=== PATIENT | male | born 1965 | race Hispanic/Latino ===

== ENCOUNTER 2018-08-14 08:41 | Inpatient (IN) | payer MEDICARE ==
[2018-08-14] VITALS (20 sets, daily range): BP systolic 143–183; BP diastolic 61–109
[~2018-08-14] VITALS: Ht 167.6 cm; Wt 81.3 kg
[~2018-08-14 08:41] MED LIST: BENTYL10 MG PO; CEFDINIR300 MG PO; CLONIDINE HCL0.1 MG PO; DEXILANT30 MG PO; GABAPENTIN100 MG PO; HYDRALAZINE HCL50 MG PO; ISOSORBIDE DINI20 MG PO; LABETALOL HCL200 MG PO; LISINOPRIL10 MG PO; OMEPRAZOLE20 M1 PO; PLAVIX75 MG PO; PRAVASTATIN SOD20 MG PO; SERTRALINE HCL50 MG PO; ULTRAM 50MG50 MG PO
--- OUTSIDE RECORDS SUMMARY | 2018-08-14 08:45 | XMS REPORT ---
Author Author [facility] Address Unknown Phone Unavailable Care Team Providers Care [employer] Hand Name Role Phone Unavailable Unavailable Problems This patient has no known problems. Allergies, Adverse Reactions, Alerts This patient has no known allergies or adverse reactions. Medications This patient has no known medications. Encounters Start Date/Time End Date/Time Encounter Type Admission Type Attending [facility] Facility Care Department Encounter ID 2018-06-22 00:00:00 2018-06-22 00:00:00 Outpatient [facility] [id number] 2018-06-16 00:00:00 2018-06-16 00:00:00 Outpatient [facility] [id number] 2018-06-15 00:00:00 2018-06-15 00:00:00 Outpatient [facility] [id number] 2018-05-18 00:00:00 2018-05-18 00:00:00 Outpatient [facility] [id number] 2018-05-16 00:00:00 2018-05-16 00:00:00 Outpatient [facility] [id number] 2018-05-12 15:43:22 2018-05-12 15:43:22 Outpatient [facility] [id number] 2018-05-12 00:00:00 2018-05-12 00:00:00 Outpatient [facility] [id number] 2018-05-04 00:00:00 2018-05-04 00:00:00 Outpatient [facility] [id number] 2018-04-11 00:00:00 2018-04-11 00:00:00 Outpatient [facility] [id number] 2018-03-11 00:00:00 2018-03-11 00:00:00 Outpatient [facility] [id number] 2018-01-06 00:00:00 2018-01-06 00:00:00 Outpatient [facility] [id number] 2017-11-26 13:31:15 2017-11-26 13:31:15 Outpatient [facility] [id number] 2017-11-26 12:01:33 2017-11-26 12:01:33 Outpatient [facility] [id number] 2017-11-24 00:00:00 2017-11-24 00:00:00 Outpatient [facility] [id number] 2017-10-21 15:39:05 2017-10-21 15:39:05 Outpatient [facility] [id number] 2017-10-20 00:00:00 2017-10-20 00:00:00 Outpatient [facility] [id number] 2017-10-13 09:56:09 2017-10-13 09:56:09 Outpatient [facility] [id number] 2017-10-13 09:40:29 2017-10-13 09:40:29 Outpatient [facility] [id number] 2017-10-06 08:24:23 2017-10-06 08:24:23 Outpatient [facility] [id number] 2017-09-24 13:01:31 2017-09-24 13:01:31 Outpatient [facility] [id number] 2017-09-22 12:05:38 2017-09-22 12:05:38 Outpatient [facility] [id number] 2017-09-15 00:00:00 2017-09-15 00:00:00 Outpatient [facility] [id number] 2017-09-01 00:00:00 2017-09-01 00:00:00 Outpatient [facility] [id number] 2017-08-26 14:42:27 2017-08-26 14:42:27 Outpatient [facility] [id number] 2017-07-20 00:00:00 2017-07-20 00:00:00 Outpatient [facility] [id number] 2017-07-14 15:18:21 2017-07-14 15:18:21 Outpatient [facility] [id number] 2017-06-23 00:00:00 2017-06-23 00:00:00 Outpatient [facility] [id number] 2017-06-03 00:00:00 2017-06-03 00:00:00 Outpatient [facility] [id number]
[2018-08-14] MEDS ORDERED: SODIUM CHLORIDE 0.9% 1000ML 1,000 ML IV STA (09:06)
[2018-08-14] MEDS ORDERED: LEVOFLOXACIN 500MG/D5W 100ML 100 ML IV STA (09:40)
[2018-08-14] MEDS ORDERED: ACETAMINOPHEN 1000 MG/100 ML IV NR (09:45)
[2018-08-14 09:48] LABS: BASOPHILS % 0.5 % (0.0-1.0); EOSINOPHILS # (AUTO) 0.1 (0.0-0.4); EOSINOPHILS % 0.6 % (0.0-6.0); HEMATOCRIT 17.7 % (38.2-49.6); LYMPHOCYTES # (AUTO) 0.5 (1.0-3.2); LYMPHOCYTES % 6.3 % (18.0-39.1); MEAN CORPUSCULAR HEMOGLOBIN 29.2 pg (28-32); MEAN CORPUSCULAR HGB CONC 32.2 g/dL (31-35); MEAN CORPUSCULAR VOLUME 90.8 fL (81-99); MONOCYTES # (AUTO) 0.7 (0.2-0.8); MONOCYTES % 8.3 % (4.4-11.3); NEUTROPHILS # (AUTO) 6.8 (2.1-6.9); PLATELET COUNT 169 x10e3/uL (140-360); RED BLOOD COUNT 1.95 x10e6/uL (4.3-5.7); RED CELL DISTRIBUTION WIDTH 14.6 % (11.7-14.4)
[2018-08-14 09:51] LABS: HEMOGLOBIN 5.7 g/dL (14.0-18.0)
[2018-08-14 09:59] LABS: INR 1.26; PROTHROMBIN TIME 16.9 seconds (11.9-14.5)
[2018-08-14 10:00] LABS: ALBUMIN/GLOBULIN RATIO 0.9 (0.8-2.0); ANION GAP 16.2 mmol/L (8-16); CALCIUM 7.7 mg/dL (8.4-10.2); CREATININE, SERUM 7.23 mg/dL (0.72-1.25); MAGNESIUM 1.5 MG/DL (1.3-2.1); PARTIAL THROMBOPLASTIN TIME 47.4 seconds (23.8-35.5); POTASSIUM 4.2 mmol/L (3.5-5.1)
[2018-08-14] MEDS ORDERED: MEROPENEM 1GM 100 ML IV NR (10:00)
[2018-08-14] MEDS ORDERED: SODIUM CHLORIDE 0.9% 250ML 250 ML IV ONE (10:00)
[2018-08-14 10:02] LABS: COLOR,URINE YELLOW (YELLOW)
[2018-08-14 10:03] LABS: BILIRUBIN,URINE NEGATIVE (NEGATIVE); CLARITY,URINE CLEAR (CLEAR); KETONES,URINE NEGATIVE (NEGATIVE); LEUKOCYTE ESTERASE ,URINE 1+ (NEGATIVE); NITRITE,URINE NEGATIVE (NEGATIVE); PROTEIN,URINE DIPSTICK 2+ (NEGATIVE); URINE UROBILINOGEN 0.2 mg/dL (0.2 - 1)
[2018-08-14 10:14] LABS: BACTERIA,URINE RARE /HPF; RBC,URINE 0-5 /HPF (0-5); WBC,URINE (MAN) 21-50 /HPF (0-5)
[2018-08-14 10:24] LABS: B-TYPE NATRIURETIC PEPTIDE2 330.6 pg/mL (0-100)
[2018-08-14 10:25] LABS: INFLUENZAE A&B ANTIGEN (RAPID) NEGATIVE (NEGATIVE)
--- NOTE | 2018-08-14 10:34 | NUR ---
PER DR LINDO GFR 8 ORDERED TO STOP IV FLUIDS - DONE
[2018-08-14 10:35] LABS: STREPTOCOCCUS GRP A ANTIGEN NEGATIVE (NEGATIVE)
[2018-08-14 10:51] LABS: CREATINE KINASE MB 0.8 ng/mL (0-5.0)
--- NOTE | 2018-08-14 11:00 | Diagnostic Imaging Report ---
EXAMINATION: CHEST SINGLE (PORTABLE) COMPARISON: Report of chest x-ray performed 11/23/2016. Images are not available for comparison. INDICATION: Shortness of breath DISCUSSION: Frontal view of the chest obtained at 1038 hours. HEART AND MEDIASTINUM: The heart is mildly enlarged. Central pulmonary vasculature is prominent. LINES: None. LUNGS: Patchy airspace opacities in the left lung base may be the result of vascular congestion or an alveolar process such as pneumonia. No interstitial thickening. PLEURA: No pleural effusion or pneumothorax. BONES AND SOFT TISSUES: No focal osseous lesion. The soft tissues are normal. IMPRESSION: Cardiomegaly and vascular prominence. Patchy airspace opacities in the left lung base may be vascular or the result of an alveolar process. Recommend correlation with PA and lateral chest x-ray if clinically feasible. Signed by: Dr. Clifford Yee MD on 08/14/2018 10:57 AM
--- NOTE | 2018-08-14 11:03 | NUR ---
TYPE AND CROSS SENT
--- NOTE | 2018-08-14 11:30 | NUR ---
CONSENT FOR BLOOD PRODUCT ADMINISTRATION SIGNED BY PT. Addendum: 08/14/18 at [address] LINDO SIGNS BLOOD ADMINISTRATION CONSENT FORM. ALL CONSENT SIGNATURES COMPLETE AT THIS TIME.
[2018-08-14] MEDS ORDERED: AZTREONAM 2 GM VIAL IV SCH (11:45)
[2018-08-14] MEDS ORDERED: DEXTROSE 50% SYRINGE 50 ML IV PRN (11:45)
[2018-08-14] MEDS ORDERED: SODIUM CHLORIDE 0.9% 1000ML 1,000 ML IV ONE (11:45)
--- OUTSIDE RECORDS SUMMARY | 2018-08-14 11:56 | XMS REPORT | Clinical Summary ---
Author Author [facility] Organization [facility] Address Unknown Phone Unavailable Care Team Providers Care Tobacco Cloth Reclaimer Name Role Phone Mario Nickerson MD PCP Allergies No Known Allergies Medications End Date Status Medication Sig Dispensed Refills Start Date Active clopidogrel (PLAVIX) 75 TAKE 1 TABLET 90 tablet 1 mg tabletIndications: BY MOUTH 6 Cerebrovascular accident EVERY DAY (CVA) due to other mechanism Active clotrimazole (LOTRIMIN) 1 Apply 1-2 30 mL 3 % external drops to 7 solutionIndications: affected Onychomycosis nails 2 times a day. Use a nail file to keep nails thin. Treatment may take up to 1 year. Active amLODIPine (NORVASC) 10 Take 1 tablet 90 tablet 3 mg tabletIndications: HTN by mouth 8 (hypertension), benign daily. Active calcitriol (ROCALTROL) Take 1 90 capsule 3 0.25 mcg capsule by 8 capsuleIndications: mouth daily. Vitamin D deficiency Active labetalol (NORMODYNE) 200 TAKE 2 180 tablet 0 mg tabletIndications: HTN TABLETS (400 8 (hypertension), benign MG) BY MOUTH EVERY 8 HOURS DIRECTED. Active sevelamer carbonate Take 1 tablet 270 tablet 2 (RENVELA) 800 mg by mouth 3 8 tabletIndications: CKD times daily (chronic kidney disease), with meals. stage V, Hyperphosphatemia Active pravastatin (PRAVACHOL) TAKE 1 TABLET 90 tablet 1 20 mg tabletIndications: BY MOUTH ONCE 8 Mixed hyperlipidemia AT BEDTIME Active sertraline (ZOLOFT) 50 mg Take 1 tablet 90 tablet 1 tabletIndications: by mouth 8 Anxiety disorder, daily. unspecified type Active isosorbide dinitrate Take 1 tablet 270 tablet 1 (ISORDIL) 20 mg by mouth 3 8 tabletIndications: times daily. Coronary artery disease 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 pectoris Active Leg Brace (KNEE SUPPORT by 2 Each 0 BRACE) MiscIndications: Misc.(Non-Phillip 8 Arthralgia of both lower g; Combo legs, Physical Route) route deconditioning, Dynasplint or Hemiplegia, dominant side smiliar for S/P CVA (cerebrovascular knee. accident) Active hydrALAZINE (APRESOLINE) TAKE 4 360 tablet 3 25 mg tabletIndications: TABLETS BY 8 Essential hypertension MOUTH every 8 hours. Active baclofen (LIORESAL) 10 mg Take 1 tablet 60 tablet 3 tabletIndications: Spasm by mouth 2 8 of muscle times daily. Active labetalol (NORMODYNE) 200 TAKE 1 TABLET 180 tablet 1 mg tabletIndications: HTN BY MOUTH 8 (hypertension), benign TWICE A DAY Active DEXILANT 30 mg delayed TAKE 1 90 capsule 1 release CAPSULE BY 8 capsuleIndications: MOUTH DAILY. Gastroesophageal reflux disease without esophagitis Active lisinopril (PRINIVIL, Take 1 tablet 180 tablet 1 ZESTRIL) 20 mg by mouth 2 8 tabletIndications: HTN times daily. (hypertension), benign 08/26/2017 Discontinued folic acid (FOLVITE) 1 mg Take 1 mg by 0 tablet mouth daily. 08/26/2017 Discontinued predniSONE (DELTASONE) 10 Take 10 mg by 0 mg tablet mouth daily. 08/26/2017 Discontinued lisinopril (ZESTRIL) 20 Take 1 tablet 30 tablet 1 mg tabletIndications: by mouth 5 Essential hypertension, daily. benign 08/26/2017 Discontinued gabapentin (NEURONTIN) Take 1 90 capsule 3 100 mg capsule by 5 capsuleIndications: CVA mouth 3 times daily. 08/26/2017 Discontinued cyclobenzaprine Take 1 tablet 60 tablet 1 (FLEXERIL) 10 mg by mouth 3 5 tabletIndications: Back times daily pain as needed for Muscle Spasms. 08/26/2017 Discontinued ketoconazole (NIZORAL) 2 Apply to 60 g 0 % topical affected area 5 creamIndications: daily. 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 08/26/2017 Discontinued insulin NPH (NOVOLIN N, Inject 8 20 mL 3 HUMULIN N) 100 unit/mL Units under 6 injectionIndications: the skin Diabetes mellitus type 2, every morning controlled, with (before complications breakfast). 08/26/2017 Discontinued lidocaine 5 % Apply to 1 Tube 0 OintIndications: Low back affected 6 pain without sciatica, area. unspecified back pain laterality, unspecified chronicity 08/26/2017 Discontinued dexlansoprazole Take 1 90 capsule 1 (DEXILANT) 30 mg delayed capsule by 6 release mouth daily. capsuleIndications: Gastroesophageal reflux disease without esophagitis 09/24/2017 Discontinued baclofen (LIORESAL) 10 mg Take 1 tablet 60 tablet 1 tabletIndications: Spasm by mouth 2 6 of muscle times daily. 08/26/2017 Discontinued loratadine (CLARITIN) 10 Take 1 tablet 90 tablet 1 mg tabletIndications: by mouth 6 Postnasal drip daily. 08/26/2017 Discontinued mometasone (NASONEX) 50 2 Sprays by 17 g 3 mcg/actuation nasal each nostril 6 sprayIndications: route daily. Postnasal drip 08/26/2017 Discontinued pravastatin (PRAVACHOL) Take 1 tablet 90 tablet 1 20 mg tabletIndications: by mouth at 6 Mixed hyperlipidemia bedtime nightly. 08/26/2017 Discontinued labetalol (NORMODYNE) 200 TAKE 1 TABLET 180 tablet 1 mg tabletIndications: HTN BY MOUTH 2 6 (hypertension), malignant TIMES DAILY.. 08/26/2017 Discontinued lisinopril (PRINIVIL, TAKE 1 TABLET 180 tablet 1 ZESTRIL) 20 mg BY MOUTH 7 tabletIndications: HTN TWICE A DAY (hypertension), benign 10/21/2017 Discontinued sertraline (ZOLOFT) 50 mg TAKE 1 TABLET 90 tablet 1 tabletIndications: BY MOUTH 7 Anxiety disorder, EVERY DAY unspecified type 08/13/2017 Discontinued hydrALAZINE (APRESOLINE) TAKE 3 360 tablet 0 25 mg tabletIndications: TABLETS BY 7 Essential hypertension MOUTH every 8 hours. 09/24/2017 Discontinued cloNIDine HCl (CATAPRES) Take 1 tablet 180 tablet 1 0.1 mg tabletIndications: by mouth 2 7 Essential hypertension times daily. 02/28/2018 Discontinued isosorbide dinitrate Take 1 tablet 270 tablet 1 (ISORDIL) 20 mg by mouth 3 7 tabletIndications: times daily. Coronary artery disease 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 pectoris 09/24/2017 Discontinued hydrALAZINE (APRESOLINE) TAKE 3 360 tablet 0 25 mg tabletIndications: TABLETS BY 8 Essential hypertension MOUTH every 8 hours. 02/12/2018 Discontinued lisinopril (PRINIVIL, Take 1 tablet 180 tablet 1 ZESTRIL) 20 mg by mouth 2 8 tabletIndications: HTN times daily. (hypertension), benign 02/12/2018 Discontinued pravastatin (PRAVACHOL) Take 1 tablet 90 tablet 1 20 mg tabletIndications: by mouth at 8 Mixed hyperlipidemia bedtime nightly. 05/18/2018 Discontinued dexlansoprazole Take 1 90 capsule 1 (DEXILANT) 30 mg delayed capsule by 8 release mouth daily. capsuleIndications: Gastroesophageal reflux disease without esophagitis 10/25/2017 Discontinued labetalol (NORMODYNE) 200 TAKE 1 TABLET 180 tablet 1 mg tabletIndications: HTN BY MOUTH 2 8 (hypertension), benign TIMES DAILY.. 12/24/2017 Discontinued hydrALAZINE (APRESOLINE) TAKE 4 360 tablet 1 25 mg tabletIndications: TABLETS BY 8 Essential hypertension MOUTH every 8 hours. 10/06/2017 tropicamide (MYDRIACYL) Instill 1 15 mL 0 0.5 % ophthalmic Drop in each 8 solutionIndications: eye once as Controlled type 2 needed for up diabetes mellitus with to 1 dose complication, without (for poor long-term current use of retina scan insulin image). 05/04/2018 Discontinued sertraline (ZOLOFT) 50 mg TAKE 1 TABLET 90 tablet 1 tabletIndications: BY MOUTH 8 Anxiety disorder, EVERY DAY unspecified type 11/23/2017 Discontinued labetalol (NORMODYNE) 200 TAKE 2 180 tablet 0 mg tabletIndications: HTN TABLETS (400 8 (hypertension), benign MG) BY MOUTH EVERY 8 HOURS DIRECTED 05/12/2018 Discontinued hydrALAZINE (APRESOLINE) TAKE 4 360 tablet 3 25 mg tabletIndications: TABLETS BY 8 Essential hypertension MOUTH every 8 hours. 08/01/2018 Discontinued lisinopril (PRINIVIL, TAKE 1 TABLET 180 tablet 1 ZESTRIL) 20 mg BY MOUTH 2 8 tabletIndications: HTN TIMES DAILY. (hypertension), benign 05/12/2018 Discontinued isosorbide dinitrate Take 1 tablet 270 tablet 1 (ISORDIL) 20 mg by mouth 3 8 tabletIndications: times daily. 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 accident) 05/12/2018 Discontinued Leg Brace (KNEE SUPPORT by 2 Each 0 BRACE) MiscIndications: Misc.(Non-Phillip 8 Arthralgia of both lower g; Combo legs, Physical Route) route. deconditioning, Hemiplegia, dominant side S/P CVA (cerebrovascular accident) 05/16/2018 Discontinued hydrALAZINE (APRESOLINE) TAKE 4 360 tablet 3 25 mg tabletIndications: TABLETS BY 8 Essential hypertension MOUTH every 8 hours. 05/16/2018 Discontinued baclofen (LIORESAL) 10 mg Take 1 tablet 60 tablet 1 tabletIndications: Spasm by mouth 2 8 of muscle times daily. Active Problems Problem Noted Date Normocytic anemia 09/24/2017 Vitamin D deficiency 09/24/2017 Hemiplegia, dominant side S/P CVA (cerebrovascular accident) 06/10/2015 Diabetic nephropathy 05/28/2015 Anxiety disorder 04/09/2015 Pseudobulbar affect 04/09/2015 Chronic kidney disease (CKD) stage G5/A1, glomerular filtration rate (GFR) less than or equal to 15 mL/min/1.73 square meter and albuminuria creatinine ratio less than 30 mg/g Overview: followed by Renal HTN (hypertension), benign Encounters Care Team Description Date Type Specialty Latonya Ward RN 08/05/2018 Clinical Case Social Work Mgt Lily Luther RN HTN (hypertension), benign 07/29/2018 Refill Family Practice Deven Keller 06/22/2018 Clinical Case Social Work Mgt Rolando Faustin MD HTN (hypertension), benign; Gastroesophageal reflux disease without esophagitis 05/18/2018 Refill [facility] Mario Nickerson MD Essential hypertension; Spasm of muscle 05/16/2018 Refill [facility] Mario Nickerson MD Arthralgia of both lower legs (Primary Dx); Physical deconditioning; Coronary artery disease 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 pectoris; Chronic kidney disease (CKD) stage G5/A1, glomerular filtration rate (GFR) less than or equal to 15 mL/min/1.73 square meter and albuminuria creatinine ratio less than 30 mg/g; Hemiplegia, dominant side S/P CVA (cerebrovascular accident); Controlled type 2 diabetes mellitus with complication, without long-term current use of insulin; Wheelchair dependent; Unsteadiness on feet; Essential hypertension; Spasm of muscle 05/12/2018 Office Visit Family Practice Lily Luther RN Information Only 05/12/2018 Telephone [facility] Lily Luther RN Anxiety disorder, unspecified type 05/04/2018 Refill [facility] Patricia George MD Essential hypertension 04/18/2018 Refill Nephrology Mario Nickerson MD Pcp Communication 04/11/2018 Telephone [facility] Yuridia Eagle LVN Coronary artery disease 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 pectoris 02/28/2018 Refill [facility] Rolando Faustin MD Mixed hyperlipidemia; HTN (hypertension), benign 02/12/2018 Refill [facility] Lily Luther RN Cerebrovascular accident (CVA) due to other mechanism 02/04/2018 Refill Family Practice Manju Edwards RN Cerebrovascular accident (CVA) due to other mechanism 01/27/2018 Refill [facility] Sonya Alexander Wet Trimmer 01/26/2018 Telephone Social Work Sonya Alexander Wet Trimmer 01/26/2018 Telephone Social Work Mario Nickerson MD Hemiplegia, dominant side S/P CVA (cerebrovascular accident) (Primary Dx); Right hand pain 01/25/2018 Orders Only Family Practice Patricia George MD Essential hypertension 12/24/2017 Orders Only Nephrology Panda Cunha LVN Essential hypertension 12/22/2017 Orders Only [facility] Patricia George MD Essential hypertension 12/07/2017 Refill Nephrology Becky Feliciano LVN Labs Only 11/29/2017 Telephone Rheumatology Em Stout MD Khan, Mubeen, MD Pyuria (Primary Dx); Hemiplegia due to recent cerebrovascular accident (CVA); CKD (chronic kidney disease), stage V; Hyperphosphatemia 11/26/2017 Office Visit Nephrology Patricia George MD Chronic kidney disease (CKD) stage G5/A1, glomerular filtration rate (GFR) less than or equal to 15 mL/min/1.73 square meter and albuminuria creatinine ratio less than 30 mg/g 11/26/2017 Hospital Lab Encounter Yoana Lo RN Lab Follow-up 11/25/2017 Telephone Cardiology Patricia George MD Chronic kidney disease (CKD) stage G5/A1, glomerular filtration rate (GFR) less than or equal to 15 mL/min/1.73 square meter and albuminuria creatinine ratio less than 30 mg/g (Primary Dx) 11/24/2017 Orders Only Nephrology Mona Dozier RN HTN (hypertension), benign 11/23/2017 Refill [facility] Rolando Faustin MD HTN (hypertension), benign 10/25/2017 Refill Family Practice Mario Nickerson MD Controlled type 2 diabetes mellitus with complication, without long-term current use of insulin 10/21/2017 Orders Only [facility] Joselito Em III, MD Anxiety disorder, unspecified type 10/21/2017 Refill Family Practice Mario Nickerson MD Essential hypertension (Primary Dx); Coronary artery disease 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 pectoris; Hemiplegia, dominant side S/P CVA (cerebrovascular accident); Chronic kidney disease, unspecified CKD stage; Controlled type 2 diabetes mellitus with complication, without long-term current use of insulin 10/06/2017 Office Visit Family Practice Em Stout MD Teakell, Jade M, MD Anxiety disorder, unspecified type (Primary Dx); Pseudobulbar affect; Diabetic nephropathy associated with type 2 diabetes mellitus; Hemiplegia, dominant side S/P CVA (cerebrovascular accident); Chronic kidney disease (CKD) stage G5/A1, glomerular filtration rate (GFR) less than or equal to 15 mL/min/1.73 square meter and albuminuria creatinine ratio less than 30 mg/g; HTN (hypertension), benign; Normocytic anemia; Vitamin D deficiency; Essential hypertension 09/24/2017 Office Visit Nephrology Rolando Faustin MD Needs flu shot (Primary Dx); HTN (hypertension), benign; Mixed hyperlipidemia; Gastroesophageal reflux disease without esophagitis; Diabetic nephropathy associated with type 2 diabetes mellitus; CKD (chronic kidney disease) stage 3, GFR 30-59 ml/min 08/26/2017 Office Visit Family Practice Nikunj Da Silva RN Essential hypertension 08/13/2017 Refill Family Practice after 08/13/2017 Immunizations Name Dates Previously Given Next Due Influenza Vaccine, 08/26/2017 (Deferred: Patient Refused) Seasonal, Injectable TDap (Tetanus Toxoid, 05/12/2018 (Deferred: Patient Refused) Reduced Diphtheria Toxoid And Acellular Pertussis, Absorbed) Family History Medical History Relation Name Comments Diabetes Mother Hypertension Mother Relation Name Status Comments Brother Brother Father Mother Alive Sister Alive Sister Alive Social History Date Tobacco Use Types Packs/Day Years Used Never Smoker Smokeless Tobacco: Never Used Tobacco Cessation: Counseling Given: Yes Alcohol Use Drinks/Week oz/Week Comments No Sex Assigned at Date Recorded Not on file Industry Job Start Date Occupation Not on file Not on file Not on file Travel End Travel History Travel Start No recent travel history available. Last Filed Vital Signs Time Taken Vital Sign Reading 05/12/2018 3:44 PM CDT Blood Pressure 129/62 05/12/2018 3:44 PM CDT Pulse 85 05/12/2018 3:44 PM CDT Temperature 36.4 C (97.5 F) 05/12/2018 3:44 PM CDT Respiratory Rate 20 11/26/2017 1:31 PM CDT Oxygen Saturation 96% - Inhaled Oxygen - Concentration 05/12/2018 3:44 PM CDT Weight 97.5 kg (215 lb) 05/12/2018 3:44 PM CDT Height 167.6 cm (5' 6") 05/12/2018 3:44 PM CDT Body Mass Index 34.7 Plan of Treatment Health Maintenance Due Date Last Done Comments DM Retinal Exam (Yearly) 12/06/2016 12/07/2015, 11/05/2014, 11/05/2014 IMM Influenza Seasonal 05/16/2018 06/05/2015 (Postponed) May to October (>/=19 yrs) DM Foot Exam (Yearly) 07/14/2018 07/14/2017, 11/01/2014 DM HGBA1C (Yearly) 09/22/2018 09/22/2017, 05/27/2016, 12/11/2015, Additional history exists CORONARY ARTERY DISEASE 10/13/2018 10/13/2017, 12/11/2015, 10/19/2014 AGE 18 AND UP Colorectal Cancer Scrn 10/21/2018 10/21/2017 Annual (FIT/FOBT) Age 50 to 75 Procedures Comments Procedure Name Priority Date/Time Associated Diagnosis VIT D, 25-HYDROXY Routine 11/26/2017 12:12 PM CDT PHOSPHORUS Routine 11/26/2017 12:12 PM CDT INTACT PTH Routine 11/26/2017 12:12 PM CDT BASIC METABOLIC PANEL Routine 11/26/2017 12:12 PM CDT URINE CULTURE Routine 11/26/2017 Pyuria 12:03 PM CDT UA CHEMISTRIES Routine 11/26/2017 12:03 PM CDT OCCULT BLOOD ICT Routine 10/21/2017 Controlled type 2 3:38 PM ENAMEL MACHINE OPERATOR diabetes mellitus with complication, without long-term current use of insulin LIPID PROFILE Routine 10/13/2017 Controlled type 2 8:59 AM ENAMEL MACHINE OPERATOR diabetes mellitus with complication, without long-term current use of insulin HEMOGLOBIN A1C Routine 09/22/2017 Diabetic nephropathy 12:04 PM ENAMEL MACHINE OPERATOR associated with type 2 diabetes mellitus COMPREHENSIVE METABOLIC Routine 09/22/2017 Diabetic nephropathy PANEL(DBIL NOT INCLUDED) 12:04 PM ENAMEL MACHINE OPERATOR associated with type 2 diabetes mellitus CKD (chronic kidney disease) stage 3, GFR 30-59 ml/min CBC/DIFF Routine 09/22/2017 Gastroesophageal reflux 12:04 PM ENAMEL MACHINE OPERATOR disease without esophagitis after 08/13/2017 Results * VIT D, 25-HYDROXY (11/26/2017 12:12 PM CDT) Vit D, 33.9 30 - 100 ng/mL [facility] 25-Hydroxy Comment: IMMUNOLOGY Vitamin D deficiency has been defined by the [place] of [employer] and Endocrine Society guideline as a level of serum 25-OH Vitamin D less than 20 ng/mL. The Endocrine Society further defines Vitamin D insufficiency as a level between 21 and 29 ng/mL and sufficiency as a level between 30 and 100 ng/mL. Performing Organization Address City/State/Zipcode Phone Number [facility] IMMUNOLOGY * INTACT PTH (11/26/2017 12:12 PM CDT) Intact PTH 805.20 (H) 8.7 - 77.1 pg/mL [facility] 2 Performing Organization Address City/State/Zipcode Phone Number [facility] 2 * PHOSPHORUS (11/26/2017 12:12 PM CDT) Phosphorus 6.0 (H) 2.5 - 4.9 mg/dL [facility] 2 Performing Organization Address City/State/Zipcode Phone Number [facility] 2 * BASIC METABOLIC PANEL (11/26/2017 12:12 PM CDT) CO2 20 (L) 21 - 32 mmol/L [facility] 2 Chloride 106 98 - 107 mmol/L [facility] 2 Potassium 4.2 3.50 - 5.10 mmol/L [facility] 2 Sodium 138 136 - 145 mmol/L [facility] 2 Glucose 81 70 - 99 mg/dL [facility] 2 Urea Nitrogen 78 (H) 7 - 18 mg/dL [facility] 2 Creatinine 5.85 (H) 0.60 - 1.30 mg/dL [facility] 2 Anion Gap 12 [facility] 2 Calcium 8.3 (L) 8.50 - 10.20 mg/dL [facility] 2 GFR, Estimated 10 mL/min/1.73 m2 [facility] 2 GFR, Estim, 12 mL/min/1.73 m2 [facility] Afr-Am [facility] 2 Performing Organization Address City/[facility]/[employer] Phone Number [facility] 2 * UA CHEMISTRIES (11/26/2017 12:03 PM CDT) Color Yellow [facility] 4 Clarity Cloudy [facility] 4 Spec Advance 1.008 1.001 - 1.035 [facility] 4 pH 5.0 5 - 8 [facility] 4 Protein 2+ (A) NEG [facility] 4 Glucose Negative NEG [facility] 4 Ketone Negative NEG [facility] 4 Bilirubin Negative NEG [facility] 4 Nitrate Negative NEG [facility] 4 Urobilinogen <1.0 0.2 - 1.0 EU/dL [facility] 4 Leukocyte 3+ (A) NEG [facility] 4 Blood 1+ (A) NEG [facility] 4 RBC 9 (H) 0 - 4 /HPF [facility] 4 WBC >182 (H) 0 - 5 /HPF [facility] 4 Bacteria Many [facility] 4 Mucous Present [facility] 4 Performing Organization Address [facility]/[employer] Phone Number [facility] 4 * URINE CULTURE (11/26/2017 12:03 PM CDT) Spec Urine [facility] Description MICROBIOLOGY Order Comments None [facility] MICROBIOLOGY Culture >100,000 colonist/ml [facility] MICROBIOLOGY Klebsiella pneumoniae, this isolate is confirmed to have an extended spectrum B-lactamase(ESBL). Skin liana organisms Report Status Final 11/30/2017 BT MICROBIOLOGY Organism >100,000 colonist/ml [facility] MICROBIOLOGY Klebsiella pneumoniae, this isolate is confirmed to have an extended spectrum B-lactamase(ESBL). Method BRAD [facility] MICROBIOLOGY Amikacin <=8 Susceptible [facility] MICRO[facility]OLOG[facility] Cefazolin >16 Resistant [facility]CRO[facility] Cefepime >16 Resistant [facility] MICRO[facility] Ceftriaxone >32 Resistant [facility] MICRO[facility]OLOG[facility] Ceftazidime >16 Resistant [facility] MICROBIOLOGY Ciprofloxacin >2 Resistant [facility] MICROBIOLOGY Ertapenem >1 Resistant [facility] MICROBIOLOGY Gentamicin >8 Resistant [facility] MICROBIOLOG[facility] Nitrofurantoin 32 Susceptible [facility]CRO[facility] Tobramycin >8 Resistant [facility] MICROBIOLOG[facility] Trimeth-sulfame <=0.5/9.5 Susceptible [facility] MICROBIOLOGY thox Organism >100,000 colonist/ml [facility] MICROBIOLOGY Klebsiella pneumoniae, this isolate is confirmed to have an extended spectrum B-lactamase(ESBL). Method E Test [facility] MICROBIOLOGY Meropenem .38 Susceptible [facility] MICROBIOLOGY Specimen Urine - URINE Performing Organization Address [facility] Phone Number [facility] MICROBIOLOGY BT MICROBIOLOG[facility] * OCCULT BLOOD ICT (10/21/2017 3:38 PM ENAMEL MACHINE OPERATOR) Occult Blood Negative NEG [facility] ICT Specimen Stool Performing Organization Address [facility] Phone Number [facility] * LIPID PROFILE (10/13/2017 8:59 AM ENAMEL MACHINE OPERATOR) Cholesterol 145 mg/dL [facility] Comment: 3 REFERENCE RANGE: Desirable: <200 mg/dL Borderline: 200-240 mg/dL High Risk: >240 mg/dL Triglyceride 75 <150 mg/dL [facility] Comment: 3 REFERENCE RANGE: Normal: <150 mg/dL Borderline High: 150-199 mg/dL High: 200-499 mg/dL Very High: >xx=570 mg/dL HDL 43 mg/dL [facility] Comment: 3 Increased CHD risk: <40 mg/dL Decreased CHD risk: >60 mg/dL LDL 87 mg/dL [facility] Comment: 3 REFERENCE RANGE: Optimal: <100 mg/dL Near Optimal: 100-129 mg/dL Borderline High: 130-159 mg/dL High: 160-189 mg/dL Very High: >yk=261 mg/dL Specimen Blood Performing Organization Address [facility] Phone Number [facility] * HEMOGLOBIN A1C (09/22/2017 12:04 PM ENAMEL MACHINE OPERATOR) Hemoglobin A1c 5.7 4.3 - 6.1 % [facility] IMMUNOLOGY Est Average 116.9 mg/dL [facility] Gluc IMMUNOLOGY Specimen Blood Performing Organization Address [facility] Phone Number [facility] * COMPREHENSIVE METABOLIC PANEL(DBIL NOT INCLUDED) (09/22/2017 12:04 PM ENAMEL MACHINE OPERATOR) Albumin 3.3 (L) 3.4 - 5.0 g/dL [facility] 3 Calcium 8.4 (L) 8.50 - 10.20 mg/dL [facility] 3 CO2 21.7 21 - 32 mmol/L [facility] 3 Chloride 107 98 - 107 mmol/L [facility] 3 Creatinine 6.07 (H) 0.60 - 1.30 mg/dL [facility] 3 Glucose 109 (H) 70 - 99 mg/dL [facility] 3 Alk Phos 105 45 - 117 U/L [facility] 1 Potassium 3.9 3.50 - 5.10 mmol/L [facility] 3 Sodium 140 136 - 145 mmol/L [facility] 3 ALT 13 12 - 78 U/L [facility] 1 AST 7 (L) 15 - 37 U/L [facility] 1 Urea Nitrogen 70 (H) 7 - 18 mg/dL [facility] 3 T Bilirubin 0.5 0.2 - 1.0 mg/dL [facility] 1 T Protein 6.4 6.4 - 8.2 g/dL [facility] 1 GFR, Estimated 10 mL/min/1.73 m2 [facility] 3 GFR, Estim, 12 mL/min/1.73 m2 [facility] Afr-Am 3 Anion Gap 11.3 [facility]IN[facility] 3 Specimen Blood Performing Organization Address [facility] [facility]/Zipcode Phone Number M[facility] BT MAIN-STATION 3 BT MAIN-STATION 1 * CBC/DIFF (09/22/2017 12:04 PM ENAMEL MACHINE OPERATOR) WBC 6.3 4.5 - 12.0 K/uL BT MAIN-STATION 2 RBC 2.91 (L) 4.60 - 6.20 M/uL BT MAIN-STATION 2 Hemoglobin 8.4 (L) 14.0 - 18.0 g/dL BT MAIN-STATION 2 Hematocrit 26.8 (L) 40.0 - 54.0 % BT MAIN-STATION 2 MCV 92 82 - 92 fL BT MAIN-STATION 2 MCH 28.9 27.0 - 31.0 pg BT MAIN-STATION 2 MCHC 31.3 (L) 32.0 - 36.0 g/dL BT MAIN-STATION 2 RDW 48.4 (H) 35.1 - 43.9 fL BT MAIN-STATION 2 Platelet 205 150 - 400 K/uL BT MAIN-STATION 2 Mean Platelet 10.5 9.4 - 12.4 fL BT MAIN-STATION Volume 2 Percent NRBC 0.0 BT MAIN-STATION 2 Absolute NRBC 0.00 BT MAIN-STATION 2 Neutrophil 63.6 34.0 - 67.9 % BT MAIN-STATION 2 Lymphocyte 18.1 (L) 21.8 - 50.0 % BT MAIN-STATION 2 Monocyte 7.7 5.3 - 12.0 % BT MAIN-STATION 2 Eosinophil 9.0 (H) 0.8 - 5.0 % BT MAIN-STATION 2 Basophil 1.3 (H) 0.2 - 1.2 % BT MAIN-STATION 2 Pct Immat Gran 0.3 0.0 - 0.5 BT MAIN-STATION 2 Neutrophil, Abs 3.98 1.78 - 5.36 K/uL BT MAIN-STATION 2 Lymphocyte, Abs 1.13 (L) 1.32 - 3.57 K/uL BT MAIN-STATION 2 Monocyte, Abs 0.48 0.30 - 0.82 K/uL BT MAIN-STATION 2 Eosinophil, Abs 0.56 (H) 0.04 - 0.54 K/uL BT MAIN-STATION 2 Basophil, Abs 0.08 0.01 - 0.08 K/uL BT MAIN-STATION 2 Absol Immat 0.02 0.00 - 0.03 K/uL BT MAIN-STATION Gran 2 Specimen Blood Performing Organization Address City/State/Zipcode Phone Number M[facility] BT MAIN-STATION 2 after 08/13/2017 Insurance Type Payer Benefit Subscriber ID Effective Phone Address Plan / Dates Group MEDICARE MEDICARE xxxxxxxxxx 2015-P [phone] [id number] [place] [address]
[2018-08-14] MEDS: AZTREONAM 2GM/NS 100ML 100 ML IV SCH ×2 (12:00→23:35)
[2018-08-14] MEDS ORDERED: AZTREONAM 2GM/NS 100ML 100 ML IV SCH (12:00)
[2018-08-14 12:08] LABS: AMPHETAMINES SCREEN,URINE NEGATIVE (NEGATIVE); BENZODIAZEPINES SCREEN,URINE NEGATIVE (NEGATIVE); PHENCYCLIDINE SCREEN,URINE NEGATIVE (NEGATIVE)
[2018-08-14] MEDS ORDERED: AMLODIPINE BESY10 MG PO (13:41)
[2018-08-14] MEDS ORDERED: HYDRALAZINE HCL25 MG PO (13:41)
[2018-08-14] MEDS ORDERED: LISINOPRIL10 MG PO (13:41)
--- NOTE | 2018-08-14 14:38 | NUR ---
NOTIFIED DR MENDENHALL OF PT ARRIVAL AND NO NEW ORDERS REVD.
[2018-08-14] MEDS: ALBUTEROL SULF 0.083% NEB SOLN 3 ML NEB NEB SCH ×3 (15:40→19:00)
[2018-08-14] MEDS: IPRATROPIUM BROMIDE 0.02% 2.5 ML NEB NEB SCH ×2 (15:40→19:00)
[2018-08-14] MEDS: INSULIN LISPRO 100 UNIT/1 ML 3ML VIAL SQ SCH ×2 (16:30→21:00)
--- NOTE | 2018-08-14 17:19 | NUR ---
CALLED DR MENDENHALL TO NOTIFY OF BP AND HOME MEDS. ORDERS RECVD AND BEING COMPLETED. CONSULTED DR Nisha CHAVIS. S/W KATRINA.
[2018-08-14] MEDS: PANTOPRAZOLE SOD 40 MG TABEC PO SCH (17:56)
[2018-08-14] MEDS: HYDRALAZINE HCL 25 MG TAB PO SCH (17:56)
[2018-08-14] MEDS: LISINOPRIL 10 MG TAB PO SCH (17:57)
[2018-08-14] MEDS: FUROSEMIDE INJ 10 MG/ML 2 ML VIAL IV PRN ×2 (17:58→22:30)
[2018-08-14] MEDS: ISOSORBIDE DINITRATE 20 MG TAB PO SCH (17:59)
--- NOTE | 2018-08-14 18:40 | NUR ---
S/W DR CHAVIS REGARDING PT. WILL BE HERE TO SEE HIM. NO NEW ORDERS.
--- NOTE | 2018-08-14 19:13 | NUR ---
REPORT GIVEN TO
[2018-08-14] MEDS ORDERED: ONDANSETRON HCL INJ 2 MG/ML VIAL ONE (20:02)
[2018-08-14] MEDS ORDERED: ONDANSETRON HCL INJ 2 MG/ML VIAL IV PRN (20:15)
[2018-08-14] MEDS: ACETAMINOPHEN 325 MG TAB PO PRN (23:00)
[2018-08-14 23:49] LABS: CREATINE KINASE MB 0.7 ng/mL (0-5.0)
[2018-08-15] VITALS (17 sets, daily range): BP systolic 128–171; BP diastolic 53–106
[2018-08-15] MEDS ORDERED: SODIUM CHLORIDE 0.9% 1000ML 1,000 ML ONE (04:13)
[2018-08-15] MEDS: ALBUTEROL SULF 0.083% NEB SOLN 3 ML NEB NEB SCH ×6 (04:15→23:00)
[2018-08-15 04:43] LABS: BASOPHILS % 0.5 % (0.0-1.0); HEMOGLOBIN 8.5 g/dL (14.0-18.0); LYMPHOCYTES # (AUTO) 0.5 (1.0-3.2); MEAN CORPUSCULAR HGB CONC 32.7 g/dL (31-35); MEAN CORPUSCULAR VOLUME 88.7 fL (81-99); MONOCYTES # (AUTO) 0.6 (0.2-0.8); MONOCYTES % 7.8 % (4.4-11.3); NEUTROPHILS # (AUTO) 6.1 (2.1-6.9); NEUTROPHILS % 84.3 % (38.7-80.0); PLATELET COUNT 158 x10e3/uL (140-360); RED BLOOD COUNT 2.93 x10e6/uL (4.3-5.7); RED CELL DISTRIBUTION WIDTH 14.8 % (11.7-14.4)
[2018-08-15 05:15] LABS: CREATINE KINASE MB 0.9 ng/mL (0-5.0)
[2018-08-15 05:40] LABS: FOLATE 13.5 ng/mL (7.0-15.4)
[2018-08-15 06:20] LABS: FERRITIN 452.94 ng/mL (21.81-274.66)
[2018-08-15 06:23] LABS: ALBUMIN/GLOBULIN RATIO 0.9 (0.8-2.0); ANION GAP 19.9 mmol/L (8-16); CALCIUM 7.6 mg/dL (8.4-10.2); CREATININE, SERUM 7.07 mg/dL (0.72-1.25); POTASSIUM 3.9 mmol/L (3.5-5.1)
--- NOTE | 2018-08-15 06:29 | Diagnostic Imaging Report ---
EXAM: CHEST SINGLE (PORTABLE), AP 1 view INDICATION: Pneumonia COMPARISON: AP view of the chest August 14, 2018 FINDINGS: LINES/TUBES: None LUNGS: Vascular congestion and mild bibasilar atelectasis. PLEURA: No effusions or pneumothorax. HEART AND MEDIASTINUM: Stable appearance. BONES AND SOFT TISSUES: No acute findings. IMPRESSION: Vascular congestion and mild bibasilar atelectasis. Signed by: Dr. Kathy Moody M.D. on 08/15/2018 6:25 AM
--- NOTE | 2018-08-15 07:00 | NUR ---
BEDSIDE REPORT RECVD. ASSESSMENT COMPLETED AND RECORDED. VS RECORDED. PT VERBALIZES COMPLIANCE AND CONSENT WITH CURRENT POC.
[2018-08-15] MEDS: IPRATROPIUM BROMIDE 0.02% 2.5 ML NEB NEB SCH ×4 (07:08→19:00)
[2018-08-15] MEDS: INSULIN LISPRO 100 UNIT/1 ML 3ML VIAL SQ SCH ×2 (07:30→11:30)
[2018-08-15] MEDS: AMLODIPINE BESYLATE 10 MG TAB PO SCH (08:10)
[2018-08-15] MEDS: ISOSORBIDE DINITRATE 20 MG TAB PO SCH ×3 (08:10→22:00)
[2018-08-15] MEDS: ACETAMINOPHEN 325 MG TAB PO PRN (08:10)
[2018-08-15] MEDS: HYDRALAZINE HCL 25 MG TAB PO SCH (08:11)
[2018-08-15] MEDS: SERTRALINE HCL 50 MG TAB PO SCH (08:11)
[2018-08-15] MEDS: PANTOPRAZOLE SOD 40 MG TABEC PO SCH (08:11)
[2018-08-15] MEDS: LISINOPRIL 10 MG TAB PO SCH (08:11)
[2018-08-15] MEDS: MEROPENEM 500MG/ NS 50ML 50 ML IV SCH (08:14)
--- NOTE | 2018-08-15 08:50 | NUR ---
DR MENDENHALL MAKING ROUNDS. ORDERS RECVD AND BEING COMPLETED.
[2018-08-15] MEDS: SODIUM BICARBONATE 650 MG TAB PO SCH ×2 (09:00→17:00)
--- NOTE | 2018-08-15 10:57 | NUR ---
ATTEMPTED TO CALL REPORT
--- NOTE | 2018-08-15 11:06 | NUR ---
LEFT FOR DR MENDENHALL FOR TEMP 101.3.
--- NOTE | 2018-08-15 11:30 | History and Physical ---
CHIEF COMPLAINT: Fatigue, generalized weakness. HPI: This is a 53-year-old male with known history of hypertension, type-2 diabetes uncontrolled and also underlying CKD, stage 5, who comes into the ED with complaints of generalized weakness, fatigue and not feeling well over the last several days. Patient follows up with the [facility] etl software engineer there and was told that at some point he would need dialysis. Patient reports having some cough, congestion, and subjective fever at home. He also reports having some decreased oral intake as well. No nausea. No vomiting. No chest pain. Patient was seen and evaluated at bedside on the medical floor in the ICU currently doing well with no other issues. On admission, his hemoglobin was found to be 5. REVIEW OF SYSTEMS PERTINENT POSITIVES: Fatigue, generalized weakness, cough, congestion, subjective fever. PERTINENT NEGATIVES: Denies any chest pain, palpitations, nausea, vomiting, dysuria, hematuria, frequency, urgency, lightheadedness, dizziness, abdominal pain, headache, shortness of breath, or any other complaints. The rest of the 14-point review of systems have been reviewed with the patient and are negative. ALLERGIES: NO KNOWN DRUG ALLERGIES. HOME MEDICATIONS 1. Amlodipine 10 mg daily. 2. Dexilant 30 mg daily. 3. Hydralazine 100 mg daily. 4. Isosorbide dinitrate 20 mg p.o. t.i.d. 5. Lisinopril 20 mg daily. 6. Sertraline 50 mg daily. 7. Plavix 75 mg daily. PAST MEDICAL HISTORY: Hypertension, depression, CKD stage 5, anemia of CKD, uncontrolled type-2 diabetes, hypertension. SURGICAL HISTORY: Reports none. FAMILY HISTORY: Hypertension and diabetes. SOCIAL HISTORY: No drugs. No alcohol. Does not smoke. He is working. VITAL SIGNS: Temperature is 99.6. T-max is 101, current temperature 99.6. Pulse rate 118. Respiratory rate is 26. Blood pressure 132/58. Satting 100% on room air. LAB FINDINGS: White count 7.2. Hemoglobin on admission was 5.7, now 8.5 status post 3 units of packed RBC transfusion. MCV 88, hematocrit 26, platelets 158. Coagulation: PT 16.9, INR 1.2, PTT 47. Chemistry: Sodium 135, potassium 3.9, chloride 103, bicarb 16, anion gap 19, BUN 85, creatinine 7. GFR is 8. Glucose 94. Lactic acid is 4.4, which is normal. Anemia. His iron saturation is 7%. LFTs were normal. Troponins were negative. His total protein is 6.2, albumin 3, folate 13. Vitamin B12 is 443. Urinalysis concerning for underlying UTI. Urine drug screen was found to be negative. Flu negative. Group-A strep was negative. MICROBIOLOGY: Blood and urine cultures and throat cultures are all pending. IMAGING STUDIES: Chest x-ray shows cardiomegaly with vascular prominence. Patchy airspace opacity in the left lung may be vascular or resolved alveolar process. Repeat chest x-ray shows vascular congestion. PHYSICAL EXAMINATION GENERAL: Not in acute distress, alert and oriented x3, cooperative on examination. HEENT: Head is normocephalic, atraumatic. Eyes: Pupils are equal, round and reactive to light bilaterally. Extraocular movements are intact bilaterally. NECK: Supple. Good range of motion. THROAT: No evidence of any erythema or exudates in the posterior pharynx, has poor dentition. PULMONARY: Clear to auscultation bilaterally. Had some fine crackles appreciated. No rhonchi. CARDIOVASCULAR: Positive S1 and S2. No murmurs, rubs, or gallops appreciated. ABDOMEN: Soft, nondistended and nontender to palpation. Bowel sounds present. MUSCULOSKELETAL: Strength is 5/5 throughout. No evidence of any musculoskeletal deficits on examination. No weakness appreciated. NEUROLOGIC: Cranial nerves II through XII are grossly intact. No evidence of any neurologic deficit on exam. SKIN: Intact. Warm to touch. Good cap refill. PSYCHIATRIC: Normal affect and mood. EXTREMITIES: No edema. Good range of motion throughout. IMPRESSION 1. Chronic kidney disease, stage 5, with uremic symptoms of nausea, vomiting, and fatigue. 2. Iron deficiency anemia as well as anemia of chronic kidney disease. 3. Dehydration. 4. Community-acquired pneumonia seen on imaging studies. 5. Fever. 6. Type-2 diabetes. 7. Hypertension. 8. Metabolic acidosis. PLAN: At this time, in relation to his renal dysfunction, his creatinine is 7. He was told by his etl software engineer at [facility] that he will be starting dialysis soon. At this time, it seems like he is not very reluctant in starting, but his symptoms are concerning for uremic symptoms with nausea, vomiting, not feeling well, generalized weakness. I will go ahead and wait for now, repeat labs in the morning. Will discuss again with him about starting initiation of dialysis. I will start him on sodium bicarbonate tabs at 1300 mg p.o. b.i.d. due to his metabolic acidosis. His other electrolytes are stable. He actually looks clinically dehydrated on exam so I will not give him any diuretics. He was already given 3 units of packed RBC blood transfusion. Will go ahead and get a antisqueak chalker to see him as well. Antibiotics were started as well as aztreonam, and he was given also Merrem. Will continue with Merrem. Continue with antihypertensive medications. Pain control. Heparin for DVT prophylaxis. Will also put him on some DuoNeb for breathing treatments. Continue with broad-spectrum antibiotics. He is currently in the ICU. I spent more than 35 to 40 minutes of critical care time on this case. Once again, will also discuss this with this patient about needing dialysis here in the next 1 to 2 days. Job#: [id number]
--- NOTE | 2018-08-15 12:50 | NUR ---
S/W DR MENDENHALL. ORDERS RECVD. UPDATED CN. OK TO TRANSFER.
--- NOTE | 2018-08-15 14:55 | NUR ---
REPORT GIVEN TO MARY. PT TRANSFERRED VIA BED TO ROOM 294. TELEMETRY ON. TOLERATES WELL.
--- NOTE | 2018-08-15 15:27 | NUR ---
notified dr capps of consult
--- NOTE | 2018-08-15 16:00 | NUR ---
WOUND CARE CONSULTATION - INITIAL EVALUATION AND RECOMMENDATION Patient is a 53 year-old pleasant man admitted with nausea and vomiting, dehydration, acute on chronic renal failure and anemia. He has a history of hypertension, diabetes type 2, Left CVA with right hemiparesis, CKD, and renal insufficiency. Patient compalins of itching to gluteal area and says he has been scratching. Denies itching at groin areas or other areas of the body. He says he has not been eating well and last bowel movement was 3 days ago. He has had nausea and vomiting and unable to hold food down. He is on a Renal, ADA Diet. Head to to assessment performed and identified the following wounds: 1. Left Gluteal - Stage II - (6x3x0.1 cm). periwound frail. No Redness or swelling noted. No induration. LABS: WBC:7.28 RBC:2.93 Hgb:8.5 Hct: 26 Glu;94 Alb: 3.0Patient states has not had bowel movement in 3 days but has not bee able to hold food down as well. MICRO: Urine Cx; pending results Blood Cx; Pending results Throat Cx; Pending results RECOMMENDATION; 1. Dietary Consult 2. YULIA AIR MATTRESS 3. Turn and Repositon q2h 4. Right Gluteal Wound -( Stage II- PU) - Apply Venelex and Cover with Allevyn Foam Dressing Daily. Addendum: 08/15/18 at 1613 by Robert Andujar RN Amended: Links added.
[2018-08-15] MEDS ORDERED: IRON SUCROSE 100 MG in SODIUM CHLORIDE 0.9% 100 ML 100 ML IV ONE (19:00)
--- NOTE | 2018-08-15 19:10 | NUR ---
Completed bedside rounds with morning nurse. Pt alert to name. Lying in bed 60 degrees. Denies pain at this time. No acute distress noted.
[2018-08-15] MEDS: ALBUTEROL/IPRATROPIUM 3 ML NEB NEB PRN (20:45)
--- NOTE | 2018-08-15 20:49 | Diagnostic Imaging Report ---
EXAM: Renal Ultrasound INDICATION: Kidney failure. COMPARISON: None TECHNIQUE: Transverse and longitudinal images of the kidneys and bladder were obtained. FINDINGS: Right Kidney: Size: 9 cm in length Echogenicity: Increased Parenchymal thickness: Normal Collecting system: No hydronephrosis Stones: None Cyst/Mass: None Left Kidney: Size: 7.1 cm in length Echogenicity: Increased Parenchymal thickness: Normal Collecting system: No hydronephrosis Stones: None Cyst/Mass: None Bladder: Collapsed with Ricci catheter in place. Bladder wall is thickened measuring 1.7 cm in thickness. IMPRESSION: Small echogenic kidneys in keeping with medical renal disease. Bladder wall thickening. Recommend correlation with urinalysis to exclude cystitis. Signed by: DR. Lonny Doty MD on 08/15/2018 8:46 PM
[2018-08-15] MEDS: HEPARIN SOD (PORCINE) 5,000 UNIT/ML VIAL SC SCH (22:00)
[2018-08-16] VITALS (7 sets, daily range): BP systolic 138–171; BP diastolic 63–77
[2018-08-16] MEDS: ALBUTEROL/IPRATROPIUM 3 ML NEB NEB PRN (00:30)
--- NOTE | 2018-08-16 00:34 | Consultation ---
DATE OF CONSULTATION: August 15, 2018 REQUESTING PHYSICIAN: Dr. Eleonora Norwood SERVICE: Hematology-oncology. REASON FOR CONSULTATION: Evaluation and management of patient with anemia. HISTORY OF PRESENTING ILLNESS: Mr. Jacobs is a very pleasant 53-year-old gentleman with multiple medical problems including known history of hypertension, diabetes mellitus, coronary artery disease, and chronic kidney disease, admitted through emergency department due to generalized fatigue, weakness, and tiredness. He underwent workup revealing severe anemia with hemoglobin in 5 range. He was admitted initially to intensive care unit and received 3 units of PRBC transfusion, now is transferred to the floor. Hematology-oncology has been consulted to assist with the management. PAST MEDICAL HISTORY: 1. Chronic kidney disease, stage 5. 2. Depression. 3. Hypertension. 4. Anemia of chronic disease. 5. Uncontrolled diabetes mellitus. PAST SURGICAL HISTORY: AV fistula. FAMILY HISTORY: Hypertension and diabetes mellitus. SOCIAL HISTORY: Denies history of smoking, alcohol use, or illicit drug use. He lives in [place] with family. REVIEW OF SYSTEMS: Fourteen-point review of systems negative except as mentioned above in history of presenting illness. PHYSICAL EXAMINATION: VITAL SIGNS: Reviewed and as per electronic medical record. HEENT: PERRLA. Extraocular movements intact. Head atraumatic, normocephalic. NECK: Supple. CVS: S1 and S2 audible. RESPIRATORY: Decreased bilateral air entry. ABDOMEN: Soft. Positive bowel sounds. EXTREMITIES: Negative cyanosis. NEURO: Patient is alert, awake. LABORATORY DATA: White blood cell count of 7.2, hemoglobin 8.5, hematocrit 26.0, platelet 158,000. BUN 85, creatinine 7. ASSESSMENT AND PLAN: Mr. Jacobs is a very pleasant 53-year-old gentleman with multiple medical problems including known history of hypertension, diabetes mellitus, chronic kidney disease, and history of anemia of chronic disease, presented to the emergency department due to severe fatigue and tiredness. He was noted to have anemia with hemoglobin of 5. He was admitted to intensive care unit and received 3 units of packed red blood cells transfusion with improved count. Hematology-oncology has been consulted to assist with the management. I have reviewed the records and discussed at length with the patient about his condition and importance of further workup. Overall, this appeared to be a combination of anemia of chronic disease as well as iron deficiency anemia as patient's iron level is low. At this point, recommendation would be to closely monitor, and will give intravenous iron 1 dose. Patient definitely requires ongoing Procrit as well as iron therapy. This has been explained to the patient in detail. It was recommended patient to be followed up on outpatient setting to receive this treatment locally here in [place]. Appointment has been given to the patient for next week. Thank you for the consult. I will continue to be available. Please call with questions. Job#: [id number]
[2018-08-16] MEDS: IPRATROPIUM BROMIDE 0.02% 2.5 ML NEB NEB SCH ×4 (01:00→18:45)
[2018-08-16] MEDS: ALBUTEROL SULF 0.083% NEB SOLN 3 ML NEB NEB SCH ×6 (03:00→22:25)
[2018-08-16 06:03] LABS: BASOPHILS % 0.4 % (0.0-1.0); EOSINOPHILS # (AUTO) 0.1 (0.0-0.4); EOSINOPHILS % 1.9 % (0.0-6.0); HEMATOCRIT 22.6 % (38.2-49.6); HEMOGLOBIN 7.4 g/dL (14.0-18.0); LYMPHOCYTES # (AUTO) 0.7 (1.0-3.2); MEAN CORPUSCULAR HEMOGLOBIN 29.1 pg (28-32); MEAN CORPUSCULAR HGB CONC 32.7 g/dL (31-35); MONOCYTES # (AUTO) 0.6 (0.2-0.8); MONOCYTES % 8.3 % (4.4-11.3); NEUTROPHILS # (AUTO) 5.3 (2.1-6.9); NEUTROPHILS % 77.9 % (38.7-80.0); PLATELET COUNT 171 x10e3/uL (140-360); RED BLOOD COUNT 2.54 x10e6/uL (4.3-5.7); RED CELL DISTRIBUTION WIDTH 15.3 % (11.7-14.4)
[2018-08-16 06:25] LABS: ANION GAP 17.1 mmol/L (8-16); CALCIUM 7.6 mg/dL (8.4-10.2); CREATININE, SERUM 7.52 mg/dL (0.72-1.25); POTASSIUM 4.1 mmol/L (3.5-5.1)
[2018-08-16] MEDS: MEROPENEM 500MG/ NS 50ML 50 ML IV SCH (09:21)
[2018-08-16] MEDS ORDERED: SODIUM CHLORIDE 0.9% 250ML 250 ML ONE (09:27)
[2018-08-16] MEDS: SODIUM BICARBONATE 650 MG TAB PO SCH ×2 (09:50→16:40)
[2018-08-16] MEDS: SERTRALINE HCL 50 MG TAB PO SCH (09:50)
[2018-08-16] MEDS: LISINOPRIL 10 MG TAB PO SCH (09:50)
[2018-08-16] MEDS: BALSAM PERU/CASTOR OIL 60 GM OINT...G. TP SCH (09:50)
[2018-08-16] MEDS: ISOSORBIDE DINITRATE 20 MG TAB PO SCH ×3 (09:51→20:35)
[2018-08-16] MEDS: AMLODIPINE BESYLATE 10 MG TAB PO SCH (09:51)
[2018-08-16] MEDS: HYDRALAZINE HCL 25 MG TAB PO SCH (09:51)
[2018-08-16] MEDS: HEPARIN SOD (PORCINE) 5,000 UNIT/ML VIAL SC SCH ×2 (10:15→20:40)
[2018-08-16] MEDS: NIFEDIPINE CR 30 MG TAB PO SCH (10:16)
--- NOTE | 2018-08-16 10:37 | NUR ---
per , plans for tunneled HD cath placement tomorrow 08/17/18.
--- NOTE | 2018-08-16 10:59 | Progress Note ---
DATE: August 16, 2018 MEDICINE PROGRESS NOTE SUBJECTIVE: Patient is doing well today with no other issues. His hemoglobin was elevated after blood transfusions. He is currently on iron supplementation as well, IV. I discussed with him about his worsening renal function and he is agreeable to get hemodialysis. He reports that he has had this problem for years and he has been told even last month that he needs to start on dialysis and he was not ready, but at this time he currently ready for dialysis. PHYSICAL EXAMINATION VITAL SIGNS: Temperature is 98.5, pulse 99, respiratory rate is 20, and blood pressure is 167/77. GENERAL: Not in acute distress. Alert and oriented x3. Cooperative on examination. HEENT: Head is normocephalic and atraumatic. Eyes: Pupils equal, round and reactive to light bilaterally. Extraocular movements intact bilaterally. NECK: Supple. Good range of motion. Throat with no evidence of any erythema or exudates in the posterior pharynx. Has poor dentition. PULMONARY: Clear to auscultation bilaterally. No wheezing. No rales. No rhonchi. No crackles appreciated. CARDIOVASCULAR: Positive S1 and S2. No murmurs, rubs or gallops appreciated. ABDOMEN: Soft, nondistended and nontender to palpation. Bowel sounds present. MUSCULOSKELETAL: Strength is 5/5 throughout. No evidence of any muscle deficit on examination. No weakness appreciated. NEUROLOGICAL: Cranial nerves II through XII are grossly intact. No evidence of any neurological deficits on exam. SKIN: Intact. Warm to touch. Good cap refill. PSYCHIATRIC: Normal affect and mood. EXTREMITIES: No edema. Good range of motion throughout. LABS: Findings show white count 6.7, hemoglobin 10.4, on admission was 9.7, his hematocrit was 23, and platelets of 171. Coags were negative. Chemistry: Sodium 135, potassium 4.1, chloride 104, bicarb 18, anion gap 17, BUN 18, creatinine 7.5, glucose is 83. Lactic acid was normal. Urinalysis is negative. Urine drug screen negative. Flu is negative. Strep is negative. MICROBIOLOGY: Blood cultures, no growth today. Repeat blood cultures have been performed. Urine culture shows Klebsiella ESBL as well as pseudomonas. Throat cultures were negative. IMAGING STUDIES: Renal ultrasound consistent with left kidney of 7.1 cm and right kidney of 9 cm shows small echogenic kidneys and has evidence of medical renal disease. IMPRESSION 1. Chronic kidney disease stage 5 with uremic symptoms of nausea, vomiting and fatigue now, end-stage renal disease and agree to hemodialysis. 2. Iron deficiency anemia as well as anemia of chronic disease. 3. Dehydration. 4. Community-acquired pneumonia. 5. Fever. 6. Extended-spectrum beta-lactamases Escherichia coli urinary tract infection as well as pseudomonas. 7. Type 2 diabetes. 8. Hypertension. 9. Metabolic acidosis. PLAN: At this time, he has agreed to hemodialysis. IR has been consulted for tunnel dialysis catheter. We will begin his first treatment of dialysis tomorrow 2 hours and continue daily until he reaches 3 hours. Case management has been consulted for HD set up outpatient performed . He is making good urine output. We will discontinue the Ricci. His hemoglobin is 7.6. We will monitor that very closely. He is on iron infusion, which ferry captain is following him closely. He did develop ESBL E. coli UTI as well as pseudomonas sensitive to Merrem which he has been started on and which I will give also IV to consult it. In relation to his blood pressure being elevated, I am going to go ahead and adjust medication accordingly. His diabetes is managed and controlled. Otherwise, we will continue with same plan of care and monitor closely. Job#: [id number] [place]
--- NOTE | 2018-08-16 11:55 | NUR ---
SPOKE WITH PATIENT AFTER GOT ORDER TO SET UP DIALYSIS CHAIR. HE LIVES WITH SON LUNA [phone] WHOM IS ALSO HIS PROVIDER. HE HAS CHOOSEN [facility] FOR DIALYSIS AND WOULD LIKE , AND WEDNESDAY CHAIR DAYS IN MORNING IF POSSIBLE. STATES USES A WHEELCHAIR AND HAS A WHEELCHAIR ACCESSIBLE VAN THAT HE CAN GO TO APPOINTMENTS. SIGNED CHOICE FILED IN CHART.
--- NOTE | 2018-08-16 12:12 | NUR ---
FAXED CLINICALS AND PENDING LABS TO [facility] [phone]
--- NOTE | 2018-08-16 17:04 | Consultation ---
DATE OF CONSULTATION: REASON FOR CONSULTATION: Fevers, chills, recommendation for antibiotic. HISTORY OF PRESENT ILLNESS: This patient who is a 53-year-old male comes in with fever, chills, and cough 4 to 5 days. The patient does have history of hypertension, diabetes mellitus, chronic kidney disease stage 5, comes in with fever, chills, fatigue, cough, not feeling well. Patient was admitted. PAST MEDICAL HISTORY: Significant for hypertension, depression, chronic kidney disease, anemia, diabetes mellitus. PAST SURGICAL HISTORY: Denies. ALLERGIES: NKA. SOCIAL HISTORY: There is no smoking, drug abuse, or alcohol abuse. FAMILY HISTORY: Hypertension. HOME MEDICATIONS: He is on amlodipine, Dexilant, hydralazine, isosorbide, lisinopril. LABORATORY DATA: White count 8.2, came down to 6.7; hemoglobin 7.41; when he first came, it was 5.7; his platelets 171. Sodium 135, potassium 4.1, his creatinine is 7.52. Patient is currently on Procardia, heparin, Zoloft, meropenem. His urine showed ESBL. Blood culture was negative. PHYSICAL EXAMINATION GENERAL: He is currently alert, oriented. Does not seem to be in acute distress. VITALS: Stable. T-max 101.3. HEENT: He does not appear icteric. NECK: Supple. CHEST: Clear. COR: S1, S2. No S3, S4, or murmur. ABDOMEN: Soft. Bowel sounds present. EXTREMITIES: No edema. SKIN: No rash. IMPRESSION AND PLAN 1. Pyelonephritis in a patient with chronic kidney disease with multidrug-resistant pathogen. Agree with meropenem, he probably needs 14 days. Recheck blood cultures. Obtain CT of abdomen and pelvis, no contrast. 2. End-stage renal disease. 3. Diabetes mellitus type 2. 4. Hypertension. 5. Status post cerebrovascular accident. We will follow. Job#: [id number] [place]
--- NOTE | 2018-08-16 17:41 | Diagnostic Imaging Report ---
EXAM: CT Abdomen and Pelvis WITHOUT contrast COMPARISON: Chest radiograph 08/15/2018 and renal ultrasound 08/15/2018. TECHNIQUE: Abdomen and pelvis were scanned utilizing a multidetector helical scanner from the lung base to the pubic symphysis without administration of IV contrast. Absence of intravenous contrast decreases sensitivity for detection of focal lesions and vascular pathology. Coronal and sagittal reformations were obtained. Routine protocol was performed. RADIATION DOSE: Total DLP: 652.2 mGy*cm COMPLICATIONS: None FINDINGS: LINES and TUBES: None. LOWER THORAX: There are patchy groundglass and consolidative opacities as well as tree in bud opacities throughout the bilateral lower lobes and to a lesser extent the lingula. HEPATOBILIARY: No focal hepatic lesions. No biliary ductal dilation. Cholelithiasis without CT evidence of cholecystitis. SPLEEN: No splenomegaly. PANCREAS: No focal masses or ductal dilatation. ADRENALS: No adrenal nodules KIDNEYS/URETERS: Bilateral kidneys are atrophic in appearance. No hydronephrosis. No cystic or solid mass lesions. No stones. GI TRACT: No abnormal distention, wall thickening, or evidence of bowel obstruction. Appendix is normal. PELVIC ORGANS/BLADDER: The bladder is not well evaluated but appears diffusely thick-walled measuring up to 1.8 cm. LYMPH NODES: No lymphadenopathy. VESSELS: Extensive atherosclerotic calcifications of the abdominal aorta and branch vessels. PERITONEUM / RETROPERITONEUM: No free air or fluid. BONES AND SOFT TISSUES: No acute bony findings. Mild degenerative changes of the visualized spine. IMPRESSION: Incompletely evaluated diffusely thick-walled bladder which is thicker than expected despite partial decompression. Cystitis may be considered in the appropriate clinical setting. Correlation with urinalysis is suggested. If there is history of hematuria or suspicion for mass lesion, cystoscopy may be considered. Atropic bilateral kidneys, suggestive of medical renal disease. Patchy consolidative, ground glass and nodular opacities in the lower lobes and lingula, suspicious for pneumonia. Signed by: Dr. Ishmael Bennett MD on 08/16/2018 5:37 PM
--- NOTE | 2018-08-16 18:19 | NUR ---
pt lying in bed with eyes closed, Resp even and unlabored. call light within reach.
[2018-08-16] MEDS ORDERED: PEG (High)/E-LYTE SOLN 4,000 ML BTL PO STA (19:28)
--- NOTE | 2018-08-16 19:29 | NUR ---
PT IS RESTING IN BED. NO RESPIRATORY DISTRESS NOTED, BED IN THE LOWEST POSITION, LOCKED, AND CALL LIGHT WITHIN REACH. WILL CONTINUE TO MONITOR.
[2018-08-16] MEDS ORDERED: BISACODYL 5 MG TAB EC PO ONE ×2 (19:30→21:30)
[2018-08-16] MEDS: ACETAMINOPHEN 325 MG TAB PO PRN (20:39)
--- NOTE | 2018-08-16 20:48 | NUR ---
PT STARTED COLYTE. WILL CONTINUE TO MONITOR.
[2018-08-16] MEDS ORDERED: IRON SUCROSE 100 MG in SODIUM CHLORIDE 0.9% 100 ML 100 ML IV SCH (22:15)
--- NOTE | 2018-08-16 23:16 | NUR ---
PAGE DR Nisha CHAVIS IN REGARD TO VENOFER ORDER. PER DR CHAVIS VENOFER CAN BE GIVEN IN THE MORNING. WILL CONTINUE TO MONITOR.
[2018-08-17] VITALS (9 sets, daily range): BP systolic 137–168; BP diastolic 65–78
[2018-08-17] MEDS: ALBUTEROL SULF 0.083% NEB SOLN 3 ML NEB NEB SCH ×6 (03:05→22:35)
[2018-08-17] MEDS: IPRATROPIUM BROMIDE 0.02% 2.5 ML NEB NEB SCH ×4 (03:05→19:00)
[2018-08-17 05:30] LABS: BASOPHILS % 0.4 % (0.0-1.0); EOSINOPHILS # (AUTO) 0.2 (0.0-0.4); EOSINOPHILS % 2.2 % (0.0-6.0); HEMATOCRIT 23.2 % (38.2-49.6); LYMPHOCYTES # (AUTO) 0.7 (1.0-3.2); MEAN CORPUSCULAR HEMOGLOBIN 28.7 pg (28-32); MEAN CORPUSCULAR HGB CONC 31.9 g/dL (31-35); MEAN CORPUSCULAR VOLUME 89.9 fL (81-99); MONOCYTES # (AUTO) 0.6 (0.2-0.8); MONOCYTES % 6.7 % (4.4-11.3); NEUTROPHILS # (AUTO) 6.6 (2.1-6.9); NEUTROPHILS % 81.5 % (38.7-80.0); PLATELET COUNT 181 x10e3/uL (140-360); RED BLOOD COUNT 2.58 x10e6/uL (4.3-5.7); RED CELL DISTRIBUTION WIDTH 15.4 % (11.7-14.4)
[2018-08-17 05:44] LABS: HEMOGLOBIN 7.4 g/dL (14.0-18.0)
[2018-08-17 05:45] LABS: ANION GAP 19.9 mmol/L (8-16); CALCIUM 7.6 mg/dL (8.4-10.2); CREATININE, SERUM 7.99 mg/dL (0.72-1.25); POTASSIUM 3.9 mmol/L (3.5-5.1)
--- NOTE | 2018-08-17 06:35 | NUR ---
PAGE DR Nisha CHAVIS TO UPDATE HIM ON PT STATUS WITH CLEANSE FOR EGD AND COLONOSCOPY.
[2018-08-17] MEDS: IRON SUCROSE 100 MG in SODIUM CHLORIDE 0.9% 100 ML 100 ML IV SCH (06:55)
--- NOTE | 2018-08-17 07:09 | NUR ---
received pt lying in bed with eyes closed, resp even and unlabored. call light within reach. bed in lowest and locked position. bed alarm on.
[2018-08-17] MEDS: MEROPENEM 500MG/ NS 50ML 50 ML IV SCH (08:26)
[2018-08-17] MEDS: PANTOPRAZOLE SOD 40 MG TABEC PO SCH (08:26)
[2018-08-17] MEDS: LISINOPRIL 20 MG TAB PO SCH (08:27)
[2018-08-17] MEDS: NIFEDIPINE CR 30 MG TAB PO SCH (08:27)
[2018-08-17] MEDS: HEPARIN SOD (PORCINE) 5,000 UNIT/ML VIAL SC SCH ×2 (08:27→21:25)
[2018-08-17] MEDS: ISOSORBIDE DINITRATE 20 MG TAB PO SCH ×3 (08:27→21:25)
[2018-08-17] MEDS: SODIUM BICARBONATE 650 MG TAB PO SCH ×2 (08:27→17:11)
[2018-08-17] MEDS: SERTRALINE HCL 50 MG TAB PO SCH (08:27)
[2018-08-17] MEDS: BALSAM PERU/CASTOR OIL 60 GM OINT...G. TP SCH (08:27)
[2018-08-17] MEDS: HYDRALAZINE HCL 25 MG TAB PO SCH (08:27)
--- NOTE | 2018-08-17 09:37 | NUR ---
per , patient does not require emergency dialysis at this time and can have HD tunnelled cath placement tomorrow 08/18/18. IR aware.
--- NOTE | 2018-08-17 09:38 | NUR ---
spoke to in regards to patient unable to complete golytely as he has only consumed approx 1/3 of the gallon. received N.O for mg citrate and enema. also per MD will pursue EGD today even if unable to do colonsocopy and reschedule colonoscopy for later date.
[2018-08-17] MEDS ORDERED: LIDOCAINE HCL 1% LOCAL INJ 20 ML VIAL ONE (09:44)
[2018-08-17] MEDS ORDERED: FENTANYL CITRATE/PF 100MCG/2 ML INJ ONE (09:44)
[2018-08-17] MEDS ORDERED: SODIUM CHLORIDE 0.9% 500ML 0 ML ONE (09:44)
[2018-08-17] MEDS ORDERED: MIDAZOLAM HCL 2 MG/2 ML VIAL ONE (09:44)
[2018-08-17] MEDS ORDERED: SOD PHOSPHATE/SOD BIPHOSPHATE ENEMA 132 ML BTL PR NR (09:45)
[2018-08-17] MEDS ORDERED: CITRATE OF MAGNESIA 300ML BOTTLE PO NR (09:45)
--- NOTE | 2018-08-17 10:18 | Progress Note ---
DATE: August 17, 2018 MEDICINE PROGRESS NOTE SUBJECTIVE: Patient is doing well today. He was having bowel prep today, but seems to not have cleared bowels in order for him to have his colonoscopy today. Will have EGD today and get a colonoscopy tomorrow with a tunneled dialysis catheter tomorrow. Case management has been notified for an outpatient HD unit. OBJECTIVE VITAL SIGNS: Temperature is 97.9, pulse is 101, respiratory rate is 22, blood pressure 165/72, pulse ox is 97% on 2 L nasal cannula. GENERAL: Not in acute distress. Alert and oriented times 3. Cooperative on examination. HEENT: Head is normocephalic and atraumatic. Eyes: Pupils equal, round and reactive to light bilaterally. Extraocular movements intact bilaterally. NECK: Supple. Good range of motion. Throat with no evidence of any erythema or exudates in the posterior pharynx. Has poor dentition. PULMONARY: Clear to auscultation bilaterally. No wheezing. No rales. No rhonchi. No crackles appreciated. CARDIOVASCULAR: Positive S1 and S2. No murmurs, rubs or gallops appreciated. ABDOMEN: Soft, nondistended and nontender to palpation. Bowel sounds present. MUSCULOSKELETAL: Strength is 5/5 throughout. No evidence of any muscle deficit on examination. No weakness appreciated. NEUROLOGICAL: Cranial nerves II-XII are grossly intact. No evidence of any neurological deficits on exam. SKIN: Intact. Warm to touch. Good cap refill. PSYCHIATRIC: Normal affect and mood. EXTREMITIES: No edema. Good range of motion throughout. LAB FINDINGS: Show white count is 8.1, hemoglobin is 7.4, hematocrit is 23, and platelets of 181,000. Chemistry: Sodium 137, potassium 3.9, chloride 104, bicarb 17, anion gap of 19, BUN 96, creatinine is 7.99. Calcium 7.6. Urinalysis was negative. MICROBIOLOGY: Shows urine culture positive for klebsiella and pseudomonas. IMPRESSION 1. Chronic kidney disease, stage 5 with uremic symptoms, now end-stage renal disease: In the process of receiving dialysis. 2. Iron deficiency anemia: Also, anemia of chronic kidney disease. 3. Dehydration. 4. Community-acquired pneumonia. 5. Urinary tract infection with Escherichia coli and pseudomonas extended spectrum beta-lactamase. 6. Fever. 7. Type 2 diabetes. 8. Hypertension. 9. Metabolic acidosis. PLAN: At this time, dialysis catheter will be placed tomorrow. He will get an EGD today and colonoscopy tomorrow due to the fact that he did not have good clear bowels for colonoscopy today. GI is following closely. In relation to his iron deficiency anemia, hemoglobin is 7.4. Hematology is following closely. Will receive blood during dialysis hopefully tomorrow. Still treating the community-acquired pneumonia with negative blood cultures. In relation to his UTI, he is on IV antibiotics. Will need 14 days of IV Merrem according to ID's note. His blood pressure and diabetes is well managed and controlled. Continue with same plan of care. Job#: [id number] SOY
--- NOTE | 2018-08-17 13:35 | NUR ---
pt off unit for EGD
[2018-08-17] MEDS ORDERED: PROPOFOL IV EMULSION 10 MG/ML 50 ML VIAL ONE (14:12)
[2018-08-17] MEDS ORDERED: BENZOCAINE/TETRACAINE/BUTAMBEN AERO SPRAY 56 GM CAN ONE (14:23)
--- NOTE | 2018-08-17 15:28 | NUR ---
SPOKE WITH CLYDE ABOUT PT FROM [facility] SHE IS THE CM ASSIGNED TO PLACEMENT OF CHAIR FOR THIS PATIENT HER DIRECT NUMBER IS [phone], SHE WILL CALL BACK TO SEE IF PPRT IS INSTALLED AND HE IS ABLE OT START DIALYSIS HERE AT THIS FACILITY, WILL FAX UPDATES I GET THEM.
--- NOTE | 2018-08-17 15:40 | NUR ---
pt returned from procedure. per recovery nurse report, findings in EGD as follows: mild esophagitis, distal hernia, and gastritis. pt transferred from stretcher to bed. denies pain. drowsy but responds to voice. call light placed within reach. bed in low and locked position. bed alarm on.
--- NOTE | 2018-08-17 16:04 | Operative Report ---
DATE OF PROCEDURE: August 17, 2018 REFERRING PHYSICIAN: Dr. Eleonora Mendenhall. PROCEDURE PERFORMED: Esophagogastroduodenoscopy with biopsies. INDICATIONS FOR PROCEDURE: Anemia, nausea and vomiting. MEDICATION: Patient was done under MAC. Please see anesthesiologist's note. PROCEDURE: With the patient in the left lateral decubitus position, the flexible fiberoptic Olympus gastroscope was introduced into the esophagus under direct visualization without any difficulty. There was some patchy erythema noted in the distal esophagus. The scope was then advanced with ease into the stomach, traversing a small hiatal hernia. Mucosa overlying the antrum and the body revealed some patchy erythema and low-grade edema, and biopsies were obtained and sent to stain for H. pylori. There was an approximately 4 mm nodule distal body posterior wall, and that was biopsied. There continues some minimal but persistent bleeding post biopsy, and site was hemoclipped with excellent hemostasis. The pylorus was of normal contour and shape, was intubated with ease, and the scope was advanced all the way to the 2nd portion of the duodenum. The scope was then withdrawn slowly. Mucosa overlying the proximal 2nd portion and the duodenal bulb appeared to be within normal limits. The scope was then withdrawn back into the stomach and retroflexed, and the mucosa overlying the fundus and the cardia appeared to be within normal limits. The scope was then straightened out. It was subsequently withdrawn. Patient tolerated procedure well. IMPRESSION: 1. Mild distal esophagitis. 2. Small hiatal hernia. 3. Gastritis biopsied. Biopsies sent to stain for H. pylori. 4. Approximately 4 mm nodule distal body posterior wall biopsied and site hemoclipped. PLAN: Follow up histology. Initiate Protonix 40 mg 1 p.o. q.a.m. a.c. Findings do not necessarily explain patient's anemia. Patient will need a colonoscopy. Job#: [id number] EV cc:ELEONORA MENDENHALL MD
[2018-08-17] MEDS ORDERED: EPOETIN ALFA 10000 UNIT/ML VIAL SC ONE (18:15)
--- NOTE | 2018-08-17 19:29 | NUR ---
PT IS RESTING IN BED. NO RESPIRATORY DISTRESS NOTED, BED IN THE LOWEST POSITION, LOCKED, AND CALL LIGHT WITHIN REACH. WILL CONTINUE TO MONITOR.
--- NOTE | 2018-08-17 19:38 | NUR ---
walking rounds done with oncoming nurse. call light within reach.
[2018-08-18] VITALS (8 sets, daily range): BP systolic 135–193; BP diastolic 61–87
[2018-08-18] MEDS: IPRATROPIUM BROMIDE 0.02% 2.5 ML NEB NEB SCH ×4 (01:35→19:20)
[2018-08-18] MEDS: ALBUTEROL SULF 0.083% NEB SOLN 3 ML NEB NEB SCH ×6 (01:35→22:30)
[2018-08-18 06:01] LABS: BASOPHILS # (AUTO) 0.1 (0.0-0.1); BASOPHILS % 0.6 % (0.0-1.0); EOSINOPHILS # (AUTO) 0.2 (0.0-0.4); EOSINOPHILS % 2.2 % (0.0-6.0); HEMATOCRIT 24.8 % (38.2-49.6); LYMPHOCYTES # (AUTO) 0.5 (1.0-3.2); LYMPHOCYTES % 5.8 % (18.0-39.1); MEAN CORPUSCULAR HEMOGLOBIN 29.6 pg (28-32); MEAN CORPUSCULAR HGB CONC 32.3 g/dL (31-35); MEAN CORPUSCULAR VOLUME 91.9 fL (81-99); MONOCYTES # (AUTO) 0.5 (0.2-0.8); MONOCYTES % 5.1 % (4.4-11.3); NEUTROPHILS # (AUTO) 7.7 (2.1-6.9); NEUTROPHILS % 84.8 % (38.7-80.0); PLATELET COUNT 208 x10e3/uL (140-360); RED CELL DISTRIBUTION WIDTH 15.2 % (11.7-14.4)
[2018-08-18 06:24] LABS: ANION GAP 17.9 mmol/L (8-16); CALCIUM 8.2 mg/dL (8.4-10.2); CREATININE, SERUM 7.6 mg/dL (0.72-1.25); POTASSIUM 3.9 mmol/L (3.5-5.1)
[2018-08-18 06:47] LABS: BAND NEUTROPHILS % (MANUAL) 4 %; EOSINOPHILS % (MANUAL) 2 % (0-7); LYMPHOCYTES % (MANUAL) 5 % (19-48); MONOCYTES % (MANUAL) 8 % (3.4-9.0); NEUTROPHILS % (MANUAL) 81 % (40-74)
[2018-08-18 06:48] LABS: ANISOCYTOSIS S; PLATELET ESTIMATE ADEQUATE; PLATELET MORPHOLOGY COMMENT NORMAL; POIKILOCYTOSIS S; RBC MORPHOLOGY COMMENT NORMAL
[2018-08-18] MEDS: PANTOPRAZOLE SOD 40 MG TABEC PO SCH (07:30)
[2018-08-18] MEDS: ISOSORBIDE DINITRATE 20 MG TAB PO SCH ×3 (08:53→21:50)
[2018-08-18] MEDS: HYDRALAZINE HCL 25 MG TAB PO SCH (08:53)
[2018-08-18] MEDS: LISINOPRIL 20 MG TAB PO SCH (08:53)
[2018-08-18] MEDS: NIFEDIPINE CR 30 MG TAB PO SCH (08:53)
[2018-08-18] MEDS: MEROPENEM 500MG/ NS 50ML 50 ML IV SCH (08:53)
[2018-08-18] MEDS: SODIUM BICARBONATE 650 MG TAB PO SCH ×2 (08:53→16:55)
[2018-08-18] MEDS: BALSAM PERU/CASTOR OIL 60 GM OINT...G. TP SCH (08:54)
[2018-08-18] MEDS: HEPARIN SOD (PORCINE) 5,000 UNIT/ML VIAL SC SCH ×2 (08:54→21:50)
[2018-08-18] MEDS: SERTRALINE HCL 50 MG TAB PO SCH (08:54)
[2018-08-18] MEDS: IRON SUCROSE 100 MG in SODIUM CHLORIDE 0.9% 100 ML 100 ML IV SCH (09:05)
[2018-08-18] MEDS ORDERED: SODIUM CHLORIDE 0.9% 500ML 1,000 ML ONE (09:33)
[2018-08-18] MEDS ORDERED: MIDAZOLAM HCL 2 MG/2 ML VIAL ONE (09:33)
[2018-08-18] MEDS ORDERED: FENTANYL CITRATE/PF 100MCG/2 ML INJ ONE (09:33)
[2018-08-18] MEDS ORDERED: LIDOCAINE HCL 1% LOCAL INJ 20 ML VIAL ONE (09:33)
--- NOTE | 2018-08-18 10:55 | NUR ---
Patient back from procedure, Alert with no distress, Rt side tunneled HD catheter placement site is intact with dressing, patient denies any SOB or pain, keep monitoring, Dr Norwood had rounds with patient
--- NOTE | 2018-08-18 12:40 | Progress Note ---
DATE: August 18, 2018 MEDICINE PROGRESS NOTE SUBJECTIVE: Patient is doing well today with no complaints. Underwent EGD yesterday. Will undergo colonoscopy today. Will also get him a tunneled catheter today. EGD showed mild distal esophagitis with gastritis, and biopsies were performed. OBJECTIVE VITAL SIGNS: Temperature is 97.3, pulse 98, respiratory rate 20, blood pressure 167/73, pulse ox 97% on 3 L nasal cannula. LAB FINDINGS: White count 9, hemoglobin 8, hematocrit 24.8, platelets 208. Chemistry: Sodium 137, potassium 3.9, chloride 105, bicarb 18, anion gap 17, BUN 92, creatinine 7.6, calcium 8.2. Urinalysis was found to be negative. Toxicology screen negative. MICROBIOLOGY: Urine culture consisted of klebsiella ESBL and pseudomonas. Blood cultures were negative. PHYSICAL EXAMINATION GENERAL: Not in acute distress. Alert and oriented x3. Cooperative on examination. HEENT: Head is normocephalic and atraumatic. Eyes: Pupils equal, round and reactive to light bilaterally. Extraocular movements intact bilaterally. NECK: Supple. Good range of motion. Throat with no evidence of any erythema or exudates in the posterior pharynx. Has poor dentition. PULMONARY: Clear to auscultation bilaterally. No wheezing. No rales. No rhonchi. No crackles appreciated. CARDIOVASCULAR: Positive S1 and S2. No murmurs, rubs or gallops appreciated. ABDOMEN: Soft, nondistended and nontender to palpation. Bowel sounds present. MUSCULOSKELETAL: Strength is 5/5 throughout. No evidence of any muscle deficit on examination. No weakness appreciated. NEUROLOGICAL: Cranial nerves II through XII are grossly intact. No evidence of any neurological deficit on exam. SKIN: Intact. Warm to touch. Good cap refill. PSYCHIATRIC: Normal affect and mood. EXTREMITIES: No edema. Good range of motion throughout. IMPRESSION 1. Chronic kidney disease, stage 5, with uremic symptoms, now end-stage renal disease on hemodialysis, now receiving tunneled dialysis catheter. 2. Iron deficiency anemia. 3. Dehydration. 4. Community-acquired pneumonia. 5. Urinary tract infection with Escherichia coli and pseudomonas extended spectrum beta-lactamase. 6. Fever. 7. Type-2 diabetes. 8. Hypertension. 9. Metabolic acidosis. PLAN: EGD was performed yesterday with evidence of gastritis and esophagitis. Colonoscopy will be performed today. He will undergo tunneled dialysis catheter today. He may get dialysis later today if he is back in time. Resume same home medications. Continue with IV antibiotics for another 13 more days of IV Merrem per ID recommendations. Otherwise, continue with same plan of care and get a.m. labs. Job#: [id number]
--- NOTE | 2018-08-18 12:43 | Diagnostic Imaging Report ---
PROCEDURE: PLACEMENT OF RIGHT IJ TUNNELED HEMODIALYSIS CATHETER WITH FLUOROSCOPIC GUIDANCE INDICATION: Need for dialysis. OPERATORS: Ishmael Bennett MD RADIATION EXPOSURE: Fluoroscopy Time: 1 minutes Dose area product (DAP): 233.5 cGycm2 CONSENT: The patient was informed of the nature of the proposed procedure. The purposes, alternatives, risks, and benefits were explained and discussed. All questions were answered and written consent was obtained. ANESTHESIA: Conscious sedation administered by interventional nursing. Continuous hemodynamic monitoring was performed. MEDICATIONS: 15 cc of 1% subcutaneous lidocaine IV Fentanyl 50 mcg and Versed 1 mg per nursing administration records TECHNIQUE: The patient was brought to the angiography suite, and the right neck and upper chest were prepped and draped in standard sterile fashion. All elements of maximal sterile barrier technique were followed including cap and mask, sterile gown, sterile gloves, large sterile sheet, hand hygiene and 2% chlorhexidine for cutaneous antisepsis. Pre-procedure time-out confirmed the patient identity and the procedure to be performed. Using standard sterile technique, 1 % lidocaine was administered subcutaneously for local anesthesia. Ultrasound demonstrated that the right internal jugular was patent and compressible. Under continuous sonographic guidance, the right internal jugular vein was accessed using a 21 G micropuncture needle. The access needle was exchanged for a 5 Fr micropuncture sheath. An 0.035'' Amplatz wire was advanced into the IVC to secure access. The venotomy site was dilated. Appropriate measurements were made using the 8 Fr dilator. Attention was then turned towards the subcutaneous tunnel. After administration of 1% lidocaine subcutaneously for local anesthesia, a 16 Fr x 19 cm Hemosplit hemodialysis catheter was tunneled in an antegrade direction from skin exit site to venotomy site. The dilator was exchanged for the peel-away sheath under direct fluoroscopic visualization. The catheter was then advanced through the peel-away sheath into the superior vena cava. After confirming appropriate position with fluoroscopy the catheter tip in the right atrium, the peel-away sheath was removed, and both lumens aspirated, check flushed, and terminally flushed with 2 cc each of heparin solution (1000 units/cc of heparin). The catheter was secured using 3-0 Ethilon pursestring suture at the catheter exit site and also 3-0 Ethilon sutures at the catheter hub. The venotomy site was closed with a single subcutaneous Vicryl suture, Dermabond, and steri-strips. Sterile dressings were applied. The patient tolerated the procedure well without immediate complication and was transported back to the floor in stable condition. FINDINGS: 1. Patent and compressible right IJV accessed with continuous ultrasound guidance. 2. Placement of 16 Fr x 19 cm tunneled right IJV hemodialysis catheter. 3. Post-procedure intraprocedural chest radiograph showed the catheter tip in the proximal right atrium, no kinks along course of catheter, and no pneumothorax. Catheter is ready for use. IMPRESSION: Placement of right IJ tunneled hemodialysis catheter. Catheter is ready for immediate use. Signed by: Dr. Ishmael Bennett MD on 08/18/2018 12:39 PM
--- NOTE | 2018-08-18 14:20 | NUR ---
Clarified Colonoscopy order with Dr Jh Osborne, he stated , its not on schedule until patient had 2-3 dialysis, new order recvd to put patient on Renal diabetic diet
--- NOTE | 2018-08-18 14:25 | NUR ---
Nutrition Intervention Note RD Recommendation(s) for Physician: -Continue renal diet as ordered -Rec MVi with minerals and vitamin C for wound healing -Rec 1 pkt Beneprotein w every meal to promote protein intake for HD and wound healing -Rec probiotics for gut health Plan of Care: RD following, monitoring for tolerance and adequacy Nutrition reason for involvement: Stage II wound RD Assessment 08/18 Chart reviewed. 53yo M, who is admitted with complaints of generalized weakness, fatigue and not feeling well. Pt is new on HD. Visited pt in the room. Pt reports good appetite with 75-100% recorded meal intake. No GI complains noted. LBM 08/18. Pt denies any chewing or swallowing difficulty. 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 Pending colonoscopy. HD is planned for tomorrow. Pt had dialysis catheter placed today and appeared to be very lethargic. RD will return for diet education. Will continue to monitor and follow. Principal Problems/Diagnoses: 1. Chronic kidney disease, stage 5, with uremic symptoms, now end-stage renal disease on hemodialysis, now receiving tunneled dialysis catheter. 2. Iron deficiency anemia. 3. Dehydration. 4. Community-acquired pneumonia. 5. Urinary tract infection. PMH: hypertension, type-2 diabetes uncontrolled and also underlying CKD, stage 5 GI: liquid brown stool 08/18 Skin: Left Gluteal - Stage II, per wound care notes Labs: (08/18) BUN 92 H, Creatinine 7.6 H, Ca 8.2 L Meds: reviewed Ht: 66in Wt: 199lb BMI: 32.1 kg/m2 IBW: 142lb Malnutrition Evaluation (08/18/2017) The patient does not meet criteria for a specified degree of malnutrition at this time. Will re-evaluate at follow-up as appropriate. Nutrition Prescription (Diet Order):renal diabetic diet Diet Adequacy: Meeting calorie needs, Not meeting protein needs Diet Education Needs Assessment: Diet education indicated, but patient not appropriate for education at this time. Nutrition Care Level: low Nutrition Diagnosis: Increased protein needs related to altered skin integrity and ESRD as evidenced by stage II pressure wound and on dialysis. Goal: Patient will meet 75-100% of estimated needs by follow up Progress: Progressing Interventions: Mineral/ carbohydrate modified diet, Commercial food, Multivitamin/mineral supplement therapy Monitoring/Evaluation: Total energy intake, Total protein intake, Modified diet, supplement, Weight change Signed: Mona Ornelas, , RD, LD
--- NOTE | 2018-08-18 16:21 | NUR ---
spoke to Hayley (hairspring setter) Rita to schedule dialysis, she said she will notify nurse and they call Dr Norwood for orders.
[2018-08-18] MEDS: HYDRALAZINE HCL 20 MG/ML VIAL IV PRN (21:50)
[2018-08-19] VITALS: BP 163/80
--- NOTE | 2018-08-19 01:00 | NUR ---
Dr Osborne went to examine patient and upon assessment, he noticed the patient had bladder distention and upon palpation patient reported a slight discomfort. Dr Osborne order me to scan his bladder and to put in a catheter in if the patient needed it. The scanner detected 810cc's of urine. There was already an order placed on 08/14/[address] toney on the order history, so I did not place a new one. I explained patient the procedure and placed an indwelling Ricci catheter and I got 1500cc of light yellow urine.
[2018-08-19] MEDS: HYDRALAZINE HCL 20 MG/ML VIAL IV PRN (01:57)
[2018-08-19] MEDS: ALBUTEROL SULF 0.083% NEB SOLN 3 ML NEB NEB SCH ×6 (02:40→22:57)
[2018-08-19] MEDS: IPRATROPIUM BROMIDE 0.02% 2.5 ML NEB NEB SCH ×4 (02:40→19:23)
[2018-08-19 04:00] VITALS: BP 175/79
[2018-08-19 05:33] LABS: BASOPHILS % 0.3 % (0.0-1.0); EOSINOPHILS # (AUTO) 0.4 (0.0-0.4); EOSINOPHILS % 3.9 % (0.0-6.0); HEMATOCRIT 24.4 % (38.2-49.6); LYMPHOCYTES # (AUTO) 0.5 (1.0-3.2); LYMPHOCYTES % 5.7 % (18.0-39.1); MEAN CORPUSCULAR HEMOGLOBIN 29.6 pg (28-32); MEAN CORPUSCULAR HGB CONC 32.8 g/dL (31-35); MEAN CORPUSCULAR VOLUME 90.4 fL (81-99); MONOCYTES # (AUTO) 0.6 (0.2-0.8); MONOCYTES % 6.3 % (4.4-11.3); NEUTROPHILS # (AUTO) 7.5 (2.1-6.9); PLATELET COUNT 246 x10e3/uL (140-360); RED CELL DISTRIBUTION WIDTH 14.9 % (11.7-14.4)
[2018-08-19 05:48] LABS: ANION GAP 18.9 mmol/L (8-16); CALCIUM 8.2 mg/dL (8.4-10.2); CREATININE, SERUM 6.86 mg/dL (0.72-1.25); POTASSIUM 3.9 mmol/L (3.5-5.1)
[2018-08-19 06:32] LABS: EOSINOPHILS % (MANUAL) 9 % (0-7); LYMPHOCYTES % (MANUAL) 10 % (19-48); MONOCYTES % (MANUAL) 8 % (3.4-9.0); NEUTROPHILS % (MANUAL) 73 % (40-74)
[2018-08-19 06:33] LABS: ANISOCYTOSIS S; PLATELET ESTIMATE ADEQUATE; PLATELET MORPHOLOGY COMMENT NORMAL; POIKILOCYTOSIS S; RBC MORPHOLOGY COMMENT NORMAL
--- NOTE | 2018-08-19 07:25 | NUR ---
PT IN BED RESTING NO S/S DISCOMFORT.
[2018-08-19] MEDS: ALBUTEROL/IPRATROPIUM 3 ML NEB NEB PRN ×2 (07:32→15:29)
[2018-08-19 08:00] VITALS: BP 183/83
[2018-08-19] MEDS: HEPARIN SOD (PORCINE) 5,000 UNIT/ML VIAL SC SCH ×2 (08:25→21:49)
[2018-08-19] MEDS: ISOSORBIDE DINITRATE 20 MG TAB PO SCH ×3 (08:25→21:47)
[2018-08-19] MEDS: HYDRALAZINE HCL 25 MG TAB PO SCH (08:25)
[2018-08-19] MEDS: SERTRALINE HCL 50 MG TAB PO SCH (08:25)
[2018-08-19] MEDS: SODIUM BICARBONATE 650 MG TAB PO SCH ×2 (08:25→17:00)
[2018-08-19] MEDS: NIFEDIPINE CR 30 MG TAB PO SCH (08:25)
[2018-08-19] MEDS: PANTOPRAZOLE SOD 40 MG TABEC PO SCH (08:30)
[2018-08-19] MEDS: LISINOPRIL 20 MG TAB PO SCH (09:00)
[2018-08-19] MEDS: MEROPENEM 500MG/ NS 50ML 50 ML IV SCH (09:00)
[2018-08-19] MEDS ORDERED: MANNITOL 25% 12.5GM/50 ML VIAL IV PRN (10:45)
[2018-08-19] MEDS ORDERED: SODIUM CHLORIDE 0.9% 1000ML 2,000 ML IV PRN (10:45)
--- NOTE | 2018-08-19 10:54 | NUR ---
DIALYSIS NURSE HERE UNABLE TO DIALYSIS DUE TO CATHETER NOT WORKING.ORDER S [facility]O IR TO CHECK CATHETER
[2018-08-19] MEDS ORDERED: IOPAMIDOL 300MG/ML 100 ML INFUS..BTL IV ONE (11:52)
--- NOTE | 2018-08-19 12:55 | NUR ---
SPOKE WITH CLYDE FROM [facility] SHE STATES SHE NEEDS HEP PANEL, CHEST XRAY RENAL DX FAXED FOR UPDATES, LABS ARE STILL PENDING. CALLED AND SPOKE WITH DI WHOM STATES THAT THERE WAS NOT ENOUGH SAMPLE AND THEY HAD TO REDO SOME OF THE TEST. SHE STATES THEY REST SHOULD BE READY TOMORROW. FAXED WHAT I HAVE TO [phone]
--- NOTE | 2018-08-19 12:56 | Progress Note ---
DATE: August 19, 2018 MEDICINE PROGRESS NOTE SUBJECTIVE: Patient is doing well today with no other issues. He is having problems with dialysis due to his newly placed catheter. Discussed with nursing staff, and they will try to have IR evaluate this later today. OBJECTIVE VITAL SIGNS: Temperature is 96.5, pulse 108, respiratory rate 22, blood pressure 183/83. Pulse ox is 96% on room air. LABS: White count 9.3, hemoglobin 8, hematocrit 24.4, platelets 246. Coagulations were normal. Chemistry: Sodium 139, potassium 3.9, chloride 107, bicarb 17, BUN 90, creatinine 6.8. Urinalysis is negative. Urine culture consists of ESBL klebsiella and pseudomonas. IMAGING STUDIES: None recently. PHYSICAL EXAMINATION GENERAL: Not in acute distress. Alert and oriented x3. Cooperative on examination. HEENT: Head is normocephalic and atraumatic. Eyes: Pupils equal, round and reactive to light bilaterally. Extraocular movements intact bilaterally. NECK: Supple. Good range of motion. Throat with no evidence of any erythema or exudates in the posterior pharynx. Has poor dentition. PULMONARY: Clear to auscultation bilaterally. No wheezing. No rales. No rhonchi. No crackles appreciated. CARDIOVASCULAR: Positive S1 and S2. No murmurs, rubs or gallops appreciated. ABDOMEN: Soft, nondistended and nontender to palpation. Bowel sounds present. MUSCULOSKELETAL: Strength is 5/5 throughout. No evidence of any musculoskeletal deficit on examination. No weakness appreciated. NEUROLOGICAL: Cranial nerves II through XII are grossly intact. No evidence of any neurological deficit on exam. SKIN: Intact. Warm to touch. Good cap refill. PSYCHIATRIC: Normal affect and mood. EXTREMITIES: No edema. Good range of motion throughout. IMPRESSION 1. End-stage renal disease on hemodialysis now with a tunneled dialysis catheter malfunctioning. 2. Iron deficiency anemia. 3. Dehydration. 4. Community-acquired pneumonia. 5. Urinary tract infection with Escherichia coli extended spectrum beta lactamase as well as pseudomonas. 6. Fever. 7. Type-2 diabetes. 8. Hypertension. 9. Metabolic acidosis. 10. Gastritis and esophagitis. PLAN: Continue with Protonix and PPI per GI's recommendations. IV antibiotics. ID is following cultures as well. Still pending outpatient HD unit. His catheter is also malfunctioning which we will have IR come and evaluate for further recommendations. I discussed this with the dialysis team as well. The patient will likely need dialysis tomorrow. Job#: [id number]
--- NOTE | 2018-08-19 13:52 | Diagnostic Imaging Report ---
Exam: Injection of both ports of the recently placed hemodialysis catheter utilizing fluoroscopy. History: Catheter placed one day prior with difficulty at dialysis. Comparison: 08/18/2018 catheter placement. Findings: Each port is noted to aspirate and flush freely with saline. Contrast injection with fluoroscopy of the red and blue port shows no evidence of obstruction with free flow into the atrium. Fluoroscopy time: 0.3 minutes Total dose: 5.51 mGy Impression: Adequate position and function of a recently placed HD catheter. Signed by: Dr. Christophe Montalvo DO on 08/19/2018 1:48 PM
[2018-08-19 16:00] VITALS: BP 159/70
[2018-08-19] MEDS: BALSAM PERU/CASTOR OIL 60 GM OINT...G. TP SCH (16:01)
[2018-08-19 20:00] VITALS: BP 141/65
--- NOTE | 2018-08-19 21:39 | NUR ---
RECEIVED PT SITTING ON THE W/C.R.RESPIRATIONS ARE EVEN AND UNLABORED .HELPED THE PT TO TRANSFER TO BED ..TELE [id number] .STAGE 1 SACRUM.PT HAS F/C DRAINING CLEAR URINE .CALL LIGHT WITH IN REACH .CONTINUE TO MONITOR
[2018-08-20] VITALS: BP 153/68
[2018-08-20] MEDS: ALBUTEROL SULF 0.083% NEB SOLN 3 ML NEB NEB SCH ×6 (02:20→23:35)
[2018-08-20] MEDS: IPRATROPIUM BROMIDE 0.02% 2.5 ML NEB NEB SCH ×4 (02:20→19:35)
[2018-08-20 05:17] VITALS: BP 161/72
--- NOTE | 2018-08-20 06:34 | NUR ---
PT RESTED DURING THE NIGHT .DENIES PAIN .DR CHAVIS HAVE SEEN THE PT .CALL LIGHT WITH IN REACH .CONTINUE TO MONITOR
--- NOTE | 2018-08-20 07:11 | NUR ---
REPORT GIVEN TO THE ONCOMING NURSE.
--- NOTE | 2018-08-20 07:30 | NUR ---
PT SLEEPING ,NO DISTRESS NOTED,TELE IN PLACE SR
[2018-08-20 08:00] VITALS: BP 182/82
[2018-08-20] MEDS: PANTOPRAZOLE SOD 40 MG TABEC PO SCH (08:30)
[2018-08-20] MEDS: HEPARIN SOD (PORCINE) 5,000 UNIT/ML VIAL SC SCH ×2 (09:00→22:47)
[2018-08-20] MEDS: SERTRALINE HCL 50 MG TAB PO SCH (09:00)
[2018-08-20] MEDS: HYDRALAZINE HCL 25 MG TAB PO SCH (09:00)
[2018-08-20] MEDS: ISOSORBIDE DINITRATE 20 MG TAB PO SCH ×3 (09:00→21:00)
[2018-08-20] MEDS: MEROPENEM 500MG/ NS 50ML 50 ML IV SCH (09:00)
[2018-08-20] MEDS: LISINOPRIL 20 MG TAB PO SCH (09:00)
[2018-08-20] MEDS: NIFEDIPINE CR 30 MG TAB PO SCH (09:00)
[2018-08-20] MEDS: SODIUM BICARBONATE 650 MG TAB PO SCH ×2 (09:00→17:00)
--- NOTE | 2018-08-20 11:05 | NUR ---
Visit made by the Spiritual Care Department Pastoral Visitor, Edilia Ariza. PV provided pastoral presence, prayer, hospitality, and supportive listening. Pastoral Visitor informed pt/family of the scope of [facility] and availability. AINSLEY HERZOG [employer] Fashioned Garment Knitter Spiritual Care Department O: [phone] Pager: [phone] ([phone] number calling from)
[2018-08-20 12:00] VITALS: BP 179/79
--- NOTE | 2018-08-20 12:30 | NUR ---
PHYSICAL THERAPY HERE ,ASSISTED PT UP TO CHAIR TOLERATED WELL.
--- NOTE | 2018-08-20 12:59 | Progress Note ---
DATE: August 20, 2018 MEDICINE PROGRESS NOTE SUBJECTIVE: The patient is doing well today with no other complaints. He is taken for hemodialysis later today. It is his first treatment. PHYSICAL EXAMINATION VITAL SIGNS: Temperature is 96.0, pulse of 84, respiratory rate is 20, blood pressure is 182/80, no significant change, pulse ox 96% on 1 liter nasal cannula. GENERAL: In no acute distress. Alert and oriented x3. Cooperative on examination. HEENT: Head is normocephalic and atraumatic. Eyes: Pupils equal, round and reactive to light bilaterally. Extraocular movements intact bilaterally. NECK: Supple. Good range of motion. Throat with no evidence of any erythema or exudates in the posterior pharynx. Has poor dentition. PULMONARY: Clear to auscultation bilaterally. No wheezing. No rales. No rhonchi. No crackles appreciated. CARDIOVASCULAR: Positive S1 and S2. No murmurs, rubs or gallops appreciated. ABDOMEN: Soft, nondistended and nontender to palpation. Bowel sounds present. MUSCULOSKELETAL: Strength is 5/5 throughout. No evidence of any muscle deficit on examination. No weakness appreciated. NEUROLOGICAL: Cranial nerves II through XII are grossly intact. No evidence of any neurological deficits on exam. SKIN: Intact. Warm to touch. Good cap refill. PSYCHIATRIC: Normal affect and mood. EXTREMITIES: He has no edema. Good range of motion throughout. LABORATORY FINDINGS: White count is 9.3, hemoglobin is 8, hematocrit is 24, platelets of 246,000. Coagulation; PT 69, INR 1.2, PTT 47. Chemistries; sodium 139, potassium 3.9, chloride is 107, bicarb 17, anion gap of 89, BUN 90, creatinine is 6.8. Urinalysis negative. Urine drug screen negative. ASSESSMENT AND PLAN 1. End-stage renal disease on hemodialysis with a tunneled dialysis catheter that was malfunctioning, now improved. 2. Iron deficiency anemia. 3. Dehydration. 4. Community acquired pneumonia. 5. Urinary tract infection Escherichia coli, extended-spectrum beta-lactamases, as well as pseudomonas. 6. Fever. 7. Type 2 diabetes. 8. Hypertension. 9. Metabolic acidosis secondary to renal failure. 10. Gastritis and esophagitis. PLAN: He will be on PPI twice a day per GI recommendations. He is also on IV antibiotic for underlying UTI which ID is following. We are awaiting for an outpatient dialysis unit. He will receive his first treatment today. His catheter is malfunctioning according to the reports. He will get his second treatment of dialysis tomorrow. We will also repeat . Job#: [id number] CHINYERE
[2018-08-20 16:00] VITALS: BP 176/79
--- NOTE | 2018-08-20 17:00 | NUR ---
PT DIALYSIS STARTED,DENIES PAIN
[2018-08-20] MEDS ORDERED: HEPARIN SOD (PORCINE) 1000 UNIT/ML SDV IV PRN (18:00)
[2018-08-20] MEDS: BALSAM PERU/CASTOR OIL 60 GM OINT...G. TP SCH (18:23)
[2018-08-20 20:00] VITALS: BP 174/79
[2018-08-20] MEDS ORDERED: LISINOPRIL 20 MG TAB PO ONE (22:30)
--- NOTE | 2018-08-20 22:54 | NUR ---
Patient laying in bed with HOB slightly elevated. AAO x 4. Patient reports of pain 0/10. No SOB noted. No acute distress noted. Bed at low position and locked. Call light within reach, reminded patient to utilize when assistance is needed, patient voiced understanding. Patient in stable condition and will continue to monitor.
[2018-08-20] MEDS: HYDRALAZINE HCL 20 MG/ML VIAL IV PRN (23:27)
[2018-08-21 01:26] VITALS: BP 178/75
[2018-08-21] MEDS: IPRATROPIUM BROMIDE 0.02% 2.5 ML NEB NEB SCH ×4 (03:08→19:38)
[2018-08-21] MEDS: ALBUTEROL SULF 0.083% NEB SOLN 3 ML NEB NEB SCH ×5 (03:08→19:38)
[2018-08-21 04:00] VITALS: BP 185/80
[2018-08-21 06:47] LABS: BASOPHILS % 0.6 % (0.0-1.0); EOSINOPHILS # (AUTO) 0.6 (0.0-0.4); EOSINOPHILS % 8.2 % (0.0-6.0); HEMATOCRIT 25.1 % (38.2-49.6); LYMPHOCYTES # (AUTO) 0.7 (1.0-3.2); LYMPHOCYTES % 9.8 % (18.0-39.1); MEAN CORPUSCULAR HEMOGLOBIN 29.1 pg (28-32); MEAN CORPUSCULAR HGB CONC 31.9 g/dL (31-35); MEAN CORPUSCULAR VOLUME 91.3 fL (81-99); MONOCYTES # (AUTO) 0.5 (0.2-0.8); MONOCYTES % 7.6 % (4.4-11.3); NEUTROPHILS # (AUTO) 4.7 (2.1-6.9); NEUTROPHILS % 68.9 % (38.7-80.0); PLATELET COUNT 272 x10e3/uL (140-360); RED BLOOD COUNT 2.75 x10e6/uL (4.3-5.7); RED CELL DISTRIBUTION WIDTH 14.8 % (11.7-14.4)
[2018-08-21 07:08] LABS: ANION GAP 13.6 mmol/L (8-16); CALCIUM 8.3 mg/dL (8.4-10.2); CREATININE, SERUM 4.23 mg/dL (0.72-1.25); POTASSIUM 3.6 mmol/L (3.5-5.1)
--- NOTE | 2018-08-21 07:35 | NUR ---
PT IN BED SLEEPING NO DISTRESS NTOED,
[2018-08-21 07:52] VITALS: BP 186/85
[2018-08-21] MEDS: SODIUM BICARBONATE 650 MG TAB PO SCH ×2 (08:15→17:04)
[2018-08-21] MEDS: LISINOPRIL 20 MG TAB PO SCH (08:15)
[2018-08-21] MEDS: PANTOPRAZOLE SOD 40 MG TABEC PO SCH (08:15)
[2018-08-21] MEDS: NIFEDIPINE CR 30 MG TAB PO SCH (08:15)
[2018-08-21] MEDS: HYDRALAZINE HCL 25 MG TAB PO SCH (08:15)
[2018-08-21] MEDS: MEROPENEM 500MG/ NS 50ML 50 ML IV SCH (08:15)
[2018-08-21] MEDS: SERTRALINE HCL 50 MG TAB PO SCH (08:15)
[2018-08-21] MEDS: HEPARIN SOD (PORCINE) 5,000 UNIT/ML VIAL SC SCH ×2 (08:15→21:25)
[2018-08-21] MEDS: ISOSORBIDE DINITRATE 20 MG TAB PO SCH ×3 (09:00→21:18)
[2018-08-21 09:55] LABS: BAND NEUTROPHILS % (MANUAL) 1 %; EOSINOPHILS % (MANUAL) 4 % (0-7); LYMPHOCYTES % (MANUAL) 9 % (19-48); MONOCYTES % (MANUAL) 5 % (3.4-9.0); NEUTROPHILS % (MANUAL) 81 % (40-74); PLATELET ESTIMATE ADEQUATE; PLATELET MORPHOLOGY COMMENT NORMAL; RBC MORPHOLOGY COMMENT NORMAL
[2018-08-21 12:34] VITALS: BP 197/88
[2018-08-21] MEDS ORDERED: NIFEDIPINE CR 30 MG TAB PO ONE (13:00)
--- NOTE | 2018-08-21 13:06 | NUR ---
ASSISTED PT UP TO W/C MAX ASSIST
--- NOTE | 2018-08-21 13:25 | Progress Note ---
DATE: August 21, 2018 MEDICINE PROGRESS NOTE SUBJECTIVE: Patient is doing well today with no complaints. He did receive his first hemodialysis treatment yesterday. He tolerated it very well. We are working on treatment #2 on tomorrow. PHYSICAL EXAMINATION VITAL SIGNS: He is afebrile, temperature is 97, pulse is 90, respiratory rate is 20, blood pressure was elevated at 186/85, pulse ox is 96% on 2 liters nasal cannula. GENERAL: In no acute distress. Alert and oriented x3. Cooperative on examination. HEENT: Head normocephalic, atraumatic. Eyes; pupils equal, round and reactive to light bilaterally. Extraocular movements intact bilaterally. NECK: Supple. Good range of motion. Throat with no evidence of any erythema or exudates in the posterior pharynx. Has poor dentition. PULMONARY: Clear to auscultation bilaterally. No wheezing. No rales. No rhonchi. No crackles appreciated. CARDIOVASCULAR: Positive S1, S2. No murmurs, rubs or gallops appreciated. ABDOMEN: Soft, nondistended, and nontender to palpation. Bowel sounds present. MUSCULOSKELETAL: Strength is 5/5 throughout. No evidence of any muscle deficit on examination. No weakness appreciated. NEUROLOGICAL: Cranial nerves II through XII are grossly intact. No evidence of any neurological deficits on exam. SKIN: Intact. Warm to touch. Good cap refill. PSYCHIATRIC: Normal affect and mood. EXTREMITIES: No edema. Good range of motion throughout. LABS: White count 6.4, hemoglobin 10, hematocrit 45, platelets of 272. Coagulation; PT 16, INR 1.26, PTT 47. Chemistries; sodium 135, potassium 3.6, chloride 103, bicarb of 23, anion gap of 13, BUN 61, creatinine is 4.2. Glucose is 88. Calcium is 8.3. MICROBIOLOGY: Urine culture, Klebsiella, ESBL, Pseudomonas. ASSESSMENT AND PLAN 1. End-stage renal disease, on hemodialysis now with a tunneled dialysis catheter, now functioning. 2. Iron-deficiency anemia. 3. Dehydration. 4. Community-acquired pneumonia. 5. Urinary tract infection, extended-spectrum beta-lactamases Escherichia coli as well as Pseudomonas. 6. Fever. 7. Type 2 diabetes. 8. Hypertension. 9. Metabolic acidosis secondary to renal failure. 10. Gastritis and esophagitis. PLAN: We are waiting for HD unit setup for outpatient. He has a tunneled dialysis catheter. He will get treatment #2 for HD tomorrow. His hemoglobin today which is currently stable. We will add some IV iron as well. He is on IV antibiotics for his UTI. He is afebrile now. Continue with PPI twice daily as per GI recommendations. He is otherwise doing well. We will get PT and OT eval. Job#: [id number] JOHNATHON
[2018-08-21 16:51] VITALS: BP 161/77
[2018-08-21] MEDS: BALSAM PERU/CASTOR OIL 60 GM OINT...G. TP SCH (17:04)
--- NOTE | 2018-08-21 17:04 | NUR ---
PT UP IN W/C ,DENIES PAIN,CARLOS TO BSD CLERA YELLOW URINE
[2018-08-21 20:00] VITALS: BP 141/65
--- NOTE | 2018-08-21 20:06 | NUR ---
RECEIVED PT IN BED NO C/O PAIN F/C INTACT DRAINING CLEAR YELLOW URINEFAMILY AT
[2018-08-22] VITALS (9 sets, daily range): BP systolic 153–186; BP diastolic 64–91
[2018-08-22] MEDS: IPRATROPIUM BROMIDE 0.02% 2.5 ML NEB NEB SCH ×4 (00:12→19:38)
[2018-08-22] MEDS: ALBUTEROL SULF 0.083% NEB SOLN 3 ML NEB NEB SCH ×6 (00:12→19:38)
[2018-08-22 05:27] LABS: BASOPHILS # (AUTO) 0.1 (0.0-0.1); BASOPHILS % 0.7 % (0.0-1.0); EOSINOPHILS # (AUTO) 0.7 (0.0-0.4); EOSINOPHILS % 9.2 % (0.0-6.0); HEMOGLOBIN 7.3 g/dL (14.0-18.0); LYMPHOCYTES # (AUTO) 0.9 (1.0-3.2); LYMPHOCYTES % 12.4 % (18.0-39.1); MEAN CORPUSCULAR HEMOGLOBIN 29.3 pg (28-32); MEAN CORPUSCULAR HGB CONC 31.7 g/dL (31-35); MEAN CORPUSCULAR VOLUME 92.4 fL (81-99); MONOCYTES # (AUTO) 0.6 (0.2-0.8); MONOCYTES % 7.9 % (4.4-11.3); NEUTROPHILS # (AUTO) 4.6 (2.1-6.9); NEUTROPHILS % 65.1 % (38.7-80.0); PLATELET COUNT 336 x10e3/uL (140-360); RED BLOOD COUNT 2.49 x10e6/uL (4.3-5.7); RED CELL DISTRIBUTION WIDTH 14.6 % (11.7-14.4)
--- NOTE | 2018-08-22 05:46 | NUR ---
NO ACUTE DISTRESS NOTED .PT RESTING DENIES PAIN CONTINUE TO MONITOR .CALL LIGHT WITH IN REACH
[2018-08-22 05:51] LABS: ANION GAP 15.3 mmol/L (8-16); CALCIUM 8.1 mg/dL (8.4-10.2); CREATININE, SERUM 4.59 mg/dL (0.72-1.25); POTASSIUM 4.3 mmol/L (3.5-5.1)
[2018-08-22 06:56] LABS: BAND NEUTROPHILS % (MANUAL) 4 %; EOSINOPHILS % (MANUAL) 4 % (0-7); LYMPHOCYTES % (MANUAL) 13 % (19-48); MONOCYTES % (MANUAL) 9 % (3.4-9.0); NEUTROPHILS % (MANUAL) 70 % (40-74)
[2018-08-22 06:57] LABS: ANISOCYTOSIS F; PLATELET ESTIMATE ADEQUATE; PLATELET MORPHOLOGY COMMENT NORMAL; POIKILOCYTOSIS S; RBC MORPHOLOGY COMMENT ABNORMAL
--- NOTE | 2018-08-22 07:30 | NUR ---
PATIENT IN RESTING WITH NO S/S OF PAIN OR DISCOMFORT. BED IN LOWER POSITION, CALL LIGHT AT REACH.
--- NOTE | 2018-08-22 07:31 | NUR ---
REPORT GIVEN TO THE ON COMING NURSE
[2018-08-22] MEDS: PANTOPRAZOLE SOD 40 MG TABEC PO SCH (07:57)
[2018-08-22] MEDS: NIFEDIPINE CR 30 MG TAB PO SCH (09:36)
[2018-08-22] MEDS: ISOSORBIDE DINITRATE 20 MG TAB PO SCH ×3 (09:36→21:01)
[2018-08-22] MEDS: SERTRALINE HCL 50 MG TAB PO SCH (09:36)
[2018-08-22] MEDS: LISINOPRIL 20 MG TAB PO SCH (09:36)
[2018-08-22] MEDS: HYDRALAZINE HCL 25 MG TAB PO SCH (09:36)
[2018-08-22] MEDS: SODIUM BICARBONATE 650 MG TAB PO SCH ×2 (09:36→17:00)
[2018-08-22] MEDS: BALSAM PERU/CASTOR OIL 60 GM OINT...G. TP SCH (09:37)
[2018-08-22] MEDS: HEPARIN SOD (PORCINE) 5,000 UNIT/ML VIAL SC SCH (09:44)
[2018-08-22] MEDS: MEROPENEM 500MG/ NS 50ML 50 ML IV SCH (10:00)
--- NOTE | 2018-08-22 10:44 | NUR ---
SPOKE WITH MD REGARDING ABNORMAL LAB RESULTS. NEW ORDER RECEIVED.
--- NOTE | 2018-08-22 10:55 | Progress Note ---
DATE: August 22, 2018 MEDICINE PROGRESS NOTE SUBJECTIVE: Patient is doing well today with no other complaints. He is suppose to get his HD treatment #2 today. We are working on an HD unit for outpatient. Hemoglobin is low for which we will give him blood transfusion. OBJECTIVE VITAL SIGNS: Temperature is 97.3, pulse 94, respiratory rate 18. Blood pressure is 184/84, but we adjusted his medication yesterday. Pulse ox is 98% on room air. LAB FINDINGS: White count 7, hemoglobin 7.3, hematocrit 23, platelets 336. Coagulations are normal. Chemistries: Sodium 135, potassium 4.3, chloride 102, bicarb 22, anion gap 15, BUN 69, creatinine 4.5, glucose 86. MICROBIOLOGY: Urine culture: Klebsiella ESBL and pseudomonas. PHYSICAL EXAMINATION GENERAL: Not in acute distress. Alert and oriented x3. Cooperative on examination. HEENT: Head is normocephalic, atraumatic. Eyes: Pupils are equal, round and reactive to light bilaterally. Extraocular movements are intact bilaterally. NECK: Supple. Good range of motion. Throat with no evidence of any erythema or exudates in the posterior pharynx. Has poor dentition. PULMONARY: Clear to auscultation bilaterally. No wheezing. No rales. No rhonchi. No crackles appreciated. CARDIOVASCULAR: Positive S1, S2. No murmurs, rubs or gallops appreciated. ABDOMEN: Soft, nondistended, and nontender to palpation. Bowel sounds present. MUSCULOSKELETAL: Strength is 5/5 throughout. No evidence of any muscle deficit on examination. No weakness appreciated. NEUROLOGICAL: Cranial nerves II through XII are grossly intact. No evidence of any neurological deficits on exam. SKIN: Intact. Warm to touch. Good cap refill. PSYCHIATRIC: Normal affect and mood. EXTREMITIES: No edema. Good range of motion throughout. ASSESSMENT AND PLAN 1. End-stage renal disease, on hemodialysis with a tunneled dialysis catheter. 2. Iron-deficiency anemia. 3. Dehydration. 4. Community-acquired pneumonia. 5. Urinary tract infection with extended-spectrum beta-lactamases Escherichia coli as well as pseudomonas. 6. Fever, resolved. 7. Type-2 diabetes. 8. Hypertension. 9. Metabolic acidosis secondary to renal failure. 10. Gastritis and esophagitis. PLAN: His hemoglobin is low at 7.3. We will transfuse 2 units of packed RBCs with dialysis today. He will get HD treatment #2 today. He is doing well. He is still on an iron supplement. Hematology is following closely. GI is following as well. He walked with PT and OT. His urine cultures were positive, which is being managed currently by ID. We are waiting for an HD unit as an outpatient. Discussed this with case management. Job#: [id number]
--- NOTE | 2018-08-22 12:59 | NUR ---
FAXED UPDATES TO [facility] NOT[facility] COMPLETED LABS. ALERTED EDILBERTO FITCH REP FOR FACILITY.
--- NOTE | 2018-08-22 14:29 | NUR ---
Nutrition Intervention Note RD Recommendation(s) for Physician: - Continue renal diet as ordered - Rec MVi with minerals and vitamin C for wound healing - Rec 1 pkt Beneprotein w every meal to promote protein intake for HD and wound healing - Rec probiotics for gut health - RD provided renal diet education 08/22 Plan of Care: RD following, monitoring for tolerance and adequacy Nutrition reason for involvement: Follow up RD Assessment 08/22 Chart reviewed. Pt is new on HD. Visited pt in the room. Pt reports good appetite with 75-100% recorded meal intake. No GI complains noted. LBM 08/20, normal per pt. Pt denies any chewing or swallowing difficulty. RD provided renal education. Will continue to monitor and follow. 08/18 Chart reviewed. 53yo M, who is admitted with complaints of generalized weakness, fatigue and not feeling well. Pt is new on HD. Visited pt in the room. Pt reports good appetite with 75-100% recorded meal intake. No GI complains noted. LBM 08/18. Pt denies any chewing or swallowing difficulty. No recent weight loss RECOVERY RN. Pending colonoscopy. HD is planned for tomorrow. Pt had dialysis catheter placed today and appeared to be very lethargic. RD will return for diet education. Will continue to monitor and follow. Principal Problems/Diagnoses: 1. Chronic kidney disease, stage 5, with uremic symptoms, now end-stage renal disease on hemodialysis, now receiving tunneled dialysis catheter. 2. Iron deficiency anemia. 3. Dehydration. 4. Community-acquired pneumonia. 5. Urinary tract infection. PMH: hypertension, type-2 diabetes uncontrolled and also underlying CKD, stage 5 GI: liquid brown stool x4 08/22 (on IV abx and GI following) Skin: Left Gluteal - Stage II, per wound care notes Labs: (08/22) Na 135 L, BUN 59 H, Creatinine 4.59 H, Ca 8.1 L (08/18) BUN 92 H, Creatinine 7.6 H, Ca 8.2 L Meds: sodium bicarb, protonix, IV abx Ht: 66in Wt: 199lb- 08/17, 179.25lb 08/20 BMI: 32.1 kg/m2 IBW: 142lb Malnutrition Evaluation (08/18/2017) The patient does not meet criteria for a specified degree of malnutrition at this time. Will re-evaluate at follow-up as appropriate. Nutrition Prescription (Diet Order):renal diabetic diet Diet Adequacy: Meeting calorie needs, not meeting protein needs Diet Education Needs Assessment: Diet education indicated, pt is agreeable with plan. Learner(s): pt Barriers: n/a Cultural/Language Modifications: n/a Readiness: unsure Method: explanations, handouts Topics: renal diet Understanding/Compliance: Understood. All questions have been answered. Nutrition Care Level: low Nutrition Diagnosis: Increased protein needs related to altered skin integrity and ESRD as evidenced by stage II pressure wound and on dialysis. Goal: Patient will meet 75-100% of estimated needs by follow up Progress: Progressing Interventions: Mineral/ carbohydrate modified diet, Commercial food, Multivitamin/mineral supplement therapy Monitoring/Evaluation: Total energy intake, Total protein intake, Modified diet, supplement, Weight change Signed: Mona Ornelas MS, RD, LD
--- NOTE | 2018-08-22 15:42 | NUR ---
PATIENT IN ROOM EXERCISING WITH PHYSICAL THERAPY, WILL CONTINUE TO MONITOR.
[2018-08-22] MEDS ORDERED: SODIUM CHLORIDE 0.9% 250ML 250 ML ONE (18:31)
--- NOTE | 2018-08-22 18:50 | NUR ---
FIRST UNIT OF BLOOD GIVEN BY DIALYSIS NURSE. WILL MONITOR.
--- NOTE | 2018-08-22 19:40 | NUR ---
RECEIVED PT IN BED RECEIVING DIALYSIS .PT IS GETTING BLOOD WITH DIALYSIS .FAMILY AT THE BEDSIDE .CALL LIGHT WITH IN REACH .CONTINUE TO MONITOR
[2018-08-22] MEDS ORDERED: HEPARIN SOD (PORCINE) 5,000 UNIT/ML VIAL SC SCH (21:00)
[2018-08-23] VITALS: BP 126/66
[2018-08-23] MEDS: IPRATROPIUM BROMIDE 0.02% 2.5 ML NEB NEB SCH ×3 (00:05→15:00)
[2018-08-23] MEDS: ALBUTEROL SULF 0.083% NEB SOLN 3 ML NEB NEB SCH ×5 (00:05→17:42)
[2018-08-23 04:00] VITALS: BP 179/84
[2018-08-23 05:40] LABS: BASOPHILS # (AUTO) 0.1 (0.0-0.1); BASOPHILS % 0.9 % (0.0-1.0); EOSINOPHILS # (AUTO) 0.7 (0.0-0.4); EOSINOPHILS % 8.6 % (0.0-6.0); HEMATOCRIT 30.1 % (38.2-49.6); HEMOGLOBIN 9.7 g/dL (14.0-18.0); LYMPHOCYTES # (AUTO) 0.9 (1.0-3.2); LYMPHOCYTES % 11.3 % (18.0-39.1); MEAN CORPUSCULAR HEMOGLOBIN 29.4 pg (28-32); MEAN CORPUSCULAR HGB CONC 32.2 g/dL (31-35); MEAN CORPUSCULAR VOLUME 91.2 fL (81-99); MONOCYTES # (AUTO) 0.7 (0.2-0.8); MONOCYTES % 9.2 % (4.4-11.3); NEUTROPHILS # (AUTO) 4.9 (2.1-6.9); NEUTROPHILS % 65.2 % (38.7-80.0); PLATELET COUNT 329 x10e3/uL (140-360); RED CELL DISTRIBUTION WIDTH 15.1 % (11.7-14.4)
[2018-08-23 06:12] LABS: CALCIUM 8.3 mg/dL (8.4-10.2); CREATININE, SERUM 3.72 mg/dL (0.72-1.25)
--- NOTE | 2018-08-23 06:22 | NUR ---
PT RESTING .NO ACUTE DISTRESS NOTED CALL LIGHT WITH IN REACH .CONTINUE TO MONITOR
--- NOTE | 2018-08-23 07:08 | NUR ---
REPORT GIVEN TO THE ONCOMING NURSE.
--- NOTE | 2018-08-23 07:20 | NUR ---
PATIENT IN BED RESTING WITH EYE CLOSED, NO RESPIRATORY DISTRESS OBSERVED. CARLOS CATHETER DRAINING CLEAR YELLOW URINE. BED IN LOWER POSITION, CALL LIGHT AT REACH.
[2018-08-23 07:25] VITALS: BP 180/83
[2018-08-23 08:00] VITALS: BP 180/85
[2018-08-23] MEDS: PANTOPRAZOLE SOD 40 MG TABEC PO SCH (08:08)
[2018-08-23 08:26] LABS: EOSINOPHILS % (MANUAL) 14 % (0-7); HYPOCHROMASIA MODERATE; LYMPHOCYTES % (MANUAL) 12 % (19-48); MONOCYTES % (MANUAL) 7 % (3.4-9.0); NEUTROPHILS % (MANUAL) 67 % (40-74); RBC MORPHOLOGY COMMENT NORMAL
[2018-08-23 08:27] LABS: ANISOCYTOSIS SLIGHT; PLATELET ESTIMATE ADEQUATE; PLATELET MORPHOLOGY COMMENT NORMAL
[2018-08-23] MEDS ORDERED: MEROPENEM 500MG 500 MG in SODIUM CHLORIDE 0.9% 50ML 50 ML IV SCH (09:00)
[2018-08-23] MEDS: ISOSORBIDE DINITRATE 20 MG TAB PO SCH ×2 (09:25→15:24)
[2018-08-23] MEDS: NIFEDIPINE CR 30 MG TAB PO SCH (09:25)
[2018-08-23] MEDS: SODIUM BICARBONATE 650 MG TAB PO SCH (09:25)
[2018-08-23] MEDS: LISINOPRIL 20 MG TAB PO SCH (09:25)
[2018-08-23] MEDS: HYDRALAZINE HCL 25 MG TAB PO SCH (09:25)
[2018-08-23] MEDS: MEROPENEM 500MG/ NS 50ML 50 ML IV SCH (09:25)
[2018-08-23] MEDS: SERTRALINE HCL 50 MG TAB PO SCH (09:26)
[2018-08-23] MEDS: BALSAM PERU/CASTOR OIL 60 GM OINT...G. TP SCH (09:26)
--- NOTE | 2018-08-23 11:45 | NUR ---
IN TO SEE PATIENT, NEW ORDER RECEIVED FOR BAKARI EVALUATION. GAUGE OPERATOR AWARE.
[2018-08-23 12:00] VITALS: BP 184/81
--- NOTE | 2018-08-23 12:40 | NUR ---
ORDERS FOR LTAC EVAL AND TRANSFER CHOICE LETTER SIGNED BY PT FOR [facility] NOTIFIED RAND WITH [facility] EVAL DONE AND PT ACCEPTED FOR SHORT TERM STAY MOT DONE AND IN PACKET AT DESK AWAIT ROOM ASSIGNMENT
--- NOTE | 2018-08-23 15:10 | Discharge Summary ---
FINAL DISCHARGE DIAGNOSES 1. End-stage renal disease on hemodialysis now with a right tunneled dialysis catheter. 2. Iron deficiency anemia. 3. Community-acquired pneumonia. 4. Urinary tract infection with extended spectrum beta lactamase Escherichia coli as well as pseudomonas. 5. Fever, resolved. 6. Type-2 diabetes. 7. Hypertension. 8. Metabolic acidosis secondary to renal failure. 9. Gastritis and esophagitis. CONSULTANTS: We had GI and infectious disease. VITAL SIGNS: Temperature is 97.5, pulse 97, respiratory rate 18, blood pressure 179/84, pulse oxygen 95% on room air. LAB FINDINGS: White count 7.5, hemoglobin 9.7, hematocrit 30, platelets 329. Coagulation: PT 16, INR 1.2, PTT 47. Chemistry: Sodium 139, potassium 4, chloride 104, bicarb 24, anion gap 18, BUN 40, creatinine 3.7. Glucose is 91, and calcium is 8.3. Urinalysis is concerning for UTI. Urine drug screen was negative. Hepatitis panel was all negative. Flu was negative. Group-A strep was negative. MICROBIOLOGY: Blood cultures were negative x4. Throat culture was negative. Urine culture positive for ESBL Klebsiella pneumoniae as well as pseudomonas. IMAGING STUDIES: Chest x-ray showed patchy airspace opacities in the left lung concerning for underlying pneumonia. CT abdomen and pelvis shows incompletely evaluated thickening of the wall of the bladder concerning for underlying cystitis. Renal ultrasound shows small left kidney 7.1 cm and right kidney 9 cm. He has small echogenic kidneys with renal medical disease. HOSPITAL COURSE: This is a 53-year-old male with known history of type-2 diabetes and hypertension and also known history of CKD, stage 5, who came into the ED with underlying cough, congestion and shortness of breath. Patient was also found to be in renal failure. The patient reports that he has been in CKD stage 5 for many months now and comes in volume overloaded as well. After further discussion, the patient agreed to hemodialysis. A right tunneled dialysis catheter was placed, and he was started on hemodialysis here while the patient's dialysis was being set up at [facility] under the care of Dr. Luna or Dr. Mendenhall. In relation to his iron deficiency anemia, hematology was consulted and was given iron infusion. He was also given blood transfusion while he was in the hospital. He was also found to have community-acquired pneumonia, for which he was on broad-spectrum IV antibiotics. Blood cultures were negative. His urine culture was positive for klebsiella ESBL as well as pseudomonas, which is only sensitive to meropenem. At this time, the patient will be discharged to [facility] for further antibiotic therapy for 14 total days as per ID's recommendations. His fever was resolved. His diabetes and hypertension were all managed and controlled. While here in the hospital, GI was consulted for underlying anemia. He is status post EGD performed that showed gastritis and esophagitis. The patient was started on PPI b.i.d. as well as Carafate. On discharge the patient was doing well with no other complaints. On the day of discharge, vital signs were stable. Labs were reviewed and stable. The patient was seen, evaluated and examined thoroughly on the day of discharge. No other complaints. Patient verbalized understanding and agrees to plan of care, to follow up accordingly as an outpatient with the primary care physician in 1 week and his normal hemodialysis chair time and schedule as per [facility] schedule on 3rd shift. MEDICATIONS: See medication reconciliation form. DISPOSITION: [facility]. CONDITION: Stable. DIET: Renal. In the event of any worsening symptoms, the patient was advised to come back to the ED for further evaluation. Discharge summary took greater than 35 minutes. ANA MARIA MEDNENHALL MD Job#: [id number]
--- NOTE | 2018-08-23 16:00 | NUR ---
PATIENT WHEELING SELF IN HALLWAY WITH PHYSICAL THERAPY.
--- NOTE | 2018-08-23 17:10 | NUR ---
PATIENT TRANSFERRED TO LTAC. REPORT CALLED AND GIVEN TO RECEIVING NURSE. PATIENT CHILDREN IN ROOM AT THE TIME OF TRANSFER. IV TO LEFT FOREARM INTACT AND PATENT. ALL PERSONAL ITEMS TAKEN WITH PATIENT. LEFT UNIT ON STRETCHER PER AMBULANCE.
--- NOTE | 2018-08-23 23:21 | NUR ---
SPOKE TO JOSH SCHAEFER RN AT [facility]. VERIFIED WITH NURSE THAT ORIGINAL MOT WAS FOUND IN THE PACKET THAT WAS SENT WITH THE PATIENT.
== END 2018-08-23 17:04 | DRG 673 ==
LOC: ER 08:41 → ERHOLD 11:53 → ICU 13:47 → MED/SURG3 08-15 15:02
PROVIDERS: ADMIT Internal Medicine; ATTEND Internal Medicine
PROC: 30233N1 Transfusion of Nonautologous Red Blood Cells into Peripheral Vein, Percutaneous Approach (ICD-10-PCS; 2018-08-14)
PROC: 0JH63XZ Insertion of Tunneled Vascular Access Device into Chest Subcutaneous Tissue and Fascia, Percutaneous Approach (ICD-10-PCS; principal; 2018-08-18)
PROC: 02H633Z Insertion of Infusion Device into Right Atrium, Percutaneous Approach (ICD-10-PCS; 2018-08-18)
PROC: 0DB68ZX Excision of Stomach, Via Natural or Artificial Opening Endoscopic, Diagnostic (ICD-10-PCS; 2018-08-18)
PROC: 0DB78ZX Excision of Stomach, Pylorus, Via Natural or Artificial Opening Endoscopic, Diagnostic (ICD-10-PCS; 2018-08-18)
PROC: 5A1D70Z Performance of Urinary Filtration, Intermittent, Less than 6 Hours Per Day (ICD-10-PCS; 2018-08-19)
DX: I12.0 Hypertensive chronic kidney disease with stage 5 chronic kidney disease or end stage renal disease (principal); N18.6 End stage renal disease; J18.9 Pneumonia, unspecified organism; E87.2 Acidosis; E11.22 Type 2 diabetes mellitus with diabetic chronic kidney disease; E11.65 Type 2 diabetes mellitus with hyperglycemia; D63.1 Anemia in chronic kidney disease; D50.9 Iron deficiency anemia, unspecified; E86.0 Dehydration; N30.90 Cystitis, unspecified without hematuria; B96.1 Klebsiella pneumoniae [K. pneumoniae] as the cause of diseases classified elsewhere; B96.5 Pseudomonas (aeruginosa) (mallei) (pseudomallei) as the cause of diseases classified elsewhere; Z16.12 Extended spectrum beta lactamase (ESBL) resistance; E78.5 Hyperlipidemia, unspecified; F32.9 Major depressive disorder, single episode, unspecified; K29.70 Gastritis, unspecified, without bleeding; K44.9 Diaphragmatic hernia without obstruction or gangrene; K20.9 Esophagitis, unspecified; R53.81 Other malaise; Z28.21 Immunization not carried out because of patient refusal
CPT/HCPCS: 36415; 36558; 36598; 43239; 71045; 74176; 74470; 76770; 80048; 80053; 80307; 81001; 82550; 82553; 82607; 82728; 82746; 82948; 83518; 83540; 83605; 83735; 83880; 84466; 84484; 85025; 85045; 85610; 85730; 86677; 86705; 86706; 86850; 86900; 86920; 87040; 87070; 87086; 87186; 87340; 87350; 87400; 88305; 88312; 88342; 90962; 93005; 94640; 97139; 99284; C1750; C1769; J0360; J1644; J1756; J1940; J1956; J2001; J2150; J2250; J2405; J7030; J7040; J7050; P9016; Q4081; Q9967

== ENCOUNTER 2018-10-12 08:03 | Inpatient (IN) | payer MEDICARE ==
[~2018-10-12] VITALS: Ht 167.6 cm; Wt 81.2 kg
[~2018-10-12 08:03] MED LIST changes: +AMLODIPINE BESY10 MG PO; +HYDRALAZINE HCL25 MG PO; +IRON INJ; +VITAMIN D400 UNIT PO
[2018-10-12] MEDS ORDERED: CEFTRIAXONE SOD 1 GM/NS 50 ML 50 ML IV ONE (08:26)
[2018-10-12] MEDS ORDERED: GENTAMICIN 80MG/NS 100 ML 100 ML IV ONE (08:27)
[2018-10-12] MEDS ORDERED: SODIUM CHLORIDE 0.9% 500ML 500 ML ONE (08:27)
[2018-10-12] MEDS ORDERED: MEROPENEM 1GM 100 ML IV ONE (08:30)
[2018-10-12] MEDS ORDERED: HYDRALAZINE HCL25 MG PO (08:48)
[2018-10-12] MEDS ORDERED: TAMSULOSIN HCL0.4 MG PO (08:48)
[2018-10-12] MEDS ORDERED: DEXILANT30 MG PO (08:48)
[2018-10-12] MEDS ORDERED: NIFEDIPINE10 MG PO (08:48)
[2018-10-12 09:01] LABS: BASOPHILS # (AUTO) 0.1 (0.0-0.1); BASOPHILS % 1.3 % (0.0-1.0); EOSINOPHILS # (AUTO) 0.4 (0.0-0.4); HEMATOCRIT 29.1 % (38.2-49.6); HEMOGLOBIN 9.5 g/dL (14.0-18.0); LYMPHOCYTES # (AUTO) 1.2 (1.0-3.2); LYMPHOCYTES % 20.9 % (18.0-39.1); MEAN CORPUSCULAR HEMOGLOBIN 29.9 pg (28-32); MEAN CORPUSCULAR HGB CONC 32.6 g/dL (31-35); MEAN CORPUSCULAR VOLUME 91.5 fL (81-99); MONOCYTES # (AUTO) 0.5 (0.2-0.8); MONOCYTES % 8.7 % (4.4-11.3); NEUTROPHILS # (AUTO) 3.3 (2.1-6.9); NEUTROPHILS % 59.6 % (38.7-80.0); PLATELET COUNT 236 x10e3/uL (140-360); RED BLOOD COUNT 3.18 x10e6/uL (4.3-5.7); RED CELL DISTRIBUTION WIDTH 14.7 % (11.7-14.4)
[2018-10-12] MEDS ORDERED: IOPAMIDOL 610MG/1ML 300 MG/ML VIAL IV ONE (09:09)
[2018-10-12] MEDS ORDERED: BELLADONNA/OPIUM 30 MG SUPP RC ONE (09:09)
[2018-10-12 09:11] LABS: INR 0.95; PARTIAL THROMBOPLASTIN TIME 31.1 seconds (23.8-35.5); PROTHROMBIN TIME 13.5 seconds (11.9-14.5)
[2018-10-12 09:12] LABS: ANION GAP 15.8 mmol/L (8-16); CALCIUM 8.7 mg/dL (8.4-10.2); CREATININE, SERUM 3.13 mg/dL (0.72-1.25); POTASSIUM 3.8 mmol/L (3.5-5.1)
[2018-10-12] MEDS ORDERED: HYDRALAZINE HCL 20 MG/ML VIAL ONE (09:13)
[2018-10-12] MEDS ORDERED: ONDANSETRON HCL INJ 2MG/ML 2ML 2 MG/ML VIAL ONE ×2 (10:30→17:32)
[2018-10-12] MEDS ORDERED: METOCLOPRAMIDE HCL 10 MG/2ML VIAL ONE (10:30)
[2018-10-12] MEDS ORDERED: ONDANSETRON HCL INJ 2MG/ML 2ML 2 MG/ML VIAL IV PRN (11:45)
[2018-10-12] MEDS ORDERED: ACETAMINOPHEN/CODEINE 300MG - 30MG TAB PO PRN (11:45)
[2018-10-12] MEDS ORDERED: DIPHENHYDRAMINE HCL INJ 50 MG/ML VIAL IM PRN (11:45)
[2018-10-12] MEDS ORDERED: BELLADONNA/OPIUM 30 MG SUPP RC PRN (11:45)
[2018-10-12] MEDS ORDERED: DIPHENHYDRAMINE HCL 25 MG CAP PO PRN (11:45)
[2018-10-12 12:44] LABS: BASOPHILS # (AUTO) 0.1 (0.0-0.1); BASOPHILS % 0.9 % (0.0-1.0); EOSINOPHILS # (AUTO) 0.3 (0.0-0.4); EOSINOPHILS % 4.3 % (0.0-6.0); LYMPHOCYTES # (AUTO) 1.1 (1.0-3.2); LYMPHOCYTES % 13.5 % (18.0-39.1); MEAN CORPUSCULAR HEMOGLOBIN 29.9 pg (28-32); MEAN CORPUSCULAR HGB CONC 32.1 g/dL (31-35); MONOCYTES # (AUTO) 0.5 (0.2-0.8); MONOCYTES % 5.8 % (4.4-11.3); NEUTROPHILS # (AUTO) 5.9 (2.1-6.9); NEUTROPHILS % 74.5 % (38.7-80.0); PLATELET COUNT 223 x10e3/uL (140-360); RED BLOOD COUNT 3.01 x10e6/uL (4.3-5.7); RED CELL DISTRIBUTION WIDTH 14.9 % (11.7-14.4)
[2018-10-12 12:49] LABS: ANION GAP 14.4 mmol/L (8-16); CALCIUM 7.7 mg/dL (8.4-10.2); CREATININE, SERUM 2.97 mg/dL (0.72-1.25); POTASSIUM 3.4 mmol/L (3.5-5.1)
[2018-10-12 14:14] VITALS: BP 137/62
--- NOTE | 2018-10-12 14:36 | NUR ---
Received form PACU, alert and responsive, s/p TURP with CBI, [address], VSS, denies any pains at the moment, PMH of stroke with right sided weakness and some right sided contractures, Right chest Dual emeka Catheter for dialysis, gets hemodialysis on T, Th and Sat. Call light within reach and will monitor.
[2018-10-12 14:50] VITALS: BP 137/62
--- NOTE | 2018-10-12 15:44 | NUR ---
Call to Dr. Norwood and notified of patient and of dialysis status and orders for BMP tomorrow and to restart some home meds.
[2018-10-12 16:17] VITALS: BP 143/67
[2018-10-12] MEDS ORDERED: LISINOPRIL 10 MG TAB PO SCH (17:00)
[2018-10-12] MEDS ORDERED: NIFEDIPINE 10 MG CAP PO SCH (17:00)
[2018-10-12] MEDS ORDERED: DOCUSATE SODIUM 100 MG CAP PO SCH (17:00)
[2018-10-12] MEDS ORDERED: LIDOCAINE HCL 2% LOCAL INJ 5 ML SDV VIAL INJ ONE (17:32)
[2018-10-12] MEDS ORDERED: PROPOFOL IV EMULSION 10 MG/ML 20 ML VIAL ONE (17:32)
[2018-10-12] MEDS ORDERED: SEVOFLURANE INHAL SOLN 250 ML PEN BTL ONE (17:32)
[2018-10-12] MEDS: LISINOPRIL 20 MG TAB PO SCH (17:55)
[2018-10-12] MEDS: SODIUM CHLORIDE 0.9% 1000ML 1,000 ML IV SCH (17:55)
[2018-10-12] MEDS: NIFEDIPINE CR 30 MG TAB PO SCH (17:55)
[2018-10-12] MEDS ORDERED: FENTANYL CITRATE/PF 100MCG/2 ML INJ ONE (18:42)
[2018-10-12 20:00] VITALS: BP 142/64
[2018-10-12 21:00] VITALS: BP 142/64
[2018-10-12] MEDS ORDERED: ISOSORBIDE DINITRATE 20 MG PO SCH (21:00)
[2018-10-12] MEDS: HYDRALAZINE HCL 25 MG TAB PO SCH (22:22)
[2018-10-12] MEDS: ISOSORBIDE DINITRATE 20 MG TAB PO SCH (22:22)
[2018-10-13] VITALS (8 sets, daily range): BP systolic 117–165; BP diastolic 55–70
--- NOTE | 2018-10-13 01:35 | Consultation ---
DATE OF CONSULTATION: Consultation Note REASON FOR CONSULTATION: UTI. HISTORY OF PRESENT ILLNESS: This patient is a 53-year-old male, who is admitted to the [facility] from the Urology Office. The patient was admitted for prostatectomy. He does have underlying history of benign prostatic hypertrophy. Apparently, his cultures are showing VRE. was asked to the patient. The patient is not a good source of information. History was taken mainly from the chart. The patient has a history of hypertension, diabetes mellitus, chronic kidney disease, stage 5, comes in for prostatectomy. Apparently, I am asked to see and to make recommendation to his antibiotic. Apparently, he has a history of VRE. The patient is currently lying in bed comfortably, has no complaints. PAST MEDICAL HISTORY: As above. PAST SURGICAL HISTORY: As above. ALLERGIES: NKDA. SOCIAL HISTORY: Does not smoke. No drug abuse or alcohol abuse. FAMILY HISTORY: Otherwise noncontributory. REVIEW OF SYSTEMS: At the present time, he is lying in bed comfortably. HEENT: There is no headache, visual changes, or hearing changes. GI: There is no nausea, no vomiting, and no diarrhea. CARDIAC: There is no arrhythmia. NEURO: No seizure activity. SKIN: There are no rashes. PHYSICAL EXAMINATION: GENERAL: He is currently alert and oriented, does not seem to be in acute distress. VITAL SIGNS: Stable. Currently, afebrile. HEENT: No pallor or icteric. NECK: Supple. CHEST: Clear. HEART: S1 and S2 normal. ABDOMEN: Soft. Bowel sounds present. No tenderness. EXTREMITIES: No edema. IMPRESSION: 1. History of urinary tract infection with vancomycin-resistant Enterococcus. I do not have the cultures. At the present time, we will put the patient on Zyvox 600 mg IV piggyback q.12 hours. We will discuss with Urology, Dr. Mcgrath, his attending to get further information. 2. Chronic kidney disease. We will follow with you. Thank you for asking me to see this patient. MD MARYAM Bunn/CHIP /[id number]
[2018-10-13 05:48] LABS: BASOPHILS % 0.4 % (0.0-1.0); EOSINOPHILS # (AUTO) 0.3 (0.0-0.4); EOSINOPHILS % 2.9 % (0.0-6.0); HEMATOCRIT 24.7 % (38.2-49.6); HEMOGLOBIN 7.8 g/dL (14.0-18.0); LYMPHOCYTES # (AUTO) 0.7 (1.0-3.2); LYMPHOCYTES % 7.6 % (18.0-39.1); MEAN CORPUSCULAR HEMOGLOBIN 30.4 pg (28-32); MEAN CORPUSCULAR HGB CONC 31.6 g/dL (31-35); MEAN CORPUSCULAR VOLUME 96.1 fL (81-99); MONOCYTES # (AUTO) 0.5 (0.2-0.8); MONOCYTES % 5.6 % (4.4-11.3); NEUTROPHILS # (AUTO) 7.6 (2.1-6.9); NEUTROPHILS % 82.6 % (38.7-80.0); PLATELET COUNT 224 x10e3/uL (140-360); RED BLOOD COUNT 2.57 x10e6/uL (4.3-5.7); RED CELL DISTRIBUTION WIDTH 15.7 % (11.7-14.4)
[2018-10-13 06:01] LABS: ANION GAP 11.4 mmol/L (8-16); CALCIUM 7.7 mg/dL (8.4-10.2); CREATININE, SERUM 3.58 mg/dL (0.72-1.25); POTASSIUM 3.4 mmol/L (3.5-5.1)
--- NOTE | 2018-10-13 07:39 | NUR ---
Received patient and walking rounds complete. Patient asleep at this time, no signs of distress. Call light in reach, will continue to monitor.
[2018-10-13] MEDS ORDERED: DOCUSATE SODIUM 100 MG CAP PO PRN (09:15)
[2018-10-13] MEDS ORDERED: DEXTROSE 50% SYRINGE 50 ML IV PRN (09:15)
[2018-10-13] MEDS ORDERED: SODIUM CHLORIDE 0.9% 250ML 250 ML IV ONE (09:30)
[2018-10-13 09:38] LABS: BASOPHILS # (AUTO) 0.1 (0.0-0.1); BASOPHILS % 0.7 % (0.0-1.0); EOSINOPHILS # (AUTO) 0.3 (0.0-0.4); EOSINOPHILS % 2.8 % (0.0-6.0); HEMATOCRIT 25.7 % (38.2-49.6); LYMPHOCYTES # (AUTO) 0.6 (1.0-3.2); LYMPHOCYTES % 7.1 % (18.0-39.1); MEAN CORPUSCULAR HEMOGLOBIN 30.4 pg (28-32); MEAN CORPUSCULAR HGB CONC 31.1 g/dL (31-35); MEAN CORPUSCULAR VOLUME 97.7 fL (81-99); MONOCYTES # (AUTO) 0.5 (0.2-0.8); MONOCYTES % 5.4 % (4.4-11.3); NEUTROPHILS # (AUTO) 7.3 (2.1-6.9); NEUTROPHILS % 83.4 % (38.7-80.0); PLATELET COUNT 202 x10e3/uL (140-360); RED BLOOD COUNT 2.63 x10e6/uL (4.3-5.7); RED CELL DISTRIBUTION WIDTH 15.7 % (11.7-14.4)
[2018-10-13] MEDS: HYDRALAZINE HCL 25 MG TAB PO SCH ×3 (10:08→21:00)
[2018-10-13] MEDS: TAMSULOSIN HCL 0.4 MG CAP PO SCH (10:08)
[2018-10-13] MEDS: PANTOPRAZOLE SOD 40 MG TABEC PO SCH (10:09)
[2018-10-13] MEDS: SERTRALINE HCL 50 MG TAB PO SCH (10:09)
[2018-10-13] MEDS: LISINOPRIL 20 MG TAB PO SCH ×2 (10:09→17:00)
[2018-10-13] MEDS: ISOSORBIDE DINITRATE 20 MG TAB PO SCH ×3 (10:09→21:00)
[2018-10-13] MEDS: NIFEDIPINE CR 30 MG TAB PO SCH ×2 (10:09→17:00)
[2018-10-13] MEDS: SODIUM CHLORIDE 0.9% 1000ML 1,000 ML IV SCH (10:13)
[2018-10-13] MEDS: LINEZOLID 600 MG/D5W 300ML 300 ML IV SCH ×2 (12:05→23:51)
--- NOTE | 2018-10-13 12:05 | NUR ---
REPORT CALLED AND GIVEN TO NURSE CRESPO
--- NOTE | 2018-10-13 12:30 | NUR ---
TRANSFERRED PATIENT TO ROOM 214 VIA WHEELCHAIR, NO SIGNS OF DISTRESS.
--- NOTE | 2018-10-13 14:49 | NUR ---
CM SPOKE TO PATIENT AT BEDSIDE REGARDING CARE HOME ACUTE CARE PLACEMENT ORDER. PATIENT STATES HE HAS CONCERNS GOING TO [facility] BECAUSE HE HAS BILLS DUE AND THINGS TO HANDLE AT HOME. CM ASKED PATIENT IF HE HAD FAMILY THAT COULD TAKE CARE OF HIS BILLS AND HANDLE HIS ERRANDS. PATIENT STATES HE DOES NOT TRUST FAMILY TO HANDLE ANYTHING BECAUSE " MY SON SPENT MY BILL MONEY LAST TIME I GAVE IT TO HIM". PATIENT REQUESTS TO SPEAK WITH ATTENDING PRIOR TO MAKING A DECISION. BEDSIDE NURSE CHERIE NOTIFIED THAT PATIENT NEEDS TO SPEAK WITH MD TODAY SO CM CAN INITIATE [facility]UTE CARE PLACEMENT OR CHANGE THE DISCHARGE PLAN.
[2018-10-13] MEDS ORDERED: SODIUM CHLORIDE 0.9% 250ML 250 ML ONE (15:09)
[2018-10-13] MEDS ORDERED: HEPARIN SOD (PORCINE) 1000 UNIT/ML SDV IV PRN (16:30)
[2018-10-13] MEDS ORDERED: SODIUM CHLORIDE 0.9% 1000ML 2,000 ML IV PRN (16:30)
--- NOTE | 2018-10-13 17:19 | History and Physical ---
CHIEF COMPLAINT: Status post TURP. HISTORY OF PRESENT ILLNESS: This is a 53-year-old male with known history of CVA in the past, ESRD on HD, recent BPH requiring a Ricci catheter, also has history of MDRO UTI, came in for a TURP procedure that was performed by Urology, Dr. Mcgrath. Postprocedurally, the patient was doing well with no complaints. The patient also developed multidrug resistant Klebsiella pneumoniae and also VRE UTI at the [facility]. The patient is seen and evaluated at bedside, currently doing well with no complaints. He does have some minor hematuria in the Ricci cath. He does still have CBI as well. He denies any chest pain, palpitation, nausea, or vomiting. He reports no other complaints. REVIEW OF SYSTEMS: Pertinent positive for BPH, status post TURP. Pertinent negative for and denies any chest pain, palpitation, nausea, vomiting, diarrhea, dysuria, hematuria, frequency, urgency, lightheadedness, dizziness, abdominal pain, headaches, shortness of breath, cough, congestion, fever, or any other complaints. Rest of the 14-point review of systems are reviewed with the patient and are negative. ALLERGIES: NO KNOWN DRUG ALLERGIES. HOME MEDICATIONS: Plavix 75 mg daily, hydralazine 100 mg p.o. t.i.d., isosorbide dinitrate 20 mg p.o. t.i.d., , nifedipine 60 mg b.i.d., sertraline 50 mg daily, tamsulosin 0.4 mg p.o. daily, PAST MEDICAL HISTORY: ESRD on HD, BPH status post TURP, , history of CVA in the past, depression. PAST SURGICAL HISTORY: Status post TURP, dialysis catheter. FAMILY HISTORY: SOCIAL HISTORY: No drug or alcohol. . He is now currently not working. PHYSICAL EXAMINATION: VITAL SIGNS: Temperature is 97.6, pulse 80, respiratory rate is 18, blood pressure 159/70, and pulse ox 97% on room air. GENERAL: Not in acute distress. Alert and oriented x3. Cooperative on examination. HEENT: Head is normocephalic, atraumatic. Eyes, pupils equal and reactive to light bilaterally. Extraocular movements are intact bilaterally. NECK: Supple. Good range of motion throughout. No evidence of erythema or exudates in the posterior pharynx. PULMONARY: Clear to auscultation bilaterally. No wheezing, no rales, no rhonchi . CARDIOVASCULAR: Positive S1 and S2. No murmur or gallop appreciated. ABDOMEN: Soft, nondistended, and nontender to palpation. Bowel sounds present. MUSCULOSKELETAL: Strength is 5/5 throughout NEUROLOGIC: Cranial nerves II through XII are grossly intact. . He has left-sided weakness from a prior CVA and PSYCHIATRIC: Normal affect and mood. EXTREMITIES: No edema. Good range of motion throughout. LABORATORY DATA: Lab findings show white count is 9.2, hemoglobin is 7.8, hematocrit is 24.7, platelets of 224. Coagulation, PT PTT 31. Chemistry, sodium 137, potassium 3.4, chloride creatinine is 3.5, glucose is 83, calcium is 7.7, magnesium 1.6. Microbiology, this is the urine culture from the Urology Clinic that showed Enterococcus faecium and also Klebsiella pneumoniae, multidrug resistant. IMAGING STUDIES: None. IMPRESSION: 1. Benign prostatic hypertrophy, status post transurethral resection of the prostate performed yesterday 10/12/2018, by Urology. 2. Multidrug resistant urinary tract infection, Enterococcus as well as Klebsiella pneumoniae. 3. End-stage renal disease, on hemodialysis, . 4. Type 2 diabetes. 5. . PLAN: At this time, Urology is following closely. He has continuous bladder irrigation as well. He has some hematuria, but it is clearing up. He seems to be anemic, hemoglobin 7.8, we will give 1 unit of packed RBCs today with dialysis. I already gave dialysis orders for today. He will have a 3K bath 3-hour duration, ultrafiltration 3 L. He also has multidrug resistant UTI, which I will defer to ID in terms of antibiotic therapy. The sensitivities are in the chart, which I will notify ID as well. Resume same antihypertensive medications. P.r.n. hydralazine. Accu-Cheks. PT, OT evaluation. Hold anticoagulation due to recent hematuria and TURP. We will monitor . The patient will likely benefit from an LTAC as he has MDRO UTI. Case management has been notified and aware. MD KELL Alvarenga/CHIP /[id number]
--- NOTE | 2018-10-13 19:28 | NUR ---
report given to oncoming nurse for continued care.
[2018-10-14] VITALS (8 sets, daily range): BP systolic 162–186; BP diastolic 72–81
[2018-10-14 05:16] LABS: ANION GAP 9.2 mmol/L (8-16); CALCIUM 7.8 mg/dL (8.4-10.2); CREATININE, SERUM 2.63 mg/dL (0.72-1.25); POTASSIUM 3.2 mmol/L (3.5-5.1)
[2018-10-14] MEDS: SODIUM CHLORIDE 0.9% 1000ML 1,000 ML IV SCH ×2 (06:19→23:42)
[2018-10-14 07:00] LABS: BASOPHILS % 0.5 % (0.0-1.0); EOSINOPHILS # (AUTO) 0.6 (0.0-0.4); EOSINOPHILS % 6.7 % (0.0-6.0); HEMATOCRIT 26.9 % (38.2-49.6); HEMOGLOBIN 8.8 g/dL (14.0-18.0); LYMPHOCYTES # (AUTO) 0.9 (1.0-3.2); LYMPHOCYTES % 9.9 % (18.0-39.1); MEAN CORPUSCULAR HEMOGLOBIN 30.7 pg (28-32); MEAN CORPUSCULAR HGB CONC 32.7 g/dL (31-35); MEAN CORPUSCULAR VOLUME 93.7 fL (81-99); MONOCYTES # (AUTO) 0.6 (0.2-0.8); MONOCYTES % 7.1 % (4.4-11.3); NEUTROPHILS # (AUTO) 6.6 (2.1-6.9); NEUTROPHILS % 75.3 % (38.7-80.0); PLATELET COUNT 183 x10e3/uL (140-360); RED BLOOD COUNT 2.87 x10e6/uL (4.3-5.7); RED CELL DISTRIBUTION WIDTH 15.2 % (11.7-14.4)
--- NOTE | 2018-10-14 08:40 | NUR ---
CASE MANAGEMENT ASSESSMENT Studio Camera Operator to bedside to discuss plan of care with patient/family. CM/SW role and care transitions discussed. Anticipated discharge plan discussed along with duration of care. CM/SW discussed patients right to make decisions in care. CM/SW work hours given. Patient lives: with son Baldev Admit/Transfer: from PACU Hospital/ER visits since last admit: Last admitted 1 month ago at this facility POA/Emergency contact: Baldev Jacobs [phone] Current/Previous Home Health: states he's currently with [facility]; nurse and PT/OT comes 2x/week PCP/Follow-up Care: states he follows up at [facility] Current/Previous DME: walker, wheelchair, BSC Medications (referring to index hospitalization or the first time you were in the hospital) a. Were changes made in your medications when you were in the hospital on August 2017? yes; Pt states BP meds changed b. Did you understand the changes? yes c. Were you able to obtain your new medications right away? yes; states he was transferred to [place] d. Were you able to take your medications like the doctor wanted you to? yes e. Did the hospital give you an accurate, easy to understand list of medications when you left? yes Scale of 1-10 how comfortable does patient feel with disease management in outpatient settin Other Services: none Employment Status: unemployed Areas of Concerns: VRE Referral Needs: LTAC Education Needs: medical management IMM/FULLER given and signed (if applicable): n/a Goal for discharge: LTAC CM received order for LTAC eval. Followed up with pt since he wanted to wait to speak with MD prior to making a decision. Pt stated he is agreeable with LTAC at [facility]. Choice letter signed and placed in chart. Copy to pt and placed in transition of care folder. CM notified Layla Parnell, liaison with [place]. She will come sisal picker clinicals. CM/SW left business card at the bedside with contact information. Name and number was also written on the patients whiteboard. Patient verbalized understanding of discussion. CM will follow-up with ongoing discharge and transition of care needs. Addendum: 10/14/18 at 1529 by Chantal Andersen CM Pt reports he has HD at [facility] //Wed. Also his son is his provider from 8a-12p everyday.
[2018-10-14] MEDS: PANTOPRAZOLE SOD 40 MG TABEC PO SCH (10:03)
[2018-10-14] MEDS: ISOSORBIDE DINITRATE 20 MG TAB PO SCH ×3 (10:03→20:55)
[2018-10-14] MEDS: LISINOPRIL 20 MG TAB PO SCH ×2 (10:03→16:20)
[2018-10-14] MEDS: NIFEDIPINE CR 30 MG TAB PO SCH ×2 (10:03→16:20)
[2018-10-14] MEDS: HYDRALAZINE HCL 25 MG TAB PO SCH ×3 (10:03→20:55)
[2018-10-14] MEDS: TAMSULOSIN HCL 0.4 MG CAP PO SCH (10:03)
[2018-10-14] MEDS: SERTRALINE HCL 50 MG TAB PO SCH (10:04)
--- NOTE | 2018-10-14 10:06 | NUR ---
Spoke with Dr. Sharma regarding IV abx. He stated that pt does not need IV abx. Can discharge home on Zyvox 600mg PO BID x [address] Norwood on ID's recommendation. Dr. Norwood wrote prescription for Zyvox and asked CM to get a mercer from pharmacy to make sure pt can afford it, since he has had problems with affording medications in the past. CM called pt's pharmacy [facility] and spoke to . Was informed that pt's copay would be $3.40, but his location does not have medication in stock. [facility] has plenty [phone] Norwood and pt. Pt stated he can go to [facility] to get his prescription filled. Dr. Norwood stated he is waiting on pt's urine to clear up before discharging home. Anticipating discharge this weekend. OK to resume current home health.
[2018-10-14] MEDS: LINEZOLID 600 MG/D5W 300ML 300 ML IV SCH ×2 (11:23→23:15)
--- NOTE | 2018-10-14 12:53 | Progress Note ---
DATE: 10/14/2018 Medicine Progress Note SUBJECTIVE: The patient is doing well today with no other complaints. He still has some hematuria in the Ricci. He will be going home with the Ricci according to the nurse. I discussed the case with ID, the patient will go home only on oral Zyvox. We ran it through the insurance and pharmacy, the patient will only repay about approximately 3 to 5 dollars for a two weeks' course. OBJECTIVE: VITAL SIGNS: Temperature is 97.2, pulse 88, respiratory rate is 18, blood pressure was 184/81, but he just took his blood pressure medications. GENERAL: In no acute distress, alert and oriented x3, cooperative on examination. HEENT: Head is normocephalic and atraumatic. Eyes; pupils are equal, round, and reactive to light bilaterally. Extraocular movements are intact bilaterally. No evidence of erythema or exudates in the posterior pharynx. Has poor dentition. NECK: Supple. Good range of motion throughout. PULMONARY: Clear to auscultation bilaterally. No wheezing, no rales, no rhonchi, no crackles appreciated. CARDIOVASCULAR: Positive S1 and S2. No murmur or gallop appreciated. ABDOMEN: Soft, nondistended, and nontender to palpation. Bowel sounds are present. MUSCULOSKELETAL: Strength is 5/5 throughout. NEUROLOGIC: Cranial nerves II through XII are grossly intact. . The patient has chronic right-sided weakness from a prior CVA. PSYCHIATRIC: Normal affect and mood. EXTREMITIES: No edema. Good range of motion throughout. LABORATORY DATA: White count 8.7, hemoglobin 8.8, hematocrit is 27, platelets of 183. Coagulation; PT 13, INR 0.9, PTT 31. Sodium 138, potassium 3.2, chloride 105, bicarb 27, anion gap of 9.2, BUN is 18, creatinine is 2.6, calcium is 7.8. MICROBIOLOGY: No growth. IMPRESSION: 1. Benign prostatic hypertrophy status post. 2. transurethral resection of the prostate. 3. performed on 10/12/2018 by Urology. 4. Multidrug-resistant urinary tract infection, Enterococcus and Klebsiella pneumoniae. 5. End-stage renal disease, on hemodialysis, Wednesday, , Wednesday. 6. Type 2 diabetes. 7. History of cerebrovascular accident in the past. PLAN: At this time, I discussed the case with ID and the patient will go home on oral Zyvox 600 mg p.o. b.i.d. x2 weeks. The cost is approximately 3 to 5 dollars verified with pharmacy. He is otherwise doing well. He received dialysis HD yesterday and scheduled for tomorrow. He continues to have some hematuria and once he has been cleared by Urology, we can discharge home. The patient does not need LTAC as he can go home on oral antibiotics. He will go home with the Ricci according to the nursing staff, that is urologist order. We will continue , monitor closely, get a.m. labs. MD KELL Alvarenga/CHIP /[id number]
--- NOTE | 2018-10-14 13:51 | NUR ---
Informed Dr. Mcgrath of ID's abx recommendations and no need for LTAC. He said to set up home health, have nursing teach family to irrigate and aspirate camilo with 60cc NS repeatedly QID and PRN, and DC home on Zyvox PO today. Dr. Norwood was informed of above. States he will DC pt tomorrow. CM will resume home health. CM called pt's home health [facility] and spoke with Mary Jo. Verified that pt is on service with them and currently receiving correction and PT. Informed her that MD plans to DC tomorrow. She will have the nurse reach out to pt tomorrow to schedule a time to come out and see pt. P [phone] F [phone]
--- NOTE | 2018-10-14 16:38 | NUR ---
Resumption order and clinicals faxed to [facility] P [phone] / F [phone].
--- NOTE | 2018-10-14 19:32 | NUR ---
Patient received lying in bed. AAO x 3. No c/o pain. No signs of respiratory distress. Ricci catheter draining blood tinged urine . Bed locked and in lowest position. Bed rails up x 2. Patient instructed to call for assistance when needed. Call light within reach.
[2018-10-15 00:12] VITALS: BP 156/70
--- NOTE | 2018-10-15 03:15 | NUR ---
Ricci irrigated as per MD's orders. Patient tolerated well.
[2018-10-15 03:50] VITALS: BP 156/70
[2018-10-15 06:04] LABS: BASOPHILS % 0.4 % (0.0-1.0); EOSINOPHILS # (AUTO) 0.6 (0.0-0.4); EOSINOPHILS % 7.9 % (0.0-6.0); HEMOGLOBIN 8.7 g/dL (14.0-18.0); LYMPHOCYTES % 13.7 % (18.0-39.1); MEAN CORPUSCULAR HEMOGLOBIN 30.2 pg (28-32); MEAN CORPUSCULAR HGB CONC 32.2 g/dL (31-35); MEAN CORPUSCULAR VOLUME 93.8 fL (81-99); MONOCYTES # (AUTO) 0.5 (0.2-0.8); MONOCYTES % 6.7 % (4.4-11.3); NEUTROPHILS # (AUTO) 5.3 (2.1-6.9); NEUTROPHILS % 70.9 % (38.7-80.0); PLATELET COUNT 211 x10e3/uL (140-360); RED BLOOD COUNT 2.88 x10e6/uL (4.3-5.7); RED CELL DISTRIBUTION WIDTH 15.1 % (11.7-14.4)
[2018-10-15 06:20] LABS: ANION GAP 13.2 mmol/L (8-16); CALCIUM 8.1 mg/dL (8.4-10.2); CREATININE, SERUM 3.66 mg/dL (0.72-1.25); POTASSIUM 3.2 mmol/L (3.5-5.1)
[2018-10-15 06:24] VITALS: BP 163/72
[2018-10-15 07:30] VITALS: BP 150/71
[2018-10-15] MEDS ORDERED: SODIUM CHLORIDE 0.9% 1000ML 1,000 ML ONE (07:40)
[2018-10-15 08:00] VITALS: BP 157/75
[2018-10-15] MEDS: HYDRALAZINE HCL 25 MG TAB PO SCH (12:16)
[2018-10-15] MEDS: LISINOPRIL 20 MG TAB PO SCH (12:16)
[2018-10-15] MEDS: ISOSORBIDE DINITRATE 20 MG TAB PO SCH (12:16)
[2018-10-15] MEDS: NIFEDIPINE CR 30 MG TAB PO SCH (12:16)
[2018-10-15] MEDS: TAMSULOSIN HCL 0.4 MG CAP PO SCH (12:20)
[2018-10-15] MEDS: SERTRALINE HCL 50 MG TAB PO SCH (12:20)
[2018-10-15] MEDS: PANTOPRAZOLE SOD 40 MG TABEC PO SCH (12:20)
[2018-10-15] MEDS: LINEZOLID 600 MG/D5W 300ML 300 ML IV SCH (12:20)
--- NOTE | 2018-10-16 07:57 | Discharge Summary ---
FINAL DISCHARGE DIAGNOSES: 1. Benign prostatic hypertrophy, status post TURP performed on 10/12/2018, by Urology. 2. Multidrug-resistant urinary tract infection, Enterococcus and Klebsiella, sensitive to Zyvox. 3. End-stage renal disease, on HD, TTS. 4. Type 2 diabetes. 5. History of cerebrovascular accident in the past, at baseline. CONSULTANTS: Urology and Infectious Disease. PHYSICAL EXAMINATION: VITAL SIGNS: Temperature is 96.4, pulse 86, respiratory rate is 18, blood pressure 157/75, and pulse ox is 100% on room air. LAB FINDINGS: Show white count , hemoglobin 8.7, hematocrit is 27, and platelets of 211. Coagulations are normal. Chemistry; sodium 139, potassium 3.2, chloride is 106, bicarb 23, anion gap of 13, BUN is 25, creatinine is 3.66, calcium is 8.1, and magnesium is 1.6. MICROBIOLOGY: Urine cultures here were found to be negative, but the urine cultures at Dr. Mcgrath's clinic, shows MDRO, Enterococcus, and Klebsiella pneumoniae. IMAGING STUDIES: None. HOSPITAL COURSE: This is a 53-year-old male, known to my service. He is a known ESRD HD patient, followed at [facility] by me and one of my partners, comes in for an elective status post TURP procedure that was performed by Dr. Mcgrath, Urology. The patient did well post-procedurally. The patient had urine cultures at the urologist's office, found to have MDRO, Enterococcus as well as Klebsiella pneumoniae. He was on IV antibiotics while here in the hospital. We consulted with ID and recommended Zyvox 600 mg p.o. b.i.d. for 2 total weeks. The patient will be discharged on that prescription. The patient has been cleared by Urology and ID for discharge home. The patient will continue with the Ricci until he is followed up in [address] Mcgrath in his office. On the day of discharge, vital signs stable, . The patient was seen, evaluated, examined, . The patient verbalized understanding and agreed to plan of care with followup appointment as an outpatient with the primary care physician in 1 week's time. The patient did receive hemodialysis while here in the hospital. MEDICATIONS: See med reconciliation form including Zyvox 600 mg p.o. b.i.d. x14 days. DISPOSITION: Home. CONDITION: Stable. DIET: 1. Heart healthy. 2. Renal. If there are any worsening symptoms, the patient is advised to come back to the ED for further evaluation. Discharge summary took greater than 35 minutes. MD KELL Alvarenga/MODL /[id number]
--- NOTE | 2018-10-17 10:57 | Operative Report ---
DATE OF PROCEDURE: 10/12/2018 SURGEON: Frank Mcgrath MD PREOPERATIVE DIAGNOSES: 1. Obstructive benign prostatic hyperplasia. 2. Urinary tract infection. POSTOPERATIVE DIAGNOSES: 1. Obstructive benign prostatic hyperplasia. 2. Urinary tract infection. OPERATIONS PERFORMED: 1. Cystourethroscopy with bilateral ureteral catheterization and retrograde ureteropyelography (separate staged procedure performed for the urinary tract infections). 2. Interpretation of retrograde ureteropyelography. 3. Cystourethroscopy with transurethral resection of the prostate utilizing the plasma button electrode (separate staged procedure performed for the obstructing benign prostatic hyperplasia). ANESTHESIA: General. COMPLICATIONS: None. CLINICAL SUMMARY: Malik Jacobs is a 53-year-old man with urinary retention. He is Ricci catheter dependent. Complicating this patient's case is the fact that he is on hemodialysis, nevertheless, he does make at least 500 mL of urine per day. He is brought to the operating room for the above procedures. He is aware of the risks of bleeding, infection, injury to adjacent structures, need for additional procedures, and elected to proceed. We also plan on admitting the patient postoperatively for continuous bladder irrigation and intravenous antibiotics. OPERATIVE PROCEDURE IN DETAIL: Informed consent was verified. Malik Jacobs was properly identified, taken to the operating room, placed on the cystoscopy table in supine position. Anesthesia was uneventfully begun. The patient was then carefully and gently repositioned in dorsal lithotomy position with all pressure points well padded. His Ricci catheter was removed and his genitalia were prepared and draped in usual sterile fashion. A 22.5-Maldivian cystoscope sheath with the visual obturator in place was atraumatically inserted into the patient's urethra and was guided to unremarkable distal urethra through the bulbar region, which demonstrates some scarring, but not obstruction. We passed a normal sphincteric region, went through the prostatic bed which was significant for visual obstructing BPH. We entered the patient's bladder, which exhibited heavy trabeculations and cellule formation. No suspicious lesions were identified. There were no stones. An 8-Maldivian catheter was used to cannulate each ureter and retrograde ureteropyelograms were performed. Interpretation of retrograde ureteropyelography: Contrast was instilled in retrograde fashion bilaterally. There were no tumors, no stones, and no diverticula. Unobstructed drainage was observed fluoroscopically. There was ureteral tortuosity and mild fullness of both upper collecting systems. The resectoscope sheath was atraumatically placed and we proceeded performing transurethral resection of the prostate utilizing the plasma button electrode. We vaporized the prostate from the bladder neck to maneuver past the verumontanum and down to the surgical capsule. Pinpoint electrocautery was utilized to achieve hemostasis. The resectoscope was withdrawn. A Ricci catheter was placed. He was placed on continuous irrigation with completely clear efflux and the patient was uneventfully reversed from the anesthesia and taken to the recovery room in stable condition following placement of a belladonna and opium suppository, which revealed a prostate that is approximately 40 g in size without any nodules palpable. There were no complications to the procedure. He tolerated the procedure well. We will admit the patient postoperatively for continuous bladder irrigation as well as intravenous antibiotics and of course monitor the patient on an ongoing basis. MD MISTY Celis/CHIP /[id number]
== END 2018-10-15 15:16 | disposition home or self-care (01) | DRG 713 ==
LOC: OR 08:03 → PACU V 11:46 → MED/SURG 13:52 → MED/SURG2 10-13 12:33
PROVIDERS: ADMIT Internal Medicine; ATTEND Internal Medicine
PROC: 0T788ZZ Dilation of Bilateral Ureters, Via Natural or Artificial Opening Endoscopic (ICD-10-PCS; 2018-10-12)
PROC: BT141ZZ Fluoroscopy of Kidneys, Ureters and Bladder using Low Osmolar Contrast (ICD-10-PCS; principal; 2018-10-12 10:00)
PROC: 0V508ZZ Destruction of Prostate, Via Natural or Artificial Opening Endoscopic (ICD-10-PCS; 2018-10-12 10:00)
PROC: 5A1D70Z Performance of Urinary Filtration, Intermittent, Less than 6 Hours Per Day (ICD-10-PCS; 2018-10-13)
PROC: 30243N1 Transfusion of Nonautologous Red Blood Cells into Central Vein, Percutaneous Approach (ICD-10-PCS; 2018-10-13)
PROC: 5A1D70Z Performance of Urinary Filtration, Intermittent, Less than 6 Hours Per Day (ICD-10-PCS; 2018-10-15)
DX: N40.1 Benign prostatic hyperplasia with lower urinary tract symptoms (principal); N18.6 End stage renal disease; N13.8 Other obstructive and reflux uropathy; N39.0 Urinary tract infection, site not specified; I12.0 Hypertensive chronic kidney disease with stage 5 chronic kidney disease or end stage renal disease; R33.8 Other retention of urine; B95.2 Enterococcus as the cause of diseases classified elsewhere; B96.1 Klebsiella pneumoniae [K. pneumoniae] as the cause of diseases classified elsewhere; Z16.24 Resistance to multiple antibiotics; Z86.73 Personal history of transient ischemic attack (TIA), and cerebral infarction without residual deficits; E11.22 Type 2 diabetes mellitus with diabetic chronic kidney disease; Z99.2 Dependence on renal dialysis; Z79.4 Long term (current) use of insulin; Z16.22 Resistance to vancomycin related antibiotics; D64.9 Anemia, unspecified
CPT/HCPCS: 36415; 74420; 80048; 82948; 83735; 85025; 85610; 85730; 86704; 86705; 86706; 86850; 86900; 86920; 87086; 87340; 90962; J0360; J0696; J1580; J1644; J2001; J2020; J2405; J2765; J7030; J7040; J7050; P9016

== ENCOUNTER 2019-02-04 20:56 | Inpatient (IN) | payer MEDICARE ==
[~2019-02-04] VITALS: Ht 167.6 cm; Wt 75.7 kg
[~2019-02-04 20:56] MED LIST changes: +NIFEDIPINE10 MG PO; +TAMSULOSIN HCL0.4 MG PO
--- NOTE | 2019-02-04 21:10 | NUR ---
PLACED LIMB ALERT ON PT'S L WRIST DUE TO FISTULA IN L ARM.
[2019-02-04] MEDS ORDERED: ACETAMINOPHEN 325 MG TAB PO ONE (21:15)
[2019-02-04] MEDS ORDERED: PIPER-TAZ 3.375 GM 50 ML IV ONE (21:30)
[2019-02-04] MEDS ORDERED: LEVOFLOXACIN 750MG/D5W 150ML 150 ML IV STA (21:30)
[2019-02-04 21:35] LABS: BASOPHILS # (AUTO) 0.1 (0.0-0.1); BASOPHILS % 0.8 % (0.0-1.0); EOSINOPHILS # (AUTO) 0.2 (0.0-0.4); EOSINOPHILS % 3.8 % (0.0-6.0); HEMATOCRIT 36.1 % (38.2-49.6); LYMPHOCYTES # (AUTO) 0.5 (1.0-3.2); LYMPHOCYTES % 7.5 % (18.0-39.1); MEAN CORPUSCULAR HEMOGLOBIN 29.9 pg (28-32); MEAN CORPUSCULAR HGB CONC 33.2 g/dL (31-35); MEAN CORPUSCULAR VOLUME 89.8 fL (81-99); MONOCYTES # (AUTO) 0.4 (0.2-0.8); MONOCYTES % 6.7 % (4.4-11.3); NEUTROPHILS # (AUTO) 5.1 (2.1-6.9); NEUTROPHILS % 80.7 % (38.7-80.0); PLATELET COUNT 163 x10e3/uL (140-360); RED BLOOD COUNT 4.02 x10e6/uL (4.3-5.7); RED CELL DISTRIBUTION WIDTH 14.7 % (11.7-14.4)
[2019-02-04 21:55] LABS: ALBUMIN 3.6 g/dL (3.5-5.0); ALBUMIN/GLOBULIN RATIO 0.9 (0.8-2.0); ANION GAP 14.6 mmol/L (8-16); CALCIUM 8.8 mg/dL (8.4-10.2); CREATININE, SERUM 2.83 mg/dL (0.72-1.25); POTASSIUM 3.6 mmol/L (3.5-5.1)
[2019-02-04] MEDS: SODIUM CHLORIDE 0.9% 1000ML 1,000 ML IV SCH (21:55)
[2019-02-04 21:58] LABS: INFLUENZAE A&B ANTIGEN (RAPID) NEGATIVE (NEGATIVE)
[2019-02-04 21:59] LABS: STREPTOCOCCUS GRP A ANTIGEN POSITIVE (NEGATIVE)
--- NOTE | 2019-02-04 22:02 | Diagnostic Imaging Report ---
EXAMINATION: CHEST SINGLE (PORTABLE) INDICATION: ^cough ^[id number] ^[id number] COMPARISON: 08/15/2018 FINDINGS: AP view TUBES and LINES: Right IJ double-lumen dialysis catheter in place with tips projecting over right atrium and cavoatrial junction. LUNGS: Limited by body habitus. Lungs are well inflated. Mild central peribronchial cuffing. PLEURA: No pleural effusion or pneumothorax. HEART AND MEDIASTINUM: The cardiomediastinal silhouette is unremarkable. BONES AND SOFT TISSUES: No acute osseous lesion. Soft tissues are unremarkable. UPPER ABDOMEN: No free air under the diaphragm. IMPRESSION: Mild central peribronchial cuffing. Underlying pneumonia in the perihilar regions cannot be excluded. Signed by: Dr. Pedrito Martinez MD on 02/04/2019 9:59 PM
[2019-02-04 22:09] LABS: CREATINE KINASE MB 0.9 ng/mL (0-5.0)
[2019-02-04] MEDS ORDERED: ALBUTEROL SULF 0.083% NEB SOLN 3 ML NEB NEB PRN (22:15)
--- NOTE | 2019-02-04 23:00 | NUR ---
Admitted to room 285 via stretcher. Alert and orient to name, hospital, time and date. Hx: CVA with right sided weakness. Left arm limb alert, fistula. Right upper chest dialysis double lumen port access. c/o fever and cough. Dx: PNA and strep throat. Resp even and unlabored. denies SOB. Denies pain at this time. Assist x1. Bilateral LE contracted. Skin warm and dry. Bilateral feet openness between toes. No BM x3 days. Abdomen soft and nontender. Denies dysuria. Oriented to call garcia. Bed low and locked.
[2019-02-04] MEDS ORDERED: AMLODIPINE BESY10 MG PO (23:29)
[2019-02-04 23:38] VITALS: BP 169/77
[2019-02-05] VITALS (8 sets, daily range): BP systolic 144–199; BP diastolic 69–91
[2019-02-05 03:16] LABS: BASOPHILS # (AUTO) 0.1 (0.0-0.1); BASOPHILS % 0.9 % (0.0-1.0); EOSINOPHILS # (AUTO) 0.2 (0.0-0.4); EOSINOPHILS % 4.1 % (0.0-6.0); HEMATOCRIT 34.4 % (38.2-49.6); HEMOGLOBIN 11.4 g/dL (14.0-18.0); LYMPHOCYTES # (AUTO) 0.4 (1.0-3.2); LYMPHOCYTES % 7.5 % (18.0-39.1); MEAN CORPUSCULAR HGB CONC 33.1 g/dL (31-35); MEAN CORPUSCULAR VOLUME 90.5 fL (81-99); MONOCYTES # (AUTO) 0.4 (0.2-0.8); MONOCYTES % 7.3 % (4.4-11.3); NEUTROPHILS # (AUTO) 4.2 (2.1-6.9); NEUTROPHILS % 79.6 % (38.7-80.0); PLATELET COUNT 130 x10e3/uL (140-360)
[2019-02-05 03:32] LABS: ANION GAP 14.7 mmol/L (8-16); CALCIUM 9.2 mg/dL (8.4-10.2); CREATININE, SERUM 3.2 mg/dL (0.72-1.25); POTASSIUM 3.7 mmol/L (3.5-5.1)
[2019-02-05] MEDS ORDERED: HYDRALAZINE HCL 100 MG TABLET PO PRN (04:45)
--- NOTE | 2019-02-05 05:00 | NUR ---
x1 vomit, green emesis d/t increased coughing. Received order Dr. Sim Cortes 100mg Q8 hs prn and start BP meds.
[2019-02-05] MEDS: BENZONATATE 100 MG CAP PO PRN ×2 (05:45→13:12)
[2019-02-05 06:20] LABS: CREATINE KINASE MB 0.9 ng/mL (0-5.0)
[2019-02-05] MEDS: SODIUM CHLORIDE 0.9% 1000ML 1,000 ML IV SCH (09:00)
[2019-02-05] MEDS: ISOSORBIDE MONONITRATE 20 MG TAB PO SCH ×3 (09:00→21:39)
[2019-02-05] MEDS: AMLODIPINE BESYLATE 10 MG TAB PO SCH (09:00)
--- NOTE | 2019-02-05 09:00 | NUR ---
Pt received resting in bed. Alert and oriented x4. Pt with bilateral lower extremities contracted, left arm AV fistula, and right chest wall dialysis catheter. Noted healing stage II to sacrum. Pt on droplet isolation for Strep. Oriented to staff and surroundings. Encouraged to press call garcia if help needed. Pt verbalized understanding of teaching. Will monitor
[2019-02-05] MEDS: LISINOPRIL 10 MG TAB PO SCH ×2 (09:01→16:42)
--- NOTE | 2019-02-05 11:13 | NUR ---
Service change to
[2019-02-05 11:35] LABS: CHOL/HDL RATIO 3.6 (3.9-4.7)
[2019-02-05 11:36] LABS: CREATINE KINASE MB 0.8 ng/mL (0-5.0)
[2019-02-05] MEDS ORDERED: DOCUSATE SODIUM 100 MG CAP PO PRN (13:00)
[2019-02-05] MEDS ORDERED: HYDROCODONE/APAP 5MG-325MG TAB PO PRN (13:00)
[2019-02-05] MEDS: GUAIFENESIN/CODEINE 10 ML CUP PO PRN ×2 (13:12→19:30)
[2019-02-05] MEDS ORDERED: HYDRALAZINE HCL 20 MG/ML VIAL IV PRN (13:15)
[2019-02-05] MEDS: CHLORASEPTIC SPRAY 177 ML BTL MM PRN ×2 (16:46→21:39)
[2019-02-05] MEDS: ONDANSETRON HCL 4 MG ORAL DISINTEGRATING TAB PO PRN (16:47)
--- NOTE | 2019-02-05 19:05 | NUR ---
Bedside report completed with morning nurse. Pt alert and orient to name. c/o coughing, nonproductive. 20g IV right AC in place. Denies pain at this time. Call garcia within reach. Bed low and locked. Will continue to monitor.
--- NOTE | 2019-02-05 19:43 | History and Physical ---
CHIEF COMPLAINT: Cough, congestion, fever. HISTORY OF PRESENT ILLNESS: This is a 53-year-old male, known to my service. He is actually my dialysis patient who goes to [facility] at here in [facility], who has a right chest wall tunneled dialysis catheter and has an AV fistula in left upper extremity. Also, history of CVA in the past, has difficulty speaking from a prior stroke, who presents to the ED with complaints of cough, congestion, fever, that has been ongoing for the last two days. The patient reports that it still has been hurting which he was diagnosed with strep throat here in the ED. Also reports having fever. Decreased oral intake, but no chest pain or palpitations. Denies any diarrhea or any abdominal pain. The patient was seen and evaluated at bedside on the medical floor. He is currently doing well with no other issues at this time. He is afebrile during my evaluation. REVIEW OF SYSTEMS: Pertinent positives: Sore throat, cough, congestion, subjective fever. Pertinent negatives: Denies any chest pain palpitation, nausea, vomiting, diarrhea, dysuria, hematuria, frequency, urgency, lightheadedness, dizziness, abdominal pain, headaches, shortness of breath, or any other complaints. The rest of 14-point review of systems are reviewed with the patient and are negative. ALLERGIES: NO KNOWN DRUG ALLERGIES. HOME MEDICATIONS: Amlodipine 10 mg daily, Dexilant 30 mg daily, hydralazine, isosorbide dinitrate 20 mg p.o. t.i.d., lisinopril 20 mg b.i.d., sertraline 50 mg daily. PAST MEDICAL HISTORY: ESRD on dialysis. His hse coordinator is Dr. Luna who is one of my colleagues. Hypertension, history of CVA in the past with dysphagia and difficulty with mobilization. PAST SURGICAL HISTORY: Left upper extremity AV fistula, right chest wall tunneled dialysis catheter. FAMILY HISTORY: Hypertension, diabetes. SOCIAL HISTORY: No drugs. No alcohol. Does not smoke. Good social support. PHYSICAL EXAMINATION: VITAL SIGNS: Temperature is 99.7, pulse is 84, respiratory rate is 16, blood pressure is 146/70 pulse ox 99% on room air. GENERAL: Not in acute distress. Alert and oriented x3. Cooperative on examination. HEENT: Head is normocephalic and atraumatic. Eyes; pupils are equal, round, and reactive to light bilaterally. Extraocular movements are intact bilaterally. Throat, no evidence of erythema or exudates in the posterior pharynx. Has poor dentition. NECK: Supple. Good range of motion. PULMONARY: Clear to auscultation bilaterally. No wheezing, no rales, no rhonchi, no crackles appreciated. CARDIOVASCULAR: Positive S1, S2. No murmurs, rubs, or gallops appreciated. ABDOMEN: Soft, nondistended, and nontender to palpation. Bowel sounds present. MUSCULOSKELETAL: Strength is 5/5 throughout. No evidence of any muscle deficits on examination. No weakness appreciated. NEUROLOGICAL: Cranial nerves 2 through 12 grossly intact. No evidence of any neurological deficits on exam. SKIN: Intact. Warm to touch. Good cap refill. PSYCHIATRIC: Normal affect and mood. EXTREMITIES: No edema. Good range of motion throughout. LAB FINDINGS: Show white count of 5.3, hemoglobin 11.4, hematocrit 34, platelets of 130. Chemistry; sodium 138, potassium 3.7, chloride 99, bicarb 28, anion gap of 14, BUN 28, creatinine 3.2, glucose is 77, calcium is 9.2. Troponins were all negative. LDL 75. LFTs were within normal range. Group B strep was positive. Influenza was negative. Blood cultures are pending. IMAGING STUDIES: Chest x-ray, mild central peribronchial cuffing. Underlying pneumonia in the perihilar regions cannot be excluded. IMPRESSION: 1. Cough, congestion and fever with positive Streptococcus pneumoniae strep throat. 2. End-stage renal disease, on dialysis. 3. Uncontrolled hypertension. 4. History of cerebrovascular accident in the past. 5. Acid reflux. 6. Probable healthcare associated pneumonia. PLAN: At this time group A strep pharyngitis was positive. We will continue with IV antibiotics. We will also treat him with IV Zosyn, DC Levaquin and treat him for probable healthcare associated pneumonia. I will take care of the pneumoniae and also strep pharyngitis. Add Chloraseptic spray for pain control as well. Resume same home medications as well as antihypertensive medications with p.r.n. hydralazine. Blood cultures are pending. He will receive dialysis tomorrow by me. The patient reports he has dialysis on Wednesday, and Wednesday so next treatment will be Wednesday. Otherwise, we will continue same plan of care and monitor very closely. Discussed case with nursing staff. MD KELL Alvarenga/CHIP /[id number]
[2019-02-05] MEDS: PIPER-TAZ 3.375 GM 50 ML IV SCH (21:38)
[2019-02-05] MEDS: BALSAM PERU/CASTOR OIL 60 GM OINT...G. TP SCH (21:39)
[2019-02-05] MEDS ORDERED: LEVOFLOXACIN 750MG/D5W 150ML IV SCH (22:15)
[2019-02-06] VITALS (7 sets, daily range): BP systolic 150–177; BP diastolic 67–81
[2019-02-06 06:22] LABS: BASOPHILS # (AUTO) 0.1 (0.0-0.1); EOSINOPHILS # (AUTO) 0.2 (0.0-0.4); EOSINOPHILS % 3.4 % (0.0-6.0); HEMATOCRIT 31.9 % (38.2-49.6); HEMOGLOBIN 10.3 g/dL (14.0-18.0); LYMPHOCYTES # (AUTO) 0.7 (1.0-3.2); LYMPHOCYTES % 13.1 % (18.0-39.1); MEAN CORPUSCULAR HEMOGLOBIN 29.5 pg (28-32); MEAN CORPUSCULAR HGB CONC 32.3 g/dL (31-35); MEAN CORPUSCULAR VOLUME 91.4 fL (81-99); MONOCYTES # (AUTO) 0.6 (0.2-0.8); MONOCYTES % 11.4 % (4.4-11.3); NEUTROPHILS # (AUTO) 3.7 (2.1-6.9); NEUTROPHILS % 70.5 % (38.7-80.0); PLATELET COUNT 122 x10e3/uL (140-360); RED BLOOD COUNT 3.49 x10e6/uL (4.3-5.7); RED CELL DISTRIBUTION WIDTH 15.5 % (11.7-14.4)
[2019-02-06] MEDS: ACETAMINOPHEN 325 MG TAB PO PRN (06:30)
[2019-02-06] MEDS: GUAIFENESIN/CODEINE 10 ML CUP PO PRN ×2 (06:30→21:25)
[2019-02-06] MEDS: BENZONATATE 100 MG CAP PO PRN (06:30)
--- NOTE | 2019-02-06 06:30 | NUR ---
Admin Tylenol low temp 100, Robitussin for cough, and Zofran ODT for nausea. Resp even and unlabored, 18. Call garcia within reach.
[2019-02-06 06:36] LABS: ANION GAP 17.1 mmol/L (8-16); CALCIUM 8.4 mg/dL (8.4-10.2); POTASSIUM 4.1 mmol/L (3.5-5.1)
[2019-02-06 06:54] LABS: CREATININE, SERUM 5.05 mg/dL (0.72-1.25)
--- NOTE | 2019-02-06 07:20 | NUR ---
PATIENT IS AWAKE AND IN STABLE CONDITION WITH NO S/S OF RESPIRATORY DISTRESS. PATIENT'S LOWER EXTREMITIES ARE CONTRACTED. NO PAIN VOICED. HEEL PROTECTORS APPLIED. BED ALARM ON. CALL LIGHT IS WITHIN REACH, PATIENT INSTRUCTED TO CALL FOR ASSISTANCE NEEDED.
[2019-02-06] MEDS: PIPER-TAZ 3.375 GM 50 ML IV SCH ×2 (09:54→21:20)
[2019-02-06] MEDS: ASPIRIN 81 MG CHEW TAB PO SCH (09:54)
[2019-02-06] MEDS: ISOSORBIDE MONONITRATE 20 MG TAB PO SCH ×3 (09:54→21:20)
[2019-02-06] MEDS: PANTOPRAZOLE SOD 40 MG TABEC PO SCH (09:54)
[2019-02-06] MEDS: AMLODIPINE BESYLATE 10 MG TAB PO SCH (09:54)
[2019-02-06] MEDS: LISINOPRIL 10 MG TAB PO SCH ×2 (09:55→16:37)
[2019-02-06] MEDS: BALSAM PERU/CASTOR OIL 60 GM OINT...G. TP SCH ×2 (09:55→21:00)
[2019-02-06] MEDS: SERTRALINE HCL 50 MG TAB PO SCH (09:55)
--- NOTE | 2019-02-06 11:44 | NUR ---
WOUND CARE NURSE INITIAL CONSULTATION. 53 YEAR OLD MALE ADMITTED TO [facility] WITH DX OF PNEUMONIA AND STREP THROAT. HEAD TO TOE SKIN ASSESSMENT PERFORMED TODAY. PT PRESENTS WITH DRY AND SCALY SKIN TP BILATERAL FOOT. NURSING WITH CONCERN OF REDNESS TO SACRUM, NO OPEN AREAS ARE NOTED AT THIS TIME. LABS: WBC: 5.25 HGBA1C: 5.1 ALB: 3.6 RECOMMENDATIONS: CONTINUE WITH ALTERNATING LOW AIR LOSS MATTRESS. PROVIDE PT WITH BILATERAL HEEL PROTECTORS AND PILLOW SUSPENSIONS REPOSITION PT EVERY TWO HOURS AND PRN. APPLY MOISTURIZER TO BILATERAL FOOT DAILY. THANKS DR. MENDENHALL FOR THIS CONSULTATION Addendum: 02/06/19 at 1149 by Carly Wills RN Amended: Links added.
--- NOTE | 2019-02-06 15:01 | Progress Note ---
DATE: 02/06/2019 Medicine Progress Note SUBJECTIVE: The patient reports he is feeling much better today. He has no more cough, congestion. His toe is less painful today. Antibiotic . No overnight events. PHYSICAL EXAMINATION: VITAL SIGNS: His T-max was 100.1. His current temperature is 98.5, pulse 86, respiratory rate 20, blood pressure 152/72, pulse ox 95% on room air. GENERAL: Not in acute distress. Alert and oriented x3. Cooperative on examination. HEENT: Head is normocephalic and atraumatic. Eyes; pupils are equal, round, and reactive to light bilaterally. Extraocular movements are intact bilaterally. Throat, no evidence of erythema or exudates in the posterior pharynx. Has poor dentition. NECK: Supple. Good range of motion. PULMONARY: Clear to auscultation bilaterally. No wheezing, no rales, no rhonchi, no crackles appreciated. CARDIOVASCULAR: Positive S1, S2. No murmurs, rubs, or gallops appreciated. ABDOMEN: Soft, nondistended, and nontender to palpation. Bowel sounds present. MUSCULOSKELETAL: Strength is 5/5 throughout. No evidence of any muscle deficits on examination. No weakness appreciated. NEUROLOGICAL: Cranial nerves II through XII grossly intact. No evidence of any neurological deficits on exam. SKIN: Intact. Warm to touch. Good cap refill. PSYCHIATRIC: Normal affect and mood. EXTREMITIES: No edema. Good range of motion throughout. LAB FINDINGS: Show white count 5.2, hemoglobin 10.3, hematocrit 31.9, platelets of 122. Chemistry; sodium 136, potassium 4.1, chloride 99, bicarb 24, anion gap of 17, BUN is 38, creatinine is 5, glucose is 79, LDL 75. MICROBIOLOGY: Blood cultures no growth. IMAGING STUDIES: None new. IMPRESSION: 1. Cough, congestion and fever with Streptococcus pneumoniae strep throat. 2. End-stage renal disease, on hemodialysis, Wednesday, and Wednesday. 3. Uncontrolled hypertension. 4. History of cerebrovascular accident in the past with residual weakness and tenderness. 5. Acid reflux. 6. Healthcare associated pneumonia. PLAN: At this time, continue with IV Zosyn b.i.d. Symptomatically, he has improved tremendously. But he still had a low-grade fever last night. Continue with antitussive medications. Blood pressure is better controlled now. HD treatment is tomorrow on his normal schedule. We will monitor overnight. Get a.m. labs. If improved likely discharge tomorrow if not, may need additional days until he improves. MD KELL Alvarenga/CHIP /[id number]
[2019-02-06] MEDS: ONDANSETRON HCL 4 MG ORAL DISINTEGRATING TAB PO PRN (16:44)
--- NOTE | 2019-02-06 19:10 | NUR ---
PATIENT IS IN STABLE CONDITION WITH NO S/S OF RESPIRATORY DISTRESS. NO PAIN VOICED. PATIENT IS DUE TO HAVE DIALYSIS TOMORROW. CALL LIGHT IS WITHIN REACH, PATIENT INSTRUCTED TO CALL FOR ASSISTANCE NEEDED. BEDSIDE REPORT GIVEN TO ONCOMING NURSE.
--- NOTE | 2019-02-06 19:15 | NUR ---
CALL PLACED OUT TO [facility] FOR PATIENT TO RECEIVE DIALYSIS TOMORROW, 02/07/19.
[2019-02-07] VITALS (9 sets, daily range): BP systolic 107–221; BP diastolic 60–98
[2019-02-07] MEDS: ACETAMINOPHEN 325 MG TAB PO PRN ×2 (00:23→20:40)
[2019-02-07 05:45] LABS: ANION GAP 20.1 mmol/L (8-16); CALCIUM 8.3 mg/dL (8.4-10.2); CREATININE, SERUM 6.24 mg/dL (0.72-1.25); POTASSIUM 4.1 mmol/L (3.5-5.1)
[2019-02-07 06:04] LABS: BASOPHILS # (AUTO) 0.1 (0.0-0.1); BASOPHILS % 0.6 % (0.0-1.0); EOSINOPHILS # (AUTO) 0.2 (0.0-0.4); EOSINOPHILS % 2.1 % (0.0-6.0); HEMATOCRIT 31.5 % (38.2-49.6); LYMPHOCYTES # (AUTO) 0.8 (1.0-3.2); LYMPHOCYTES % 9.9 % (18.0-39.1); MEAN CORPUSCULAR HGB CONC 31.7 g/dL (31-35); MEAN CORPUSCULAR VOLUME 91.3 fL (81-99); MONOCYTES # (AUTO) 0.8 (0.2-0.8); MONOCYTES % 10.3 % (4.4-11.3); NEUTROPHILS % 76.7 % (38.7-80.0); PLATELET COUNT 135 x10e3/uL (140-360); RED BLOOD COUNT 3.45 x10e6/uL (4.3-5.7); RED CELL DISTRIBUTION WIDTH 15.2 % (11.7-14.4)
--- NOTE | 2019-02-07 06:52 | NUR ---
PATIENT IS AWAKE AND IN STABLE CONDITION WITH NO S/S OF RESPIRATORY DISTRESS. NO PAIN VOICED. DIAPER APPLIED. HEEL PROTECTORS APPLIED. BED ALARM ON. CALL LIGHT IS WITHIN REACH, PATIENT INSTRUCTED TO CALL FOR ASSISTANCE NEEDED.
[2019-02-07] MEDS: PIPER-TAZ 3.375 GM 50 ML IV SCH ×2 (08:53→20:30)
[2019-02-07] MEDS: PANTOPRAZOLE SOD 40 MG TABEC PO SCH (08:53)
[2019-02-07] MEDS: BALSAM PERU/CASTOR OIL 60 GM OINT...G. TP SCH ×2 (08:53→20:30)
[2019-02-07] MEDS: SERTRALINE HCL 50 MG TAB PO SCH (08:53)
[2019-02-07] MEDS: ASPIRIN 81 MG CHEW TAB PO SCH (08:53)
[2019-02-07] MEDS: AMLODIPINE BESYLATE 10 MG TAB PO SCH (09:00)
[2019-02-07] MEDS: ISOSORBIDE MONONITRATE 20 MG TAB PO SCH ×3 (09:00→20:30)
[2019-02-07] MEDS: LISINOPRIL 10 MG TAB PO SCH ×2 (09:00→15:52)
--- NOTE | 2019-02-07 10:57 | Progress Note ---
DATE: 02/07/2019 Medicine Progress Note SUBJECTIVE: The patient states he is doing well today with no other complaints. Blood pressure is still elevated overnight. He has no other complaints. He states he has an appointment for tomorrow, but his T-max was 101.3. PHYSICAL EXAMINATION: VITAL SIGNS: Temperature is 99.9, T-max 101.3, pulse 100, respiratory rate is 20, blood pressure is 146/71, but overnight his blood pressure was extremely high. He is saturating 94% on room air. GENERAL: Not in acute distress. Alert and oriented x3. Cooperative on examination. HEENT: Head is normocephalic and atraumatic. Eyes; pupils are equal, round, and reactive to light bilaterally. Extraocular movements are intact bilaterally. Throat, no evidence of erythema or exudates in the posterior pharynx. Has poor dentition. NECK: Supple. Good range of motion. PULMONARY: Clear to auscultation bilaterally. No wheezing, no rales, no rhonchi, no crackles appreciated. CARDIOVASCULAR: Positive S1, S2. No murmurs, rubs, or gallops appreciated. ABDOMEN: Soft, nondistended, and nontender to palpation. Bowel sounds present. MUSCULOSKELETAL: Strength is 5/5 throughout. No evidence of any muscle deficits on examination. No weakness appreciated. NEUROLOGICAL: Cranial nerves II through XII grossly intact. No evidence of any neurological deficits on exam. SKIN: Intact. Warm to touch. Good cap refill. PSYCHIATRIC: Normal affect and mood. EXTREMITIES: No edema. Good range of motion throughout. LABORATORY FINDINGS: Show white count 7.8, hemoglobin 10, hematocrit 31.5, and platelets of 135. Chemistry; sodium 136, potassium 4.1, chloride 99, bicarb 21, anion gap of 20, BUN is 15, creatinine is 6.2, glucose 75, calcium 8.3. MICROBIOLOGY: Blood cultures were negative. IMPRESSION: 1. Fever presumed to be from Streptococcus pneumoniae from strep throat, now continues to have a T-max of 101.3. 2. End-stage renal disease, on hemodialysis TTS. 3. Uncontrolled hypertension. 4. History of cerebrovascular accident in the past with residual weakness. 5. Acid reflux. 6. Healthcare associated pneumonia. PLAN: At this time, the patient continues to have fever. We will consult with ID. Continue with IV antibiotics for now. Repeat labs in the morning. Repeat blood cultures now. He will have his hemodialysis later today. Discussed plan of care with nursing staff. MD KELL Alvarenga/CHIP /[id number]
[2019-02-07] MEDS ORDERED: HEPARIN SOD (PORCINE) 1000 UNIT/ML SDV IV PRN (14:15)
[2019-02-07] MEDS ORDERED: SODIUM CHLORIDE 0.9% 250ML 500 ML IV PRN (14:15)
[2019-02-07] MEDS ORDERED: SODIUM CHLORIDE 0.9% 1000ML 2,000 ML IV PRN (14:15)
--- NOTE | 2019-02-07 14:23 | NUR ---
PATIENT COMPLETED DIALYSIS 3 LITERS REMOVED. PATIENT IS ALERT AND IN STABLE CONDITION WITH NO S/S OF RESPIRATORY DISTRESS.
--- NOTE | 2019-02-07 14:49 | NUR ---
DISCUSSED IN BARRIER ROUNDS, CULTURES PENDING, RUNNING TEMP 101.3, SHABIB CONSULT, WHEN TEMP RESOLVED CAN DISCHARGE.
[2019-02-07] MEDS ORDERED: VANCOMYCIN 1GM/NS 250 ML 250 ML IV SCH (15:15)
[2019-02-07] MEDS: ONDANSETRON HCL 4 MG ORAL DISINTEGRATING TAB PO PRN (15:58)
--- NOTE | 2019-02-07 16:36 | NUR ---
Nutrition Intervention Note RD Recommendation(s) for Physician: - Continue renal diet as ordered - Rec Nepro BID to increase protein-calorie intake for HD Plan of Care: RD following, monitoring for tolerance and adequacy, ONS rec Nutrition reason for involvement: Nutrition Risk Trigger MST RD Assessment 02/07 - 53yo M, who was admitted for PNA and strep throat. Pt receives HD today. + Strep with fever at 101.3 F, per RN. Visited pt in the room. Pt reports fair appetite with 50-100% meal intake. Pt complains of nausea and Zofran is given. No vomiting episode noted. Pt denies any chewing or swallowing difficulty. Pt reports of some weight loss since started on HD. Estimated of ~12lbs weight loss in 6 months. No sign of muscle or fat loss noted per observation. Pt drinks 1-2 bottles of protein shakes at home. ONS has been ordered per pts request. Will continue to monitor and follow. Principal Problems/Diagnoses: Streptococcus pneumonia PMH: ESRD on dialysis, hypertension, CVA in the past with speech difficulty GI: abdomen flat, round, non-tender, flatus present Skin: No pressure wound, per wound care notes Labs: (02/07) BUN 53 H, Creatinine 6.24 H, Ca 8.3 L Meds: zofran, antibiotics, protonix Ht: 66in Wt: 179.25lb 08/20/2018, 167lb 02/07/2019 BMI: 27 kg/m2 IBW: 142lb Malnutrition Evaluation (02/07/2019) The patient does not meet criteria for a specified degree of malnutrition at this time. Will re-evaluate at follow-up as appropriate. Nutrition Prescription (Diet Order): renal diet Diet Adequacy: Not meeting calorie needs, not meeting protein needs Nutrition Care Level: low Nutrition Diagnosis: Increased protein needs related to ESRD as evidenced by pt requiring 35g/kg/d protein. Goal: Patient will meet 75-100% of estimated needs by follow up Progress: Progressing Interventions: Modified diet, Commercial beverages Monitoring/Evaluation: Total energy intake, Total protein intake, Modified diet, supplement, Weight change Signed: Mona Ornelas MS, RD, LD
--- NOTE | 2019-02-07 19:14 | NUR ---
PATIENT IS IN STABLE CONDITION WITH NO S/S OF RESPIRATORY DISTRESS. NO PAIN VOICED. CONTINUOUS PULSE OX APPLIED. DIAPER APPLIED. BED ALARM ON. CALL LIGHT IS WITHIN REACH, PATIENT INSTRUCTED TO CALL FOR ASSISTANCE NEEDED. BEDSIDE REPORT GIVEN TO ONCOMING NURSE.
--- NOTE | 2019-02-07 21:45 | Consultation ---
DATE OF CONSULTATION: 02/07/2019 REASON FOR CONSULTATION: The patient has fever and chills. HISTORY OF PRESENT ILLNESS: This patient is a very pleasant 53-year-old male, who has history of renal failure, on dialysis. The patient has right-sided chest wall tunneled dialysis catheter. He has an AV fistula in the left upper extremity, history of CVA in the past, difficulty speaking, difficulty swallowing, comes in with fever and chills and cough. The patient was admitted, started on dialysis and IV antibiotic. I was asked to see him. PAST MEDICAL HISTORY: Hypertension, end-stage renal disease, on hemodialysis, history of CVA, atherosclerotic disease, history of dysphagia, history of hypertension. PAST SURGICAL HISTORY: Left upper extremity AV fistula, right chest wall tunneled catheter. MEDICATIONS: The patient is on aspirin, Zosyn, and lisinopril. ALLERGIES: NKA. SOCIAL HISTORY: There is no smoking, drug abuse, or alcohol abuse. FAMILY HISTORY: Hypertension. REVIEW OF SYSTEMS: HEENT: Negative. PULMONARY: Shortness of breath and cough. : Negative. GI: Negative. SKIN: There is no other rash. Other symptoms within normal limits. PHYSICAL EXAMINATION: GENERAL: He is currently alert, oriented, does not seem to be in acute distress. VITAL SIGNS: Stable, currently afebrile. HEENT: He is not icteric. NECK: Supple. CHEST: Clear. Coarse murmur. ABDOMEN: Soft. Bowel sounds present. No tenderness. No hepatosplenomegaly. EXTREMITIES: No edema. SKIN: There is no rash. LABORATORY DATA: White count was 6.28, today 7.8, hemoglobin 10. Blood cultures negative. His group A strep screen was positive. IMAGING DATA: Chest x-ray, which was done, showed pneumonia. IMPRESSION: 1. Pneumonia, currently on Zosyn, probably strep, can give Rocephin 1 g a day. He is still running fever. We will change the antibiotic to vancomycin as I am concerned about resistant strep. We will get blood cultures. 2. End-stage renal disease. 3. History of hypertension, history of aspiration, history of cerebrovascular accident. We will follow. MD MARYAM Bunn/CHIP /[id number]
--- NOTE | 2019-02-07 22:19 | NUR ---
PATIENT IS NOW MOVED TO ROOM 284 PER ORDERS OF JANITOR. PATIENT IS STABLE NO SIGNS OF DISTRESS, BED IS LOCKED AND LOW, CALL LIGHT WITHIN EASY REACH, WILL CONTINUE TO MONITOR.
[2019-02-08] VITALS (8 sets, daily range): BP systolic 127–163; BP diastolic 65–78
--- NOTE | 2019-02-08 00:51 | NUR ---
PATIENT IN STABLE CONDITION, NO DISTRESS NOTED. CONTINUOUS PULSE OX IS INTACT, NO FEVER PRESENT, PATIENT RESTING COMFORTABLY. BED IS LOCKED AND IN LOWEST POSITION, CALL LIGHT WITHIN EASY REACH, WILL CONTINUE TO MONITOR.
[2019-02-08 05:32] LABS: BASOPHILS % 0.5 % (0.0-1.0); EOSINOPHILS # (AUTO) 0.3 (0.0-0.4); EOSINOPHILS % 4.4 % (0.0-6.0); HEMATOCRIT 32.2 % (38.2-49.6); HEMOGLOBIN 10.5 g/dL (14.0-18.0); LYMPHOCYTES # (AUTO) 1.1 (1.0-3.2); LYMPHOCYTES % 17.1 % (18.0-39.1); MEAN CORPUSCULAR HEMOGLOBIN 29.2 pg (28-32); MEAN CORPUSCULAR HGB CONC 32.6 g/dL (31-35); MEAN CORPUSCULAR VOLUME 89.7 fL (81-99); MONOCYTES # (AUTO) 0.7 (0.2-0.8); NEUTROPHILS # (AUTO) 4.2 (2.1-6.9); NEUTROPHILS % 66.4 % (38.7-80.0); PLATELET COUNT 149 x10e3/uL (140-360); RED BLOOD COUNT 3.59 x10e6/uL (4.3-5.7); RED CELL DISTRIBUTION WIDTH 15.4 % (11.7-14.4)
[2019-02-08 05:55] LABS: ANION GAP 19.9 mmol/L (8-16); CALCIUM 8.5 mg/dL (8.4-10.2); CREATININE, SERUM 5.23 mg/dL (0.72-1.25); POTASSIUM 3.9 mmol/L (3.5-5.1)
[2019-02-08] MEDS: LISINOPRIL 10 MG TAB PO SCH ×2 (08:15→17:09)
[2019-02-08] MEDS: SERTRALINE HCL 50 MG TAB PO SCH (08:15)
[2019-02-08] MEDS: PIPER-TAZ 3.375 GM 50 ML IV SCH ×2 (08:16→21:00)
[2019-02-08] MEDS: PANTOPRAZOLE SOD 40 MG TABEC PO SCH (08:16)
[2019-02-08] MEDS: ASPIRIN 81 MG CHEW TAB PO SCH (08:16)
[2019-02-08] MEDS: ISOSORBIDE MONONITRATE 20 MG TAB PO SCH ×3 (08:16→21:00)
[2019-02-08] MEDS: AMLODIPINE BESYLATE 10 MG TAB PO SCH (08:16)
--- NOTE | 2019-02-08 13:38 | Progress Note ---
DATE: 02/08/2019 Medicine Progress Note SUBJECTIVE: The patient is doing well today with no other issues. He did have a T-max of 100.8 last night. He is otherwise doing much better. His symptoms are better and resolved. PHYSICAL EXAMINATION: VITAL SIGNS: Temperature is 98, pulse 83, respiratory rate 16, blood pressure 148/68, pulse ox 95% on room air. GENERAL: Not in acute distress. Alert and oriented x3. Cooperative on examination. HEENT: Head is normocephalic and atraumatic. Eyes; pupils are equal, round, and reactive to light bilaterally. Extraocular movements are intact bilaterally. Throat, no evidence of erythema or exudates in the posterior pharynx. Has poor dentition. NECK: Supple. Good range of motion. PULMONARY: Clear to auscultation bilaterally. No wheezing, no rales, no rhonchi, no crackles appreciated. CARDIOVASCULAR: Positive S1, S2. No murmurs, rubs, or gallops appreciated. ABDOMEN: Soft, nondistended, and nontender to palpation. Bowel sounds present. MUSCULOSKELETAL: Strength is 5/5 throughout. No evidence of any muscle deficits on examination. No weakness appreciated. NEUROLOGICAL: Cranial nerves II through XII grossly intact. No evidence of any neurological deficits on exam. SKIN: Intact. Warm to touch. Good cap refill. PSYCHIATRIC: Normal affect and mood. EXTREMITIES: No edema. Good range of motion throughout. LABORATORY DATA: White count is 6.3, hemoglobin 10.5, hematocrit 32, and platelets of 149. Chemistry; sodium 138, potassium 3.9, chloride 99, bicarb 23, anion gap of 19, BUN 39, creatinine of 5.2, calcium 8.5. All cultures so far have been negative. IMAGING DATA: None. IMPRESSION: 1. Streptococcus pneumoniae concern for underlying pneumonia as well as strep pharyngitis. 2. End-stage renal disease, on dialysis Wednesday, and Wednesday. 3. Uncontrolled hypertension. 4. History of cerebrovascular accident in the past with residual weakness. 5. Acid reflux. 6. Healthcare associated pneumonia. PLAN: IV antibiotics were rearranged by ID. Follow ID recommendations. He did have a low-grade fever last night. He is otherwise stable, doing well with no complaints. If afebrile tomorrow for 24 hours, we will discharge home on oral antibiotics and make sure he gets dialysis prior to being discharged. MD KELL Alvarenga/CHIP /[id number]
[2019-02-08] MEDS: BALSAM PERU/CASTOR OIL 60 GM OINT...G. TP SCH ×2 (17:09→21:00)
--- NOTE | 2019-02-08 17:10 | NUR ---
pt in bed rsting no c/o pain or discomfort.
--- NOTE | 2019-02-08 21:00 | NUR ---
PATIENT IN STABLE CONDITION, NO DISTRESS NOTED. HE IS AOX3, RESTING COMFORTABLY, SIDE RAILS ARE UP, BED IS IN LOWEST POSITION, CALL LIGHT WITHIN REACH, WILL CONTINUE TO MONITOR.
[2019-02-09] VITALS: BP 129/63
[2019-02-09 04:00] VITALS: BP 136/73
[2019-02-09 05:40] LABS: BASOPHILS # (AUTO) 0.1 (0.0-0.1); BASOPHILS % 0.9 % (0.0-1.0); EOSINOPHILS # (AUTO) 0.4 (0.0-0.4); EOSINOPHILS % 7.1 % (0.0-6.0); HEMATOCRIT 30.6 % (38.2-49.6); HEMOGLOBIN 9.7 g/dL (14.0-18.0); LYMPHOCYTES # (AUTO) 1.4 (1.0-3.2); LYMPHOCYTES % 24.6 % (18.0-39.1); MEAN CORPUSCULAR HEMOGLOBIN 28.9 pg (28-32); MEAN CORPUSCULAR HGB CONC 31.7 g/dL (31-35); MEAN CORPUSCULAR VOLUME 91.1 fL (81-99); MONOCYTES # (AUTO) 0.5 (0.2-0.8); MONOCYTES % 8.9 % (4.4-11.3); NEUTROPHILS # (AUTO) 3.2 (2.1-6.9); NEUTROPHILS % 57.8 % (38.7-80.0); PLATELET COUNT 150 x10e3/uL (140-360); RED BLOOD COUNT 3.36 x10e6/uL (4.3-5.7); RED CELL DISTRIBUTION WIDTH 15.5 % (11.7-14.4)
[2019-02-09 05:51] LABS: ANION GAP 19.2 mmol/L (8-16); CALCIUM 8.4 mg/dL (8.4-10.2); CREATININE, SERUM 6.8 mg/dL (0.72-1.25); POTASSIUM 4.2 mmol/L (3.5-5.1)
--- NOTE | 2019-02-09 06:30 | NUR ---
GOT A CALL FROM LAB REGARDING THE PATIENT'S BUN LEVEL. WILL CONTINUE TO MONITOR THE SITUATION.
[2019-02-09 07:39] VITALS: BP 165/83
[2019-02-09 11:37] VITALS: BP 135/77
--- NOTE | 2019-02-09 14:00 | NUR ---
PT DISCHARGED HOME ,IV DCD WITHOUT REDNESS OR SWELLING,TRANSPORTED TO [facility] VIA W/C.
[2019-02-09] MEDS ORDERED: VANCOMYCIN 1GM/NS 250 ML 250 ML IV SCH (15:00)
--- NOTE | 2019-02-09 18:25 | Discharge Summary ---
FINAL DISCHARGE DIAGNOSES: 1. Streptococcus pneumoniae with probable underlying Streptococcus pharyngitis. 2. Healthcare-associated pneumonia. 3. End-stage renal disease, on dialysis Wednesday, , and Wednesday. 4. Uncontrolled hypertension. 5. History of cerebrovascular accident in the past with residual weakness. 6. History of acid reflux. CONSULTANTS: Infectious Disease. VITAL SIGNS: Temperature is 96.5, pulse 87, respiratory rate is 18, blood pressure 165/83, and pulse ox is 95% on room air. LABORATORY DATA: Lab findings show white count is 5.6, hemoglobin 9.7, hematocrit is 30.6, platelets of 150. Chemistry; sodium 136, potassium 4.2, chloride 98, bicarb 23, anion gap of 19, BUN 64, creatinine 6.8, glucose is 90. Hemoglobin A1c was found to be 5.1. Calcium was 8.4. Troponins were all negative. Albumin was 3.6. LDL was 75. MICROBIOLOGY: Blood cultures x4 were all negative. IMAGING STUDIES: Chest x-ray showed some mild central peribronchial cuffing. Underlying pneumonia in parahilar regions cannot be excluded. HOSPITAL COURSE: This is a 53-year-old male, known to my service. He has a history of CVA in the past with residual weakness and slurred speech at baseline, ESRD on dialysis, comes in with cough, congestion, and fever. The patient was admitted, treated for underlying Streptococcus pneumoniae pharyngitis. He was also treated for underlying healthcare-associated pneumonia. While here, he developed fever requiring blood cultures with broad-spectrum IV antibiotics and ID consultation. His blood cultures were all negative. His rapid strep was found to be positive. He was treated accordingly with IV antibiotics and discharged on oral Levaquin 250 mg p.o. q.48 hours and to be taken after hemodialysis for a total of five doses. I have discussed this with the patient who verbalized understanding. I also discussed this with ID. On discharge, he has been afebrile for more than 36 hours, doing well, tolerating diet, has no other complaints. On the day of discharge, vital signs were all stable, labs reviewed and stable. The patient was seen and evaluated and examined thoroughly on the day of discharge with no other complaints. The patient verbalized understanding and he agreed to plan of care, to follow up as an outpatient with PCP in 1 week and his normal hemodialysis chair time as scheduled. MEDICATIONS: See med reconciliation form. DISPOSITION: Home. CONDITION: Stable. DIET: Heart healthy. In the event of any worsening symptoms, the patient was advised to come back to the ED for further evaluation. Discharge summary took greater than 35 minutes. MD KELL Alvarenga/MODMirta /[id number]
== END 2019-02-09 14:02 | disposition home or self-care (01) | DRG 193 ==
LOC: ER 20:56 → ERHOLD 22:32 → MED/SURG3 22:54
PROVIDERS: ADMIT Internal Medicine; ATTEND Internal Medicine
PROC: 5A1D70Z Performance of Urinary Filtration, Intermittent, Less than 6 Hours Per Day (ICD-10-PCS; principal; 2019-02-07)
PROC: 5A1D70Z Performance of Urinary Filtration, Intermittent, Less than 6 Hours Per Day (ICD-10-PCS; 2019-02-09)
DX: J13 Pneumonia due to Streptococcus pneumoniae (principal); N18.6 End stage renal disease; I12.0 Hypertensive chronic kidney disease with stage 5 chronic kidney disease or end stage renal disease; I69.359 Hemiplegia and hemiparesis following cerebral infarction affecting unspecified side; J02.0 Streptococcal pharyngitis; Z99.2 Dependence on renal dialysis; K21.9 Gastro-esophageal reflux disease without esophagitis; I69.328 Other speech and language deficits following cerebral infarction; I69.320 Aphasia following cerebral infarction; I16.0 Hypertensive urgency
CPT/HCPCS: 36415; 71045; 80048; 80053; 80061; 82550; 82553; 83036; 83518; 83605; 83880; 84484; 85025; 86704; 86706; 87040; 87340; 87400; 90962; 93005; 96361; 99284; J0360; J1644; J2543; J3370; J7030; Q0162

== ENCOUNTER 2020-11-02 15:14 | Emergency (ER) | payer MEDICARE ==
[~2020-11-02] VITALS: Ht 167.6 cm; Wt 75.7 kg
[2020-11-02 16:04] LABS: BASOPHILS # (AUTO) 0.1 (0.0-0.1); BASOPHILS % 1.3 % (0.0-1.0); EOSINOPHILS # (AUTO) 0.4 (0.0-0.4); EOSINOPHILS % 5.3 % (0.0-6.0); HEMATOCRIT 35.4 % (38.2-49.6); HEMOGLOBIN 11.1 g/dL (14.0-18.0); LYMPHOCYTES # (AUTO) 1.1 (1.0-3.2); LYMPHOCYTES % 15.9 % (18.0-39.1); MEAN CORPUSCULAR HEMOGLOBIN 29.6 pg (28-32); MEAN CORPUSCULAR HGB CONC 31.4 g/dL (31-35); MEAN CORPUSCULAR VOLUME 94.4 fL (81-99); MONOCYTES # (AUTO) 0.6 (0.2-0.8); MONOCYTES % 7.6 % (4.4-11.3); NEUTROPHILS % 69.3 % (38.7-80.0); PLATELET COUNT 187 x10e3/uL (140-360); RED BLOOD COUNT 3.75 x10e6/uL (4.3-5.7); RED CELL DISTRIBUTION WIDTH 15.9 % (11.7-14.4)
[2020-11-02 16:10] LABS: INR 0.95; PROTHROMBIN TIME 13.2 seconds (11.9-14.5)
[2020-11-02 16:11] LABS: PARTIAL THROMBOPLASTIN TIME 28.2 seconds (23.8-35.5)
[2020-11-02 16:18] LABS: ALBUMIN 3.9 g/dL (3.5-5.0); ALKALINE PHOSPHATASE 99 IU/L (40-150); ANION GAP 23.2 mmol/L (8-16); BLOOD UREA NITROGEN 72 mg/dL (7-26); BUN/CREATININE RATIO 7 (6-25); CALCIUM 7.8 mg/dL (8.4-10.2); CARBON DIOXIDE 20 mmol/L (22-29); CHLORIDE 102 mmol/L (98-107); CREATINE KINASE 134 IU/L (30-200); CREATININE, SERUM 10.04 mg/dL (0.72-1.25); EST GLOMERULAR FILTRATION RATE 5 ML/MIN (60-); GLUCOSE 84 mg/dL (74-118); MAGNESIUM 2.2 MG/DL (1.3-2.1); POTASSIUM 4.2 mmol/L (3.5-5.1); SODIUM 141 mmol/L (136-145)
[2020-11-02 16:22] LABS: ALANINE AMINOTRANSFERASE < 6 IU/L (0-55)
[2020-11-02] MEDS ORDERED: HYDRALAZINE HCL 20 MG/ML VIAL IV NR (16:30)
[2020-11-02 18:15] VITALS: BP 185/76
== END 2020-11-02 18:16 | disposition home or self-care (01) ==
LOC: ER 15:30
DX: S00.83XA Contusion of other part of head, initial encounter (principal); V00.811A Fall from moving wheelchair (powered), initial encounter; Y92.008 Other place in unspecified non-institutional (private) residence as the place of occurrence of the external cause; I12.0 Hypertensive chronic kidney disease with stage 5 chronic kidney disease or end stage renal disease; E11.22 Type 2 diabetes mellitus with diabetic chronic kidney disease; N18.6 End stage renal disease; Z99.2 Dependence on renal dialysis
CPT/HCPCS: 36415; 70450; 71045; 72125; 80053; 82550; 82553; 83735; 84484; 85025; 85610; 85730; 93005; 99284; J0360

== ENCOUNTER 2021-09-13 13:48 | Emergency (ER) | payer MEDICARE ==
[~2021-09-13] VITALS: Ht 167.6 cm; Wt 75.7 kg
== END 2021-09-13 14:40 | disposition home or self-care (01) ==
LOC: ER 13:52
DX: I12.0 Hypertensive chronic kidney disease with stage 5 chronic kidney disease or end stage renal disease (principal); N18.6 End stage renal disease; Z86.73 Personal history of transient ischemic attack (TIA), and cerebral infarction without residual deficits
CPT/HCPCS: 99282

== ENCOUNTER 2022-09-24 23:21 | Emergency (ER) | payer MEDICARE ==
[~2022-09-24] VITALS: Ht 167.6 cm; Wt 75.7 kg
[2022-09-25] MEDS ORDERED: DICYCLOMINE HCL 20 MG/2 ML VIAL IM ONE (00:15)
[2022-09-25 00:16] LABS: BASOPHILS # (AUTO) 0.1 (0.0-0.1); BASOPHILS % 0.9 % (0.0-1.0); EOSINOPHILS # (AUTO) 0.2 (0.0-0.4); EOSINOPHILS % 3.9 % (0.0-6.0); HEMOGLOBIN 9.6 g/dL (14.0-18.0); LYMPHOCYTES # (AUTO) 1.1 (1.0-3.2); MEAN CORPUSCULAR HEMOGLOBIN 29.3 pg (28-32); MEAN CORPUSCULAR HGB CONC 28.2 g/dL (31-35); MEAN CORPUSCULAR VOLUME 103.7 fL (81-99); MONOCYTES # (AUTO) 0.5 (0.2-0.8); MONOCYTES % 8.2 % (4.4-11.3); NEUTROPHILS # (AUTO) 3.8 (2.1-6.9); NEUTROPHILS % 67.1 % (38.7-80.0); PLATELET COUNT 173 x10e3/uL (140-360); RED BLOOD COUNT 3.28 x10e6/uL (4.3-5.7); RED CELL DISTRIBUTION WIDTH 17.3 % (11.7-14.4)
[2022-09-25 00:32] LABS: ALBUMIN 3.5 g/dL (3.5-5.0); ALBUMIN/GLOBULIN RATIO 0.8 (0.8-2.0); ALKALINE PHOSPHATASE 149 IU/L (40-150); ANION GAP 19.1 mmol/L (8-16); BLOOD UREA NITROGEN 85 mg/dL (7-26); BUN/CREATININE RATIO 7 (6-25); CALCIUM 8.8 mg/dL (8.4-10.2); CARBON DIOXIDE 19 mmol/L (22-29); CHLORIDE 101 mmol/L (98-107); CREATININE, SERUM 11.82 mg/dL (0.72-1.25); GLUCOSE 109 mg/dL (74-118); LIPASE 50 U/L (8-78); POTASSIUM 4.1 mmol/L (3.5-5.1); SODIUM 135 mmol/L (136-145)
[2022-09-25 00:34] LABS: ALANINE AMINOTRANSFERASE < 6 IU/L (0-55)
[2022-09-25] MEDS ORDERED: COLACE100 M1 PO (01:41)
[2022-09-25 02:01] VITALS: BP 129/84
== END 2022-09-25 02:21 | disposition home or self-care (01) ==
LOC: ER 23:30
DX: K59.00 Constipation, unspecified (principal); I12.0 Hypertensive chronic kidney disease with stage 5 chronic kidney disease or end stage renal disease; N18.6 End stage renal disease; Z99.2 Dependence on renal dialysis; R94.31 Abnormal electrocardiogram [ECG] [EKG]; Z86.73 Personal history of transient ischemic attack (TIA), and cerebral infarction without residual deficits
CPT/HCPCS: 36415; 74176; 80053; 83690; 85025; 93005; 99284; J0500

== ENCOUNTER 2024-04-09 14:51 | Emergency (ER) | payer MEDICARE ==
[~2024-04-09] VITALS: Ht 167.6 cm; Wt 93.9 kg
[~2024-04-09 14:51] MED LIST changes: +COLACE100 M1 PO; +ENEMA133 M1 PR; +MIRALAX17 GM PO
[2024-04-09 15:22] LABS: BASOPHILS # (AUTO) 0.1 (0.0-0.1); BASOPHILS % 1.6 % (0.0-1.0); EOSINOPHILS # (AUTO) 0.4 (0.0-0.4); EOSINOPHILS % 5.5 % (0.0-6.0); HEMATOCRIT 30.3 % (38.2-49.6); HEMOGLOBIN 9.3 g/dL (14.0-18.0); LYMPHOCYTES # (AUTO) 1.3 (1.0-3.2); LYMPHOCYTES % 18.4 % (18.0-39.1); MEAN CORPUSCULAR HEMOGLOBIN 30.7 pg (28-32); MEAN CORPUSCULAR HGB CONC 30.7 g/dL (31-35); MONOCYTES # (AUTO) 0.6 (0.2-0.8); MONOCYTES % 8.7 % (4.4-11.3); NEUTROPHILS # (AUTO) 4.5 (2.1-6.9); NEUTROPHILS % 63.7 % (38.7-80.0); PLATELET COUNT 227 x10e3/uL (140-360); RED BLOOD COUNT 3.03 x10e6/uL (4.3-5.7); RED CELL DISTRIBUTION WIDTH 16.3 % (11.7-14.4); WHITE BLOOD COUNT 7.05 x10e3/uL (4.8-10.8)
[2024-04-09 15:46] LABS: ALBUMIN 3.2 g/dL (3.5-5.0); ALBUMIN/GLOBULIN RATIO 0.8 (0.8-2.0); ANION GAP 17.7 mmol/L (8-16); BILIRUBIN,TOTAL 0.5 mg/dL (0.2-1.2); CALCIUM 8.8 mg/dL (8.4-10.2); CREATININE, SERUM 8.92 mg/dL (0.72-1.25); POTASSIUM 3.7 mmol/L (3.5-5.1); TOTAL PROTEIN 7.1 g/dL (6.5-8.1)
[2024-04-09 18:00] VITALS: RESP 18
[2024-04-10 00:38] VITALS: PULSE 60; TEMP 97.7
[2024-04-10 02:21] VITALS: BP 157/66; O2SAT 98
== END 2024-04-10 02:23 | disposition other institution (70) ==
LOC: ER 14:58
DX: N49.2 Inflammatory disorders of scrotum (principal); I12.0 Hypertensive chronic kidney disease with stage 5 chronic kidney disease or end stage renal disease; N18.6 End stage renal disease; Z99.2 Dependence on renal dialysis; Z86.73 Personal history of transient ischemic attack (TIA), and cerebral infarction without residual deficits
CPT/HCPCS: 36415; 72192; 76870; 80053; 85025; 93976; 99284; J2543

== ENCOUNTER 2024-07-09 13:13 | Emergency (ER) | payer MEDICARE ==
[~2024-07-09] VITALS: Ht 167.6 cm; Wt 93.9 kg
[2024-07-09 14:05] VITALS: PULSE 70; RESP 18; TEMP 98.3; O2SAT 100
[2024-07-09 14:28] LABS: BASOPHILS # (AUTO) 0.1 (0.0-0.1); EOSINOPHILS # (AUTO) 0.3 (0.0-0.4); EOSINOPHILS % 5.2 % (0.0-6.0); HEMATOCRIT 25.1 % (38.2-49.6); HEMOGLOBIN 7.5 g/dL (14.0-18.0); LYMPHOCYTES % 16.9 % (18.0-39.1); MEAN CORPUSCULAR HGB CONC 29.9 g/dL (31-35); MEAN CORPUSCULAR VOLUME 96.9 fL (81-99); MONOCYTES # (AUTO) 0.6 (0.2-0.8); MONOCYTES % 10.4 % (4.4-11.3); NEUTROPHILS # (AUTO) 4.1 (2.1-6.9); NEUTROPHILS % 66.2 % (38.7-80.0); PLATELET COUNT 162 x10e3/uL (140-360); RED BLOOD COUNT 2.59 x10e6/uL (4.3-5.7); RED CELL DISTRIBUTION WIDTH 18.3 % (11.7-14.4); WHITE BLOOD COUNT 6.15 x10e3/uL (4.8-10.8)
[2024-07-09 14:33] LABS: INR 1.04; PROTHROMBIN TIME 14.2 seconds (11.9-14.5)
[2024-07-09 14:34] LABS: PARTIAL THROMBOPLASTIN TIME 33.5 seconds (23.8-35.5)
[2024-07-09 14:41] LABS: ALBUMIN 2.9 g/dL (3.5-5.0); ALBUMIN/GLOBULIN RATIO 0.8 (0.8-2.0); ALKALINE PHOSPHATASE 95 IU/L (40-150); ANION GAP 21.2 mmol/L (8-16); BILIRUBIN,TOTAL 0.5 mg/dL (0.2-1.2); BLOOD UREA NITROGEN 56 mg/dL (7-26); BUN/CREATININE RATIO 5 (6-25); CALCIUM 8.6 mg/dL (8.4-10.2); CARBON DIOXIDE 19 mmol/L (22-29); CHLORIDE 98 mmol/L (98-107); CREATINE KINASE 30 IU/L (30-200); CREATININE, SERUM 11.62 mg/dL (0.72-1.25); EST GLOMERULAR FILTRATION RATE 5 ML/MIN (>=60); GLUCOSE 85 mg/dL (74-118); MAGNESIUM 1.9 MG/DL (1.3-2.1); POTASSIUM 4.2 mmol/L (3.5-5.1); SODIUM 134 mmol/L (136-145); TOTAL PROTEIN 6.5 g/dL (6.5-8.1)
[2024-07-09 14:46] LABS: TROPONIN I 0.023 ng/mL (0-0.300)
[2024-07-09 14:50] LABS: ALANINE AMINOTRANSFERASE < 6 IU/L (0-55)
[2024-07-09] MEDS: SODIUM CHLORIDE 0.9% 250ML 250 ML IV ONE (15:19)
[2024-07-09] MEDS: Vancomycin IV 1 GM in SODIUM CHLORIDE 0.9% 250ML 250 ML IV ONE (15:30)
== END 2024-07-09 16:58 | disposition home or self-care (01) ==
LOC: ER 13:23
DX: R53.1 Weakness (principal); I12.0 Hypertensive chronic kidney disease with stage 5 chronic kidney disease or end stage renal disease; N18.6 End stage renal disease; Z99.2 Dependence on renal dialysis; Z91.158 Patient's noncompliance with renal dialysis for other reason; Z86.73 Personal history of transient ischemic attack (TIA), and cerebral infarction without residual deficits
CPT/HCPCS: 36415; 71045; 73630; 80053; 82550; 83735; 84484; 85025; 85610; 85730; 87040; 93005; 99284; J0696; J3370; J7050